=== PATIENT | female | born 1970 | race American Indian/Alaskan Native ===

== ENCOUNTER → 2022-04-10 09:18 | Outpatient (BNVA) | payer MEDICAID, SELFPAY | PROVIDERS: PCP Internal Medicine; Visit Provider Internal Medicine Endocrinology, Diabetes & Metabolism | DX: E11.65 Type 2 diabetes mellitus with hyperglycemia (principal); Z79.4 Long term (current) use of insulin | CPT/HCPCS: 82947; 83036; 99202 ==

== ENCOUNTER → 2022-05-07 12:55 | Outpatient (BNVA) | payer MEDICAID, SELFPAY | PROVIDERS: PCP Internal Medicine; Visit Provider Registered Nurse Diabetes Educator | DX: E11.65 Type 2 diabetes mellitus with hyperglycemia (principal) | CPT/HCPCS: 99211; 99499 ==

== ENCOUNTER → 2022-05-22 12:32 | Outpatient (BNVA) | payer MEDICAID, SELFPAY | PROVIDERS: PCP Internal Medicine; Visit Provider Registered Nurse Diabetes Educator | DX: E11.65 Type 2 diabetes mellitus with hyperglycemia (principal) | CPT/HCPCS: 99211; 99499 ==

== ENCOUNTER → 2022-05-30 14:56 | Outpatient (BNVA) | payer MEDICAID, SELFPAY | PROVIDERS: PCP Internal Medicine; Visit Provider Surgery Vascular Surgery | DX: I83.11 Varicose veins of right lower extremity with inflammation (principal) | CPT/HCPCS: 99212 ==

== ENCOUNTER → 2022-06-11 12:38 | Outpatient (BNVA) | payer MEDICAID, SELFPAY | PROVIDERS: PCP Internal Medicine; Visit Provider Orthopaedic Surgery | DX: G56.01 Carpal tunnel syndrome, right upper limb (principal) | CPT/HCPCS: 99202 ==

== ENCOUNTER → 2022-07-08 10:38 | Outpatient (BNVA) | payer MEDICAID, SELFPAY | PROVIDERS: PCP Internal Medicine; Visit Provider Dietitian, Registered | DX: E11.65 Type 2 diabetes mellitus with hyperglycemia (principal); Z71.3 Dietary counseling and surveillance | CPT/HCPCS: 97802 ==

== ENCOUNTER 2022-07-18 10:05 | Outpatient (REF) | payer MEDICAID, SELFPAY ==
--- NOTE | ~2022-07-18 | US_ITS ---
EXAMINATION: US LOWER EXTREMITY VENOUS (REFLUX EXAM), BILATERAL CLINICAL INDICATION: Varicose veins COMPARISON: None. TECHNIQUE: Color flow triplex imaging and compression Doppler was performed to evaluate both the deep and the superficial systems bilaterally. To evaluate the superficial system, the examination was performed in the upright position. Color-flow Doppler ultrasound and compression ultrasound were utilized. In addition, maneuvers were utilized to demonstrate reflux. FINDINGS: 1. DEEP VENOUS ULTRASOUND OF THE RIGHT LOWER EXTREMITY: Common Femoral Vein: Compressible, normal respiratory variation and augmented flow. Femoral Vein: Compressible, normal color flow and augmentation. Popliteal Vein: Compressible, normal augmentation. Deep Reflux: There is no evidence of reflux in the deep system in either the common femoral vein or the popliteal vein. There is no evidence of a Joseph's cyst. 2. SUPERFICIAL ULTRASOUND WITH DOPPLER OF RIGHT LOWER EXTREMITY: GREAT SAPHENOUS VEIN: Saphenofemoral Junction: 0.8 cm; Reflux: 0 ms Proximal Thigh: 0.6 cm; Reflux: 0 ms Mid Thigh: 0.4 cm; Reflux: 3592 ms Above Knee: 0.3 cm; Reflux: 0 ms At Knee: 0.3 cm; Reflux: 0 ms Below Knee: 0.2 cm; Reflux: 0 ms Mid Calf: 0.3 cm; Reflux: 0 ms Ankle: 0.3 cm; Reflux: 0 ms DUPLICATED MEDIAL GREAT SAPHENOUS VEIN: SFJ: 0.4cm Reflux: NA Mid thigh: 0.2 cm Reflux: 1932ms DUPLICATED LATERAL GREAT SAPHENOUS VEIN: Diameter: None Imaged Reflux: NA SMALL SAPHENOUS VEIN: Proximal: 0.4 cm; Reflux: 0 ms Distal: 0.3 cm; Reflux: 0 ms VEIN OF GIACOMINI: None Imaged. PERFORATORS: Location: None Imaged Size: NA Reflux: NA VARICOSITIES: Location: None Imaged Size: NA Reflux: NA 3. DEEP VENOUS ULTRASOUND OF THE LEFT LOWER EXTREMITY: Common Femoral Vein: Compressible, normal respiratory variation and augmented flow. Femoral Vein: Compressible, normal color flow and augmentation. Popliteal Vein: Compressible, normal augmentation. Deep Reflux: There is no evidence of reflux in the deep system in either the common femoral vein or the popliteal vein. There is no evidence of a Joseph's cyst. 4. SUPERFICIAL ULTRASOUND WITH DOPPLER OF LEFT LOWER EXTREMITY: GREAT SAPHENOUS VEIN: Saphenofemoral Junction: 0.5 cm; Reflux: 0 ms Proximal Thigh: 0.5 cm; Reflux: 0 ms Mid Thigh: 0.4 cm; Reflux: 3604 ms Above Knee: 0.5 cm; Reflux: 3600 ms At Knee: 0.7 cm; Reflux: 3604 ms Below Knee: 0.5 cm; Reflux: 3304 ms Mid Calf: 0.3 cm; Reflux: 2276 ms Ankle: 0.2 cm; Reflux: 1680 ms DUPLICATED MEDIAL GREAT SAPHENOUS VEIN: Diameter: None Imaged Reflux: NA DUPLICATED LATERAL GREAT SAPHENOUS VEIN: Diameter: None Imaged Reflux: NA SMALL SAPHENOUS VEIN: Proximal: 0.2 cm; Reflux: 0 ms Distal: 0.1 cm; Reflux: 0 ms VEIN OF GIACOMINI: None Imaged. PERFORATORS: Location: None Imaged Size: NA Reflux: NA VARICOSITIES: Location: None Imaged Size: NA Reflux: NA US/US venous duplex LE BI IMPRESSION: 1. Right great saphenous venous insufficiency. 2. Left great saphenous venous insufficiency.
== END 2022-07-18 10:06 | disposition home or self-care (01) ==
LOC: HO.US 10:05
PROVIDERS: PCP Internal Medicine; Visit Provider Surgery Vascular Surgery
DX: I83.11 Varicose veins of right lower extremity with inflammation (principal)
CPT/HCPCS: 93970

== ENCOUNTER → 2022-07-19 09:34 | Outpatient (BNVA) | payer MEDICAID, SELFPAY | PROVIDERS: PCP Internal Medicine; Visit Provider Internal Medicine Endocrinology, Diabetes & Metabolism | DX: E11.65 Type 2 diabetes mellitus with hyperglycemia (principal) | CPT/HCPCS: 82947; 83036; 99212 ==

== ENCOUNTER → 2022-07-23 15:24 | Outpatient (BNVA) | payer MEDICAID, SELFPAY | PROVIDERS: PCP Internal Medicine; Visit Provider Surgery Vascular Surgery | DX: I83.12 Varicose veins of left lower extremity with inflammation (principal); E11.65 Type 2 diabetes mellitus with hyperglycemia; Z87.891 Personal history of nicotine dependence | CPT/HCPCS: 99212 ==

== ENCOUNTER 2022-08-22 09:22 | Day surgery (SDC) | payer MEDICAID, SELFPAY ==
[2022-08-22 09:38] VITALS: BP 138/75; PULSE 64; RESP 16; TEMP 36.2; O2SAT 97; BMI 41.3
[2022-08-22 12:27] VITALS: BP 146/82; PULSE 65; RESP 18; O2SAT 95
--- NOTE | 2022-08-22 13:01 | MHC.SHP ---
Pre-Procedural Eval Section A Date of Service: 08/22/22 The patient is an INPATIENT: No Changes since office visit: No Cold of Flu in the past 2 weeks, No New Medical Problems, No Changes in Medication and No Patient answered all questions The History & Physical has been completed within 30 days and I have reviewed it.: Yes Section B Chief Complaint: Carpal tunnel syndrome, right upper limb Allergies: Allergies Allergy/AdvReac Type Severity Reaction Status Date / Time No Known Allergies Allergy Verified 07/23/22 15:26 Plan I have reviewed the history and physical and performed a pertinent physical examination on my patient. No changes have occurred unless specified. Time Spent With Patient Time: Total time managing care of this patient today ____ minutes.
--- NOTE | 2022-08-22 13:02 | W.PM.OPN ---
Operative Note Operative Note Date of Service: 08/22/22 Narrative: Preop diagnosis: 1. Right Carpal tunnel syndrome Postop diagnosis: same Procedure: 1. Right Carpal tunnel release Surgeon: Carolann Johnson MD Anesthesia: local block using 1% lidocaine with epinephrine Findings: Thickened transverse carpal ligament. EBL: Less than 5 mL Specimens: None Complications: None Disposition: Brought to recovery room in stable condition Plan: Follow-up for 10-14 days for wound check and suture removal Indications: The patient is 52 years old, with right carpal tunnel syndrome that has been unresponsive to nonoperative management. The risks and benefits of operative treatment including but not limited to risk of damage to blood vessels, nerves, tendons, infection, persistent pain, persistent symptoms, or possible need for additional surgery were discussed with the patient and the patient wishes to proceed with surgery. Procedure: Once consent was obtained a local block was performed using a combination of 1% lidocaine with epinephrine. The patient was then brought back to the operating suite and placed on the operative table in supine position. The right upper extremity was prepped and draped in a standard surgical fashion. Once assured that we had a good block, a 2.0 cm longitudinal incision was made centered over the carpal tunnel. The incision was made through the skin to the subcutaneous tissues using a #15 blade. Dissection was made down to the level of the transverse carpal ligament with care being taken to protect the palmar cutaneous nerve. Once the transverse carpal ligament was clearly visualized, a longitudinal incision was made in the transverse carpal ligament 1st using a #15 blade, then using tenotomy scissors under direct visualization. Care was taken to look for and protect the motor branch of the median nerve when seen in this area. Once satisfied with our carpal tunnel release the wound was copiously irrigated with normal saline and hemostasis was obtained with a brief period of local pressure. The skin edges were reapproximated with some 5.0 nylon suture material and a sterile dressing was applied. The patient appears to have tolerated the procedure well and with no complications. All digits were well vascularized at the conclusion of the case.
== END 2022-08-22 13:03 | disposition home or self-care (01) ==
PROVIDERS: PCP Internal Medicine; Visit Provider Orthopaedic Surgery
PROC: (CPT 64721; principal; 2022-08-22 10:50)
DX: G56.01 Carpal tunnel syndrome, right upper limb (principal); R20.0 Anesthesia of skin; R20.2 Paresthesia of skin; E11.65 Type 2 diabetes mellitus with hyperglycemia; Z79.4 Long term (current) use of insulin; Z79.82 Long term (current) use of aspirin; Z79.899 Other long term (current) drug therapy; Z87.891 Personal history of nicotine dependence
CPT/HCPCS: 64721; J0171; J2795

== ENCOUNTER → 2022-09-04 14:07 | Outpatient (BNVA) | payer MEDICAID, SELFPAY | PROVIDERS: PCP Internal Medicine; Visit Provider Orthopaedic Surgery | DX: Z13.89 Encounter for screening for other disorder (principal) ==

== ENCOUNTER 2022-10-14 16:56 | Outpatient (REF) | payer MEDICAID, SELFPAY ==
--- NOTE | ~2022-10-14 | XR_ITS ---
EXAMINATION: XR FOOT, LEFT CLINICAL INFORMATION: Pain. COMPARISON: None available. TECHNIQUE: AP, lateral, and oblique views of the left foot. FINDINGS: There is a small calcaneal heel and retrocalcaneal enthesophytes. No visible fracture, dislocation seen. The joint spaces are maintained normal. The soft tissues are normal. XR/XR foot LT min 3V IMPRESSION: Small calcaneal heel and retrocalcaneal enthesophytes. No visible acute fracture or dislocation seen.
== END 2022-10-14 16:57 | disposition home or self-care (01) ==
LOC: HO.XRAY 16:56
PROVIDERS: Absent Provider Internal Medicine; PCP Internal Medicine; Visit Provider Nurse Practitioner Primary Care
DX: M79.672 Pain in left foot (principal)
CPT/HCPCS: 73630

== ENCOUNTER → 2022-10-30 14:44 | Outpatient (BNVA) | payer MEDICAID, SELFPAY | PROVIDERS: PCP Internal Medicine; Visit Provider Physician Assistant | DX: Z48.811 Encounter for surgical aftercare following surgery on the nervous system (principal) | CPT/HCPCS: 10160; 64999; 99212 ==

== ENCOUNTER → 2022-11-19 11:57 | Outpatient (BNVA) | payer MEDICAID, SELFPAY | PROVIDERS: PCP Internal Medicine; Visit Provider Internal Medicine Endocrinology, Diabetes & Metabolism | DX: E11.65 Type 2 diabetes mellitus with hyperglycemia (principal); E78.5 Hyperlipidemia, unspecified; Z79.4 Long term (current) use of insulin; Z79.899 Other long term (current) drug therapy | CPT/HCPCS: 82947; 83036; 99212 ==

== ENCOUNTER → 2022-12-25 12:14 | Outpatient (BNVA) | payer MEDICAID, SELFPAY | PROVIDERS: PCP Internal Medicine; Visit Provider Dietitian, Registered | DX: E11.65 Type 2 diabetes mellitus with hyperglycemia (principal); Z71.3 Dietary counseling and surveillance | CPT/HCPCS: 97803 ==

== ENCOUNTER → 2023-01-07 13:15 | Outpatient (BNVA) | payer MEDICAID, SELFPAY | PROVIDERS: PCP Internal Medicine; Visit Provider Dietitian, Registered | DX: E11.65 Type 2 diabetes mellitus with hyperglycemia (principal) | CPT/HCPCS: 97803 ==

== ENCOUNTER 2023-02-03 10:58 | Outpatient (REF) | payer MEDICAID, SELFPAY | END 2023-02-03 10:59 | disposition home or self-care (01) | LOC: HO.LAB 10:58 | PROVIDERS: PCP Internal Medicine; Visit Provider Internal Medicine Endocrinology, Diabetes & Metabolism | DX: E11.65 Type 2 diabetes mellitus with hyperglycemia (principal) | CPT/HCPCS: 36415; 80061; 82043 ==

== ENCOUNTER 2023-03-18 13:54 | Outpatient (AMB) | payer MEDICAID, SELFPAY ==
--- NOTE | 2023-03-18 13:57 | A.OFFVIS_ITS ---
Intake Vital Signs 03/18/23 13:58 Height 5 ft 2 in Weight 233 lb BMI 42.6 Intake Visit Reasons: R/S x 3 Left GSV Venaseal Intake Note: pt needs re-eval for Left LE Venaseal, has some questions about risk associated, has Left LE pain Accompanied by: Self / Same As Patient Allergies No Known Allergies Allergy (Verified 10/30/22 14:51) HPI R/S x 3 Left GSV Venaseal HPI Details Very nervous 53-year-old female presents for follow-up regarding venous insufficiency. She continues to have lower extremity pain discomfort and swelling of the lower extremities. She has been compliant with her compression stockings with minimal relief. She unfortunately has rescheduled 3 times in the past with us. I do believe some of that may be related to nervousness. She now presents for follow-up and discussion about the venous procedure. [facility] Medical History Uncontrolled type 2 diabetes mellitus with hyperglycemia Surgical History Hx of inguinal hernia surgery Family History Mother Diabetes High blood pressure Arthritis Heart problem Social History Household Members: Children Household Members Other:: 3 daughters, caregiver Alcohol intake: current Alcohol intake frequency: holidays/special occasions only Patient Tobacco Use Status: Former Tobacco user Current occupational status: disabled Current occupation: rt hand Review of Systems Const Reports as per HPI ENT Reports no additional complaints Card Denies chest pain, Denies chest pain at rest and Denies chest pain with activity Resp Denies chest congestion and Denies cough GI Reports no additional complaints Musc Details: pain over varicosities, aching of lower extremities, swelling, cramping, heaviness and tiredness, itching Denies abnormal gait Skin/Breast Reports pruritus and Denies wounds Neuro Reports no additional complaints and Denies abnormal gait Psych Denies no additional complaints Physical Exam Vital Signs: BMI result Body Mass Index 42.6 Const General: cooperative, healthy appearing and comfortable Orientation/consciousness: oriented to person, oriented to place and oriented to time Neck Carotids: no bruits Chest Chest palpation & inspection: normal inspection of the chest and normal palpation of entire chest wall Resp Effort & Inspection: normal respiratory effort and able to speak in complete sentences Cardio Rate: regular rate Heart sounds: S1 normal heart sound present and S2 normal heart sound present Peripheral pulses: Peripheral pulses 2+ throughout GI Inspection: Yes normal to inspection Skin Other: +2 edema, large rope-like varicosities greater than 4 mm CEAP Classification C4 - skin color changes Ep - Etiology Primary As - superficial veins P - reflux General skin exam: dry skin Neuro General: oriented to person, oriented to place and oriented to time Extrem Right lower extremity: full ROM, normal capillary refill and edema Left lower extremity: full ROM, normal capillary refill and edema Psych Mental Status: mental status grossly normal Results Reviewed Results Reviewed: Brief summary of venous insufficiency testing is as follows: right great saphenous vein: Positive right small saphenous vein: negative right accessory vein: none present left great saphenous vein: Positive left small saphenous vein: negative left accessory vein: none present Please note there is no evidence of any venous aneurysms or significant tortuosity Assessment & Plan Assessment & Plan (1) Varicose veins of left lower extremity with inflammation: Code(s): I83.12 - Varicose veins of left lower extremity with inflammation Plan: This patient has varicose veins with inflammation. They continue to be a source of discomfort for the patient. The patient has tried conservative treatment with compression, leg elevation and exercise program for over 3 months time. They have been compliant with all treatment. This has provided minimal relief for the patient. I do not anticipate this course of treatment will alter the underlying etiology. The patient has been scheduled for lower extremity venous treatment inclusive of --- left great saphenous vein Cyanoacralate abla tion. Risks, benefits, and complications of this procedure has been discussed in detail with the patient including but not limited to bleeding, infection, and the development of a DVT. The patient has demonstrated a clear understanding and has consented. We will schedule the patient as soon as possible. Thank you for allowing us to participate in this patient's care. If there are any quest ions or concerns please do not hesitate to contact us. Coding Level of Care Code Est Pt Level 4 (43218) Diagnoses Varicose veins of left lower extremity with inflammation I83.12
[2023-03-18 13:58] VITALS: BMI 42.6
== END 2023-03-18 14:31 | disposition home or self-care (01) ==
PROVIDERS: PCP Internal Medicine; Visit Provider Surgery Vascular Surgery
DX: I83.12 Varicose veins of left lower extremity with inflammation (principal)
CPT/HCPCS: 99214

== ENCOUNTER → 2023-03-18 13:54 | Outpatient (BNVA) | payer MEDICAID, SELFPAY | PROVIDERS: PCP Internal Medicine; Visit Provider Surgery Vascular Surgery | DX: I83.12 Varicose veins of left lower extremity with inflammation (principal) | CPT/HCPCS: 99212 ==

== ENCOUNTER 2023-05-16 12:37 | Outpatient (AMB) | payer MEDICAID, SELFPAY ==
--- NOTE | 2023-05-16 12:37 | MHC.OFFVIS ---
Intake Vital Signs 05/16/23 12:38 Temp 99.0 F Temp Source Temporal Artery Scan Intake Visit Reasons: Left GSV Venaseal Allergies No Known Allergies Allergy (Verified 05/16/23 12:37) HPI Left GSV Venaseal HPI Details Very complex 53-year-old female presents for follow-up evaluation for venous insufficiency. She was actually scheduled for a procedure today. She has canceled several times. She yesterday call the office and stated she wanted to cancel due to a headache. We requested that she does come in so we can properly assess her to see if she is not eligible to have this procedure. Upon arrival she explained that she did have a headache and a sinus condition and a sore throat. She is now for follow-up evaluation. Of note my medical geneticist Aaron was present during the entire visit in addition he is a certified medical spanish interpreter/translator Please note that she has been scheduled for the following dates and subsequently canceled the following dates 08/23/2022, 09/20/2022, 11/08/2022, 12/20/2022, 02/07/2023, 04/11/2023, 05/16/2023. [facility] Medical History Uncontrolled type 2 diabetes mellitus with hyperglycemia Surgical History Hx of inguinal hernia surgery Family History Mother Diabetes High blood pressure Arthritis Heart problem Social History Household Members: Children Household Members Other:: 3 daughters, caregiver Alcohol intake: current Alcohol intake frequency: holidays/special occasions only Patient Tobacco Use Status: Former Tobacco user Current occupational status: disabled Current occupation: rt hand Review of Systems Const All systems reviewed & are unremarkable except as noted in HPI and below Reports no additional complaints ENT Reports Normal hearing present Card Denies chest pain, Denies chest pain at rest, Denies chest pain with activity and Denies pedal edema Resp Denies cough GI Denies abdominal pain Musc Details: pain over varicosities, aching of lower extremities, swelling, cramping, heaviness and tiredness, itching Denies abnormal gait, Denies muscle cramps and Denies radiating pain into limb Skin/Breast Denies skin ulcer and Denies wounds Neuro Reports Normal hearing present and Denies abnormal gait Psych Reports no additional complaints Physical Exam Vital Signs: Last Vital Signs Temp 99.0 F 05/16/23 12:38 Const General: cooperative, healthy appearing and comfortable Orientation/consciousness: oriented to person, oriented to place and oriented to time HEENT Head: Yes normal to inspection Neck Neck: Yes normal visual inspection Carotids: no bruits Chest Chest palpation & inspection: normal inspection of the chest Resp Effort & Inspection: normal respiratory effort and able to speak in complete sentences Auscultation: clear to auscultation bilaterally, no crackles, no rales, no rhonchi and no wheezes Cardio Rate: regular rate Rhythm: regular rhythm Heart sounds: S1 normal heart sound present and S2 normal heart sound present Bruits: no carotid bruits Peripheral pulses: Peripheral pulses 2+ throughout GI Inspection: Yes normal to inspection Skin Other: +2 edema, large rope-like varicosities greater than 4 mm CEAP Classification C4 - skin color changes Ep - Etiology Primary As - superficial veins P - reflux General skin exam: dry skin Wounds: no wounds Hair: normal Neuro General: oriented to person, oriented to place and oriented to time Cranial nerves: Yes CN's II-XII intact bilaterally and Yes Normal hearing present Cognition (Neuro): normal cognition Motor exam (neuro): 5/5 motor strength present throughout Extrem Other: venous exam: No significant superficial varicosities or spider telangiectasias, minimal edema General: No clubbing, No cyanosis and No edema Right lower extremity: full ROM, normal capillary refill and edema Left lower extremity: full ROM, normal capillary refill and edema Psych Appearance: grossly normal Mental Status: mental status grossly normal Speech and movement: Normal speech and movement present Assessment & Plan Assessment & Plan (1) Varicose veins of left lower extremity with inflammation: Code(s): I83.12 - Varicose veins of left lower extremity with inflammation Plan: In short the patient has venous disease. She has been fairly noncompliant and has canceled several times. Unfortunately 1 of those cancellations was due to a surgical emergency where I was unavailable but the other 6 times was cancellation on her part. I did explain that our policy is we allow up to 3 and we are unable to reschedule. We have allowed her on several occasions to root try to reschedule. Unfortunately we will not be able to assist her. I did state that there is several other Vein Clinics in the area which we would be happy to refer her to. In addition we are booking out several months in terms of venous procedures, and may not be able to get her back in on a timely basis. She is officially being discharged from our practice and will be happy to forward her records to the institution of her choosing. We did mention that [facility] do offer these services. We wish her the best of luck. Thank you for allowing us to assist in her care. Coding Level of Care Code Est Pt Level 4 (42145) Diagnoses Varicose veins of left lower extremity with inflammation I83.12
[2023-05-16 12:38] VITALS: TEMP 37.2
== END 2023-05-16 14:45 | disposition home or self-care (01) ==
LOC: HO.HVS 12:37
PROVIDERS: PCP Internal Medicine; Visit Provider Surgery Vascular Surgery
DX: I83.12 Varicose veins of left lower extremity with inflammation (principal)
CPT/HCPCS: 99213

== ENCOUNTER → 2023-05-16 12:37 | Outpatient (BNVA) | payer MEDICAID, SELFPAY | PROVIDERS: PCP Internal Medicine; Visit Provider Surgery Vascular Surgery | DX: I83.12 Varicose veins of left lower extremity with inflammation (principal); E11.65 Type 2 diabetes mellitus with hyperglycemia | CPT/HCPCS: 99212 ==

== ENCOUNTER 2023-06-09 12:24 | Outpatient (REF) | payer MEDICAID, SELFPAY ==
[2023-06-09 13:20] LABS: MANUAL DIFF FLAG NO
[2023-06-09 13:43] LABS: Basophils Percent Auto 0.2 % (0-2); Eosinophils Absolute Auto 0.4 X10*3/uL (0.0-0.4); Eosinophils Percent Auto 3.1 % (0-4); Hematocrit 43.3 % (37.0-47.0); Hemoglobin 13.3 g/dl (12.0-16.0); Imm Gran Abs Auto 0.05 X10*3/uL (0.00-0.03); Imm Gran Pct Auto 0.4 % (0.0-0.4); Lymphocytes Absolute Auto 4.4 X10*3/uL (1.2-4.9); Lymphocytes Percent Auto 33.6 % (20-40); Mean Corpuscular HGB Conc 30.7 g/dl (31.0-35.0); Mean Corpuscular Hemoglobin 26.2 pg (27.0-33.0); Mean Corpuscular Volume 85.2 fL (80.0-98.0); Mean Platelet Volume 10.6 fL (9.4-12.3); Monocytes Absolute Auto 0.8 X10*3/uL (0.1-1.2); Monocytes Percent Auto 5.8 % (2-11); Neutrophils Absolute Auto 7.4 x10*3/uL (2.0-8.3); Neutrophils Percent Auto 56.9 % (45-73); Platelet Count 365 X10*3/uL (160-400); Red Blood Count 5.08 X10*6/uL (4.20-5.50); Red Cell Distribution Width 14.2 % (11.0-16.0)
[2023-06-09 14:14] LABS: Alanine Aminotransferase 23 U/L (0-31); Albumin Level 4.4 g/dL (3.5-5.0); Alkaline Phosphatase 123 U/L (39-117); Anion Gap 15 (12-20); Aspartate Amino Transferase 16 U/L (5-31); Bilirubin Direct 0.1 mg/dL (0.0-0.5); Bilirubin Total 0.4 mg/dL (0.0-1.0); Blood Urea Nitrogen 13 mg/dL (9-16); Calcium 10.3 mg/dL (8.4-10.2); Carbon Dioxide 29 mmol/L (22-29); Chloride 98 mmol/L (96-108); Cholesterol 214 mg/dL (<200); Estimated Glomerular Filt Rate > 60; Glucose Random 189 mg/dL (60-115); HDL Cholesterol 52 mg/dL (>40); LDL Cholesterol Calculated 127 mg/dL (<100); Potassium 3.8 mmol/L (3.3-5.1); Sodium 138 mmol/L (135-145); Total Protein 7.9 g/dL (6.5-8.0); Triglycerides 175 mg/dL (<150)
[2023-06-09 14:20] LABS: Creatinine Urine 109.53 mg/dL; Microalbum/Creatinine Ratio Ur 10.9 ug/mg cr (<30)
[2023-06-09 14:28] LABS: TSH reflex Free T4 2.03 uIU/mL (0.32-4.0)
[2023-06-09 15:45] LABS: CT PCR NOT DETECTED (Not Detect.); NG PCR NOT DETECTED (Not Detect.)
[2023-06-10 07:27] LABS: HIV AB/AG Nonreactive (Nonreactive); HIV Num 1 0.06 S/CO (0.00-0.99); ~HepC Num1 0.03 S/CO (0.00-0.79); ~Hepatitis C Antibody Nonreactive (Nonreactive)
[2023-06-10 14:52] LABS: RPR Rapid Plasma Reagin NON-REACTIVE (NON-REACTIVE)
== END 2023-06-09 12:25 | disposition home or self-care (01) ==
LOC: HO.HHCL 12:24
PROVIDERS: Visit Provider Internal Medicine
DX: I10 Essential (primary) hypertension (principal); E11.65 Type 2 diabetes mellitus with hyperglycemia; Z79.4 Long term (current) use of insulin
CPT/HCPCS: 0353U; 36415; 80048; 80061; 80076; 82043; 82570; 84443; 85025; 86592; 86803; 87389

== ENCOUNTER 2023-10-29 10:29 | Outpatient (AMB) | payer MEDICAID, SELFPAY ==
[2023-10-29 10:36] VITALS: BP 124/70; BMI 39.1
--- NOTE | 2023-10-29 10:36 | A.OFFVIS_ITS ---
Intake Vital Signs 10/29/23 10:36 Height 5 ft 2 in Weight 213 lb 13.574 oz BMI 39.1 BP 124/70 Blood Pressure Location Lt brachial Position Sitting Intake Visit Reasons: T2DM Intake Note: Patient presents today to follow up on D2MT. Last Diabetic Eye exam: Patient doesn't remember Last Podiatry Visit: Doesn't have one Random Glucose: 132 mg/dl HgA1c: 7.7% [employer] Required: No Accompanied by: Self / Same As Patient Allergies No Known Allergies Allergy (Verified 10/29/23 10:46) Medication List - Last Reconciled 10/29/23 by Kapil Mao MD acetaminophen ER 1,300 mg PO Q8H PRN alcohol swabs (Alcohol Prep Pads) 0 pad topical aspirin 81 mg PO DAILY atorvastatin 10 mg PO DAILY blood sugar diagnostic (FreeStyle Lite Strips) As directed blood-glucose meter (FreeStyle Lite Meter kit) As directed bupropion HCl 300 mg PO QAM cholecalciferol (vitamin D3) (Vitamin D3) 50 mcg PO DAILY clonazepam 0.25 - 0.5 mg PO DAILY PRN cyanocobalamin (vitamin B-12) 100 mcg PO DAILY dulaglutide (Trulicity) 3 mg (0.5 mL) subcut QWEEK flash glucose scanning reader (IotelligentStyle Sayda 2 [place]) As directed flash glucose sensor (FreeStyle Sayda 14 Day Sensor kit) USE DIRECTED AND CHANGE EVERY 14 DAYS fluoxetine 20 mg PO QAM glucagon 3 mg/actuation (Baqsimi) 3 mg intranasal ONCE hydrochlorothiazide 12.5 mg PO DAILY hydrocodone-acetaminophen 5-325 mg 1 tab PO Q4-6H PRN ibuprofen 600 mg PO TID PRN insulin glargine (Lantus Solostar U-100 Insulin) 50 units subcut QPM lancets (FreeStyle Lancets) As directed checks blood sugar 4 times today melatonin ER 10 mg PO BEDTIME PRN metformin 1,000 mg PO BID oxybutynin chloride 5 mg PO BID pen needle, diabetic (BD Janeen 2nd Gen Pen Needle) As directed once a day sulfamethoxazole-trimethoprim 800-160 mg (Bactrim DS) 1 tab PO BID 10 days vitamin B complex (Vitamins B Complex capsule) 1 cap PO DAILY HPI HPI Comments History of Present Illness Details 53 YO F who is seen in consultation for T2DM at the request of PCP. Initially diagnosed with T2DM in 5 yrs ago . Was initially started on treatment with metformin. Current regimen Lantus 50 units Trulicity3 mg Q weekly switched to Ozempic 0.5 mg Qwkly Metformin 1000 b.i.d. . unfortunately, patient did not bring meter or log book to follow-up visit No hypoglycemia Family history of T2DM in Mother and brother have Type 2 DM . Has eyes checked yearly, last eye exam . Needs to make appt , denies retinopathy. Denies neuropathy, Denies nephropathy, Not on CASSANDRA/ARB. Has HLD, on statin. Denies CAD. Not Had diabetes education. [facility] Medical History Uncontrolled type 2 diabetes mellitus with hyperglycemia Surgical History Hx of inguinal hernia surgery Family History Mother Diabetes High blood pressure Arthritis Heart problem Social History Household Members: Children Household Members Other:: 3 daughters, caregiver Alcohol intake: current Alcohol intake frequency: holidays/special occasions only Patient Tobacco Use Status: Former Tobacco user Current occupational status: disabled Current occupation: rt hand Physical Exam Vital Signs: Last Vital Signs BP 124/70 10/29/23 10:36 BMI result Body Mass Index 39.1 Absence of Cushingoid features. Absence of acromegalic features. Neck exam reveals nl size thyroid about 15 gms. No thyroid nodules palpable. No carotid bruits present. Lungs CTA. Heart S1 S2, Reg R/R. No M/R/ G. Skin exam reveals absence of vitiligo or acanthosis nigricans. Abdominal exam reveals Soft NT/ND with NA BS. No organomegaly present. Neck Other: . Extrem Other: Visual exam of foot performed. No ulcerations or open lesions. No onchomycosis, no callouses.Pulses 2 + distally Sensation intact to monofilament exam. Vibratory sensation sensed is intact with 128 Hz tuning fork Results AMB Hemoglobin A1c AMB Hemoglobin A1c 7.7 % Last Edit by JASON Kline on 10/29/23 10:58 Results Reviewed Results Reviewed: Laboratory Last Values Glucose (Clinic) 132 mg/dL (60-115) H 10/29/23 10:49 Assessment & Plan Assessment & Plan (1) Uncontrolled type 2 diabetes mellitus with hyperglycemia: Comment: A1c at 8.0% on 11/19/22 Code(s): E11.65 - Type 2 diabetes mellitus with hyperglycemia Plan: This is a 52-year-old female with a history of type 2 diabetes being treated metformin,Ozempic and basal insulin with fair glycemic control and no known microvascular or macrovascular complications The plan is to have the patient bring either the sensor or glucometer follow-up visits. Continue present regimen for now as cannot make adjustments due to lack of data. Goal would be to get HbA1c < 6.5. once patient resumes the sensor and could monitor for hypoglycemia, Also referred patient to Podiatry Orders: Orders AMB Hemoglobin A1c Today E11.65 - Type 2 diabetes mellitus with hyperglycemia, Z13.9 - Encounter for screening, unspecified Referrals Podiatry Referral E11.65 - Type 2 diabetes mellitus with hyperglycemia Medications: New semaglutide (Ozempic) 0.5 mg (0.736 mL) subcut QWEEK 3 mL 4RF blood-glucose meter,continuous (FreeStyle Sayda 3 [place]) As directed 1 ea 0RF semaglutide (Ozempic) 0.5 mg (0.736 mL) subcut QWEEK 3 mL 4RF blood-glucose sensor (FreeStyle Sayda 3 Sensor device) As directed change every 14 days 2 ea 4RF Discontinued dulaglutide (Trulicity) Discontinued Reason: Doctor's Order 3 mg (0.5 mL) subcut QWEEK 2 mL 5RF flash glucose sensor (FreeStyle Sayda 14 Day Sensor kit) Discontinued Reason: Doctor's Order USE DIRECTED AND CHANGE EVERY 14 DAYS 2 ea 3RF Coding Level of Care Code Est Pt Level 4 (37073) Diagnoses Uncontrolled type 2 diabetes mellitus with hyperglycemia E11.65
[2023-10-29 10:52] LABS: Glucose, Whole Blood 132 mg/dL (60-115)
== END 2023-10-29 11:09 | disposition home or self-care (01) ==
PROVIDERS: PCP Internal Medicine; Referring Provider Internal Medicine; Visit Provider Internal Medicine Endocrinology, Diabetes & Metabolism
DX: Z13.9 Encounter for screening, unspecified (principal); E11.65 Type 2 diabetes mellitus with hyperglycemia
CPT/HCPCS: 99214

== ENCOUNTER → 2023-10-29 10:29 | Outpatient (BNVA) | payer MEDICAID, SELFPAY | PROVIDERS: PCP Internal Medicine; Visit Provider Internal Medicine Endocrinology, Diabetes & Metabolism | DX: E11.65 Type 2 diabetes mellitus with hyperglycemia (principal) | CPT/HCPCS: 82947; 83036; 99212 ==

== ENCOUNTER 2024-03-17 13:40 | Outpatient (AMB) | payer MEDICAID, SELFPAY ==
--- NOTE | 2024-03-17 13:32 | A.OFFVIS_ITS ---
Vital Signs 03/17/24 13:34 BP 128/66 Blood Pressure Location Rt brachial Position Sitting Pulse 78 Pulse Source Pulse Oximeter Intake Visit Reasons: T2DM/CONFIRMED Intake Note: Patient presents today to establish treatment for Type 2 Diabetes Mellitus: Last Diabetic eye exam was on: DUE Last Podiatry exam was on: Does not see a Surgical Pathologist Most recent HbA1c: 7.8%, 03/17/2024 Random Glucose- 221mg/dL, Today Blade Groover Required: No Accompanied by: Self / Same As Patient Allergies No Known Allergies Allergy (Verified 10/29/23 10:46) HPI Comments Details: 54 year old female with diabetes presenting for follow up Initially diagnosed with T2DM ~6 years ago Was initially started on treatment with metformin. Current regimen Lantus 50 units-compliant Trulicity3 mg Q weekly switched to Ozempic 0.5 mg Qwkly -compliant Metformin 1000 b.i.d. -compliant Sayda has been worn for past two weeks but only has transmitted infrequent-16%. TGT 50%, high 50%, low 0%. POC A1C today at 7.8%. She has been able to lose weight with the ozempic. Family history of T2DM in Mother and brother have Type 2 DM . Eye exam overdue-says she goes to [facility]-number provided for her Denies neuropathy-was referred to podiatry. Number given Denies nephropathy, Not on CASSANDRA/ARB. Has HLD, on statin. Denies CAD. Not Had diabetes education. ROS CONSTITUTIONAL: Denies weight loss, fever and chills. HEENT: Denies changes in vision and hearing. RESPIRATORY: Denies SOB and cough. CV: Denies palpitations and CP GI: Denies abdominal pain, nausea, vomiting and diarrhea. : Denies dysuria and urinary frequency. MSK: Denies new myalgia and joint pain. SKIN: Denies rash and pruritus. NEUROLOGICAL: Denies headache PSYCHIATRIC: Denies recent changes in mood. PHYSICAL EXAM: GENERAL: Alert and oriented x 3. NAD EYES: EOMI. Anicteric. HENT: Moist mucous membranes. No scleral icterus. No cervical lymphadenopathy. LUNGS: Clear to auscultation bilaterally. CARDIOVASCULAR: Regular rate and rhythm. +murmur ABDOMEN: Soft, non-tender +bs EXTREMITIES: No edema. Non-tender. SKIN: No rashes or lesions. Warm. NEUROLOGIC: No focal neurological deficits. CN II-XII grossly intact PSYCHIATRIC: Cooperative. Appropriate mood and affect [facility], [facility] Medical History Uncontrolled type 2 diabetes mellitus with hyperglycemia Surgical History Hx of inguinal hernia surgery Family History Mother Diabetes High blood pressure Arthritis Heart problem Social History Household Members: Children Household Members Other:: 3 daughters, caregiver Alcohol intake: current Alcohol intake frequency: holidays/special occasions only Patient Tobacco Use Status: Former Tobacco user Current occupational status: disabled Current occupation: rt hand Physical Exam Vital Signs: Last Vital Signs Pulse 78 03/17/24 13:34 BP 128/66 03/17/24 13:34 Results AMB Hemoglobin A1c AMB Hemoglobin A1c 7.8 % Last Edit by JASON Pate on 03/17/24 14:01 Results Reviewed Results Reviewed: Laboratory Last Values Glucose (Clinic) 221 mg/dL (60-115) H 03/17/24 13:49 Hgb A1c (Clinic) 7.8 % (4.0-6.0) H 03/17/24 14:00 Assessment & Plan Assessment & Plan (1) Uncontrolled type 2 diabetes mellitus with hyperglycemia: Comment: A1c at 8.0% on 11/19/22 Code(s): E11.65 - Type 2 diabetes mellitus with hyperglycemia Category: Medical Plan: A1C 7.8%. Doing well. Ordered new CGM and sensors Increase ozempic to 1 mg weekly continue current doses of insulin and metformin (2) Heart murmur: Code(s): R01.1 - Cardiac murmur, unspecified Category: Medical Plan: Note given to patient to discuss with PCP Orders: Orders AMB Hemoglobin A1c Today E11.65 - Type 2 diabetes mellitus with hyperglycemia Medications: New semaglutide 1 mg (0.75 mL) subcut QWEEK 3 mL 0RF insulin glargine (Lantus Solostar U-100 Insulin) 50 units (0.5 mL) subcut QPM 45 mL 3RF Refilled blood-glucose sensor (FreeStyle Syada 3 Sensor device) As directed change every 14 days 2 ea 5RF E11.65 - Type 2 diabetes mellitus with hyperglycemia blood-glucose meter,continuous (FreeStyle Sayda 3 [place]) As directed 1 ea 0RF E11.65 - Type 2 diabetes mellitus with hyperglycemia Discontinued semaglutide (Ozempic) Discontinued Reason: Doctor's Order 0.5 mg (0.736 mL) subcut QWEEK 3 mL 4RF Coding Level of Care Code Est Pt Level 5 (22752) Diagnoses Uncontrolled type 2 diabetes mellitus with hyperglycemia E11.65 Heart murmur R01.1
[2024-03-17 13:34] VITALS: BP 128/66; PULSE 78
[2024-03-17 13:54] LABS: Glucose, Whole Blood 221 mg/dL (60-115)
== END 2024-03-17 14:25 | disposition home or self-care (01) ==
PROVIDERS: PCP Internal Medicine; Referring Provider Internal Medicine; Visit Provider Internal Medicine
DX: E11.65 Type 2 diabetes mellitus with hyperglycemia (principal); R01.1 Cardiac murmur, unspecified
CPT/HCPCS: 99214

== ENCOUNTER → 2024-03-17 13:40 | Outpatient (BNVA) | payer MEDICAID, SELFPAY | PROVIDERS: PCP Internal Medicine; Visit Provider Internal Medicine | DX: E11.65 Type 2 diabetes mellitus with hyperglycemia (principal); R01.1 Cardiac murmur, unspecified | CPT/HCPCS: 82947; 83036; 99212 ==

== ENCOUNTER 2024-05-18 15:02 | Outpatient (REF) | payer MEDICAID, SELFPAY ==
[2024-05-18 16:46] LABS: MANUAL DIFF FLAG NO
[2024-05-18 16:57] LABS: Basophils Percent Auto 0.4 % (0-2); Eosinophils Absolute Auto 0.4 X10*3/uL (0.0-0.4); Eosinophils Percent Auto 3.3 % (0-4); Hematocrit 40.5 % (37.0-47.0); Hemoglobin 12.7 g/dl (12.0-16.0); Imm Gran Abs Auto 0.04 X10*3/uL (0.00-0.03); Imm Gran Pct Auto 0.4 % (0.0-0.4); Lymphocytes Absolute Auto 3.2 X10*3/uL (1.2-4.9); Lymphocytes Percent Auto 30.3 % (20-40); Mean Corpuscular HGB Conc 31.4 g/dl (31.0-35.0); Mean Corpuscular Hemoglobin 27.3 pg (27.0-33.0); Mean Corpuscular Volume 86.9 fL (80.0-98.0); Mean Platelet Volume 10.7 fL (9.4-12.3); Monocytes Absolute Auto 0.6 X10*3/uL (0.1-1.2); Monocytes Percent Auto 5.5 % (2-11); Neutrophils Absolute Auto 6.3 x10*3/uL (2.0-8.3); Neutrophils Percent Auto 60.1 % (45-73); Platelet Count 312 X10*3/uL (160-400); Red Blood Count 4.66 X10*6/uL (4.20-5.50); Red Cell Distribution Width 13.8 % (11.0-16.0); White Blood Count 10.5 X10*3/uL (4.8-10.8)
[2024-05-18 17:19] LABS: Alanine Aminotransferase 18 U/L (0-31); Albumin Level 4.1 g/dL (3.5-5.0); Alkaline Phosphatase 98 U/L (39-117); Anion Gap 12 (12-20); Aspartate Amino Transferase 28 U/L (5-31); Bilirubin Total 0.2 mg/dL (0.0-1.0); Blood Urea Nitrogen 14 mg/dL (9-16); C Reactive Protein 0.19 mg/dL (< or = 0.50); Calcium 9.8 mg/dL (8.4-10.2); Carbon Dioxide 27 mmol/L (22-29); Chloride 106 mmol/L (96-108); Cholesterol 161 mg/dL (<200); Estimated Glomerular Filt Rate > 60; Glucose Random 215 mg/dL (60-115); HDL Cholesterol 49 mg/dL (>40); LDL Cholesterol Calculated 72 mg/dL (<100); Potassium 4.2 mmol/L (3.3-5.1); Sodium 141 mmol/L (135-145); Total Protein 6.9 g/dL (6.5-8.0); Triglycerides 201 mg/dL (<150)
[2024-05-18 17:21] LABS: Creatinine Urine 120.83 mg/dL; Microalbum/Creatinine Ratio Ur 9.1 ug/mg cr (<30)
[2024-05-18 17:37] LABS: TSH reflex Free T4 1.48 uIU/mL (0.32-4.0)
[2024-05-18 17:42] LABS: Erythrocyte Sedimentation Rate 10 MM/HR (0-20)
[2024-05-19 12:01] LABS: HIV AB/AG Nonreactive (Nonreactive); HIV Num 1 0.05 S/CO (0.00-0.99); ~HepC Num1 0.08 S/CO (0.00-0.79); ~Hepatitis C Antibody Nonreactive (Nonreactive)
[2024-05-20 13:43] LABS: RPR Rapid Plasma Reagin NON-REACTIVE (NON-REACTIVE)
[2024-05-20 23:48] LABS: TS Negative Control Passed; TS Panel A 0; TS Panel B 0; TS Positive Control Passed; TSpotTB Negative (Negative)
[2024-05-21 14:13] LABS: Cyclic Citrullinated Peptide <16 UNITS
[2024-05-25 16:08] LABS: Anti Nuclear Antibody Screen POSITIVE (NEGATIVE)
== END 2024-05-18 15:03 | disposition home or self-care (01) ==
LOC: HO.HHCL 15:02
PROVIDERS: Visit Provider Internal Medicine
DX: M25.50 Pain in unspecified joint (principal); I10 Essential (primary) hypertension; E11.65 Type 2 diabetes mellitus with hyperglycemia; Z79.4 Long term (current) use of insulin; Z11.1 Encounter for screening for respiratory tuberculosis; Z11.3 Encounter for screening for infections with a predominantly sexual mode of transmission
CPT/HCPCS: 36415; 80053; 80061; 82043; 82306; 82570; 84443; 85025; 85652; 86038; 86039; 86140; 86200; 86481; 86592; 86803; 87389

== ENCOUNTER 2024-08-11 13:10 | Outpatient (AMB) | payer MEDICAID, SELFPAY ==
--- NOTE | 2024-08-11 13:30 | A.OFFVIS_ITS ---
Vital Signs 08/11/24 13:33 Height 5 ft 2 in Weight 213 lb 13.574 oz BMI 39.1 BP 122/66 Blood Pressure Location Rt brachial Position Sitting Pulse 72 Pulse Source Pulse Oximeter Intake Visit Reasons: DM Intake Note: Patient presents today for a follow-up on Type 2 Diabetes Mellitus: Last Diabetic eye exam was on: DUE Last Podiatry exam was on: Does not see a Media [employer] Director [employer] Most recent HbA1c: 8.8%, 08/11/2024 Random Glucose- 125 mg/dL, Today Ceo & Founder Required: Yes Ceo & Founder Language: Small [employer] I Assembler Services: Ceo & Founder Present Ceo & Founder Name: JASON Pate/KRYSTINA CAI Accompanied by: Self / Same As Patient Allergies No Known Allergies Allergy (Verified 08/11/24 13:39) HPI Comments Details: 54 year old female with diabetes presenting for follow up Initially diagnosed with T2DM ~6 years ago Was initially started on treatment with metformin. Current regimen Lantus 50 units-compliant Ozempic 1mg weekly (switched last time from ozempic 0.5) previously on Trulicity3 mg Metformin 1000 b.i.d. -taking only 1000mg daily A1C is 8.8% today. Up from previous, perhaps in the setting of her inconsistent metformin use. We will discontinue this today due to GI upset and increase ozempic (she wants to lose weight) and increase lantus Sayda has not been used consistently. She seems to have some trouble setting this up/monitoring-referred to certified adaptive physical educator today Family history of T2DM in Mother and brother have Type 2 DM . Eye exam overdue-says she goes to [facility]-number provided for her Denies neuropathy-was referred to podiatry. Number given Denies nephropathy, Not on CASSANDRA/ARB. Has HLD, on statin. Denies CAD. Not Had diabetes education. ROS CONSTITUTIONAL: Denies weight loss, fever and chills. HEENT: Denies changes in vision and hearing. RESPIRATORY: Denies SOB and cough. CV: Denies palpitations and CP GI: Denies abdominal pain, nausea, vomiting and diarrhea. : Denies dysuria and urinary frequency. MSK: Denies new myalgia and joint pain. SKIN: Denies rash and pruritus. NEUROLOGICAL: Denies headache PSYCHIATRIC: Denies recent changes in mood. PHYSICAL EXAM: GENERAL: Alert and oriented x 3. NAD EYES: EOMI. Anicteric. HENT: Moist mucous membranes. No scleral icterus. No cervical lymphadenopathy. LUNGS: Clear to auscultation bilaterally. CARDIOVASCULAR: Regular rate and rhythm. +murmur ABDOMEN: Soft, non-tender +bs EXTREMITIES: No edema. Non-tender. SKIN: No rashes or lesions. Warm. NEUROLOGIC: No focal neurological deficits. CN II-XII grossly intact PSYCHIATRIC: Cooperative. Appropriate mood and affect [facility] Medical History Uncontrolled type 2 diabetes mellitus with hyperglycemia Surgical History Hx of inguinal hernia surgery Family History Mother Diabetes High blood pressure Arthritis Heart problem Social History Household Members: Children Household Members Other:: 3 daughters, caregiver Alcohol intake: current Alcohol intake frequency: holidays/special occasions only Patient Tobacco Use Status: Former Tobacco user Current occupational status: disabled Current occupation: rt hand Physical Exam Vital Signs: Last Vital Signs Pulse 72 08/11/24 13:33 BP 122/66 08/11/24 13:33 BMI result Body Mass Index 39.1 Results AMB Hemoglobin A1c AMB Hemoglobin A1c 8.8 % Last Edit by JASON Pate on 08/11/24 13:49 Results Reviewed Results Reviewed: Laboratory Last Values Glucose (Clinic) 125 mg/dL (60-115) H 08/11/24 13:38 Assessment & Plan Assessment & Plan (1) Uncontrolled type 2 diabetes mellitus with hyperglycemia: Code(s): E11.65 - Type 2 diabetes mellitus with hyperglycemia Category: Medical Plan: Uncontrolled A1C has increased to 8.8% over the holidays. Will stop metformin due to GI SE. She will increase lantus to 60u and start taking in am b/c sporadically missing evening dose Increase ozempic to 2mg Referred to diabetic education-seems like she is not understanding usagle of her sayda system though she has had some limited success in the past. She will return in six weeks or sooner as needed Orders: Orders AMB Hemoglobin A1c Today E11.65 - Type 2 diabetes mellitus with hyperglycemia Referrals Diabetes Education Referral E11.65 - Type 2 diabetes mellitus with hyperglycemia Medications: New semaglutide (Ozempic) 2 mg (0.75 mL) subcut QWEEK 3 mL 0RF blood-glucose sensor (FreeStyle Sayda 3 Sensor device) As directed 6 ea 3RF Changed From insulin glargine (Lantus Solostar U-100 Insulin) 50 units (0.5 mL) subcut QPM 45 mL 3RF To insulin glargine (Lantus Solostar U-100 Insulin) 60 units (0.6 mL) subcut QPM 45 mL 3RF Coding Level of Care Code Est Pt Level 4 (52721) Diagnoses Uncontrolled type 2 diabetes mellitus with hyperglycemia E11.65
[2024-08-11 13:33] VITALS: BP 122/66; PULSE 72; BMI 39.1
[2024-08-11 13:42] LABS: Glucose, Whole Blood 125 mg/dL (60-115)
--- OUTSIDE RECORDS SUMMARY | 2024-08-11 15:44 | XMS_ITS | Continuity of Care Document ---
Author Organization [facility] Address [address] [place] [address] Phone Care Team Providers Care [employer] Field Technician Name Role Phone Z-Converted, Provider Unavailable Unavailabl e Advance Directives Directive Yes / No Effective Date File Name No Information Encounters Encounter Description Practice Location Reason(s) For Visit Diagnoses Date Provider Providers Copied on Encounter Luis Cornelius [facility], [address] [place] [address] 2,[address], [place], [place], [id number], [place] tel:[phone] [facility] [place] Routine general medical examination at a health care facility 6 Z-Convert ed Provider. . Family History Family Member Type Diagnosis Age At Onset No Information Payers Payer name Insurance type Covered libertarian ID Authoriza tion(s) No Information Social History Type Description Quantity Date Captured Comments Sex Female Smoking Status No Information Chief Complaint And Reason For Visit No Information Reason For Referral Reason For Referral No Information History Of Present Illness Encounter Date Complaint History Of Prese nt Illness No Information Functional Status Date Functional Assessmen t No Information Instructions Date Instruction Additional Infor mation No Information Assessments Type Assessment Date No Information Patient Care Teams Name Effective Dates (start - stop) Status Members No Information
== END 2024-08-11 13:53 | disposition home or self-care (01) ==
PROVIDERS: PCP Internal Medicine; Visit Provider Internal Medicine
DX: E11.65 Type 2 diabetes mellitus with hyperglycemia (principal)

== ENCOUNTER → 2024-08-11 13:10 | Outpatient (BNVA) | payer MEDICAID, SELFPAY | PROVIDERS: PCP Internal Medicine; Visit Provider Internal Medicine | DX: E11.65 Type 2 diabetes mellitus with hyperglycemia (principal); Z79.4 Long term (current) use of insulin; Z79.899 Other long term (current) drug therapy; Z79.84 Long term (current) use of oral hypoglycemic drugs | CPT/HCPCS: 82947; 83036; 99212 ==

== ENCOUNTER → 2024-08-12 13:28 | Outpatient (REF) | payer MEDICAID, SELFPAY ==
--- NOTE | 2024-08-12 13:33 | CA_ITS ---
Transthoracic Echocardiogram Patient (Last, First, Middle): Claudine Larson, Gender: Female Date of : 1970 Age: 54 Procedure Date: 08/12/2024 Procedure Type: Transthoracic Echocardiogram Location: OP Height: 154.94 cm Weight: 97.07 kg BSA: 1.94 m2 Heart Rate: 57 bpm BP: 120 / 80 mmHg Head Of Loss Prevention: JARVIS Angel MD: Ellen Collier MD Desizing Machine Operator Head End: Kwabena Brady MD Symptoms: R01.1 SYSTOLIC MURMUR Study Quality: Adequate ECG Rhythm: Bradycardia Conclusions: - 1. Normal LV ejection fraction of 60 65% 2. Mild fibrocalcific aortic valve changes noted with normal cardiac valvular Dopplers 3. No gross bradycardia effusion Findings Left Ventricle Normal left ventricular size and systolic function. There is mildly increased left ventricular wall thickness. The visually estimated ejection fraction is between 60-65%. Spectral Doppler is indicative of a normal filling pattern. Right Ventricle Normal right ventricular cavity size and systolic function. Atria The left atrium is likely dilated. There is no evidence of interatrial shunt. The right atrium is normal in size. Aortic Valve There is mild calcification of the aortic valve. There is no aortic valve stenosis. There is no aortic valve regurgitation. Mitral Valve There is mild anterior and posterior mitral leaflet thickening. There is trace mitral valve regurgitation. There is no mitral valve stenosis. Pulmonic Valve The pulmonic valve was not well visualized. Tricuspid Valve Likely normal tricuspid valve structure and function. Tricuspid regurgitation envelope is inadequate for calculation of right ventricular systolic pressure. Normal right atrial pressure. Great Vessels All visible segments of the aorta are normal in size. The pulmonary artery was not well visualized. There is no dilatation of the ascending aorta measuring 3.20 cm. Venous The inferior vena cava is normal in size and collapses greater than 50% with inspiration. Pericardium/Pleural There is no evidence of pericardial effusion. Prior Study Comparison No prior study available for comparison. Measurements 2D Linear Measurements IVSd: 1.25 0.6-0.9/0.6-1.0 cm LVIDd: 4.62 3.9-5.3/4.2-5.9 cm LVIDd Index: 2.38 2.4-3.2/2.2-3.1 cm/m2 LVIDs: 2.70 2.0-3.6 cm LVPWd: 1.12 0.7-1.1 cm LA Diam: 4.00 2.7-3.8/3.0-4.0 cm LAIDs Index: 2.06 1.5-2.3 cm/m2 LV Mass: 252.64 67-162/88-224 g LV Mass Index: 130.23 43-95/49-115 g/m2 LVOT Diam: 2.10 3.0+(-)1.3 cm 2D Systolic Function EF 4C: 64.20 >55% EF 2C: 66.00 >55% EF BiP: 64.70 >55% Mitral Valve MV Pk E: 0.70 MV PK A: 0.59 MV Decel Time: 319.00 E/A: 1.20 E'Lateral: 8.92 E'Medial: 6.96 E/E' Med: 10.00 E/E' Lat: 7.80 PHT: 93.00 MVA PHT: 2.37 Decel [place]: 2.19 Aortic Valve AoV Pk Baldemar: 1.80 AoV Mn [place]: 1.19 AoV VTI: 0.37 AoV Pk Grad: 13.00 Aov Mn Grad: 7.00 ALICIA Cont.VTI: 2.41 LVOT LVOT Pk [place]: 1.16 LVOT Mn [place]: 0.83 LVOT VTI: 0.25 LVOT Pk Grad: 5.00 LVOT Mn Grad: 3.00 LVOT Diam: 2.10 LVOT Area: 3.46 Diastolic Function MV Pk E: 0.70 MV Pk A: 0.59 E/A: 1.20 E'Medial: 6.96 E/E' Med: 10.00 E' Laterial: 8.92 E/E' Lat: 7.80 Right Ventricle TAPSE (mm): 21.70 TVS' Baldemar: 13.50 Great Vessels Aorta Sinus of Valsalva: 3.10 2.0-3.5 cm Ao Asc: 3.20 2.1-3.4 cm Pulmonary Valve PV Pk Baldemar: 1.22 Peak PV Grad: 6.00 Updated in Other Vendor System with Status of Final Kwabena Brady MD electronically signed on 08/13/2024 8:43:22 AM with status of Final
== END ==
LOC: HO.CARD 13:28
PROVIDERS: PCP Internal Medicine; Visit Provider Internal Medicine
DX: R01.1 Cardiac murmur, unspecified (principal)
CPT/HCPCS: 93306

== ENCOUNTER → 2024-08-12 13:33 | Outpatient (BNV) | payer MEDICAID, SELFPAY | PROVIDERS: PCP Internal Medicine; Visit Provider Internal Medicine Cardiovascular Disease | DX: I35.8 Other nonrheumatic aortic valve disorders (principal); R01.1 Cardiac murmur, unspecified | CPT/HCPCS: 93306 ==

== ENCOUNTER 2024-08-25 13:48 | Outpatient (AMB) | payer MEDICAID, SELFPAY ==
--- NOTE | 2024-08-25 14:18 | A.OFFVIS_ITS ---
Intake Intake Visit Reasons: DM Information Technology Technician Required: No Accompanied by: Self / Same As Patient Allergies No Known Allergies Allergy (Verified 08/11/24 13:39) HPI Comprehensive Diabetes Asmnt Most Recent Diabetes Results: Microalb/Creat Ratio 9.1 ug/mg cr (<30) 05/18/24 Cholesterol 161 mg/dL (<200) 05/18/24 HDL Cholesterol 49 mg/dL (>40) 05/18/24 Triglycerides 201 mg/dL (<150) H 05/18/24 Creatinine 0.75 mg/dL (0.5-1.4) 05/18/24 Blood Urea Nitrogen 14 mg/dL (9-16) 05/18/24 Sodium 141 mmol/L (135-145) 05/18/24 Potassium 4.2 mmol/L (3.3-5.1) 05/18/24 Chloride 106 mmol/L (96-108) 05/18/24 Carbon Dioxide 27 mmol/L (22-29) 05/18/24 Calcium 9.8 mg/dL (8.4-10.2) 05/18/24 AST 28 U/L (5-31) 05/18/24 ALT 18 U/L (0-31) 05/18/24 Total Protein 6.9 g/dL (6.5-8.0) 05/18/24 Albumin 4.1 g/dL (3.5-5.0) 05/18/24 PFSH Medical History Uncontrolled type 2 diabetes mellitus with hyperglycemia Surgical History Hx of inguinal hernia surgery Family History Mother Diabetes High blood pressure Arthritis Heart problem Social History Household Members: Children Household Members Other:: 3 daughters, caregiver Alcohol intake: current Alcohol intake frequency: holidays/special occasions only Patient Tobacco Use Status: Former Tobacco user Current occupational status: disabled Current occupation: rt hand Assessment & Plan Assessment & Plan (1) Uncontrolled type 2 diabetes mellitus with hyperglycemia: Code(s): E11.65 - Type 2 diabetes mellitus with hyperglycemia Plan: Insulin/Incretin?Mimetic Education visit Patient Education: Patient on Lantus 60 units daily, Ozempic 2 mg weekly Patient stated at visit that she was not sure she was using medication correctly Patient was instructed and provided with demonstration of the following: Insulin action and Incretin Mimetics medication storage how to set up medication pen/or syringe and vial Handwashing insulin injection site rotation Site rotation recognizing hypertrophy Testing blood glucose Removing and disposing needle from insulin pen Safe disposal of sharps Target blood sugar Signs/ symptoms/treatment of hypoglycemia/hyperglycemia expiration of open insulin pen Patient verbalized understanding of education provided and was able to dem onstrate proper use of inject into injection pillow Reviewed rule of 15s to treat glucose under 70 mg/dL All questions were answered and patient was advised to contact the office with any questions or concerns. Patient at visit to set up an insert Sayda 3 with Sayda 3 reader Instructed patient sensors water proof you can shower, or swim do not submerge sensor in water for over 30 minutes Is sensor falls off cannot put back in you need to replace sensor, customer service number given to patient for sensor replacement Sensor placed on the back of left arm Patient left visit with sensor in warmup Reviewed how to interpret trend arrows Reminded patient that to check finger sticks if symptoms do not match sensor reading. Discussed lag time between finger stick and sensor data.? Instructed patient she should always keep blood glucometer for backup testing if needed Reviewed delay of CGM from fingersticks Reminded pt that if symptoms do not match sensor still needs to check fingersticks. Portions of this note were created using voice recognition software, please excuse any words or phrases that may have been misinterpreted. Patient Instructions: Patient instruction: CGM provides information on blood glucose control throughout the day, including hyperglycemia and hypoglycemia. ? Continue to monitor blood glucose as instructed. Follow nutrition guidelines provided. Report any discomfort promptly to health care provider. ?Stay well-hydrated. You can bathe ,shower, swim and exercise while wearing the glucose sensor. Do not submerge glucose sensor in water for more than 30 minutes. Instrucciones para el paciente: CGM proporciona informaci?n sobre el control de la glucosa en ramez a lo tali del d?a, incluidas la hiperglucemia y la hipoglucemia. Contin?e controlando la glucosa en ramez seg?n las instrucciones. Siga las pautas de nutrici?n proporcionadas. Informe cualquier molestia de inmediato al proveedor de atenci?n m?dica. Mantente eric hidratado. Puede ba?arse, ducharse, nadar y hacer ejercicio mientras usa el sensor de glucosa. No sumerja el sensor de glucosa en agua roman m?s de 30 minutos. Retire el sensor para matt resonancia magn?oralia o matt tomograf?a computarizada. Evite la m?quina de yecenia X en los aeropuertos: retire el sensor o solicite la varita Coding Level of Care Code Est Pt Level 1 (09152) Diagnoses Uncontrolled type 2 diabetes mellitus with hyperglycemia E11.65
--- OUTSIDE RECORDS SUMMARY | 2024-08-25 16:03 | XMS_ITS | Encounter Summary ---
Author Organization [employer] Address [address] [place] [address] Care Team Providers Care Aix System Administrator Name Role Phone Ellen Valladares MD Primary Care Provide r Reason for Visit * Reason Onset Date Comments PT1 03/04/2024 Encounter Details Date Type Department Care Team ([facility] st Contact Info) Description 03/04/2024 Telephone [facility] [address] [place], [place] [phone] Ellen Valladares MD [address] [place], [place] [phone] PT1 Social History Tobacco Use Types Packs/Day Years Used Date Smoking Tobacco: Never Smokeless Tobacco: Never Alcohol Use Standard Drinks/Week Comments Not Currently 0 (1 standard drink = 0.6 oz pur e alcohol) Depression Answer Date Recorded Patient Health Questionnaire-9 Score 0 08/16/2022 Housing Stability Answer Date Recorded What is your housing situation today? I have dylon ayers 08/22/[address] you li ve. Do you have problems with any of the following? Pests such as bugs, ants, or mice 08/22/2023 Food Insecurity Answer Date Recorded Within the past 12 months, y ou worried that your food would run out before you got money to buy more: Sometimes True 2023 Within the past 12 months,th e food you bought just didn't last and you didn't have enough money to get more: Sometimes True 08/22/2023 Transportation Answer Date Recorded In the past 12 months, has l ack of transportation kept you from medical appts, meetings, work or from getting things needed for daily living? Yes, it has kept me from non-medical meetings, work, or getting things that I need 08/22/2023 Utilities Answer Date Recorded In the past 12 months, has t he electric, gas, oil or water company threatened to shut off services in your home? No 08/22/2023 Depression Answer Date Recorded Patient Health Questionnaire-2 Score 0 08/16/2022 Comments Unknown Sex and Gender Information Value Date Recorded Sex Assigned at Female 05/27/2022 10:16 AM EDT Legal Sex Female 10:16 AM EDT Gender Identity Female 05/27/2022 10:16 AM EDT Sexual Orientation Straight 05/27/2022 10 :16 AM EDT documented as of this encounter Miscellaneous Notes * Telephone Encounter - Cisco Young - 03/04/2024 12:57 PM EDT Patient calling requesting PT1 Home Address verified: Y/N: Yes Provider name or facility name: [facility] Facility Address: [address] [place] [address] Escort needed: Y/N: Yes Do you have a wheelchair: Y/N: No Visits: All Future Visits documented in this encounter Plan of Treatment Upcoming Encounters Date Type Department Care Team (Late st Contact Info) Description 09/07/2024 2:15 PM EST Procedure Visit [facility] [address] [place] [address] Lina Danielle CNM [address] [place] [phone] documented as of this encounter Visit Diagnoses Not on filedocumented in this encounter Additional Health Concerns Assessment Noted Time PHQ-9 Depression Total Score: 0 08/16/19 23 10:02 AM EST documented as of this encounter Care Teams [employer]ix System Administrator Relationship Specialty Start Date End Date Ellen Valladares MD [address] [place] [id number] PCP - General Family Medicine 10/03/21 documented as of this encounter
--- OUTSIDE RECORDS SUMMARY | 2024-08-25 16:03 | XMS_ITS | Encounter Summary ---
Author Organization [employer] Address [address] [facility] [address] [place] [address] Care Team Providers Care Editing Computer Publisher Name Role Phone Ellen Valladares MD Primary Care Provide r Reason for Visit * Reason Onset Date Comments rs appt/no show 05/17/2024 Encounter Details Date Type Department Care Team ([facility] Contact Info) Description 05/17/2024 Telephone [facility] [address] [place] [address] Araceli Chua, ESTHELA [address] [place] [address] rs appt/no show Social History Tobacco Use Types Packs/Day Years Used Date Smoking Tobacco: Never Smokeless Tobacco: Never Alcohol Use Standard Drinks/Week Comments Not Currently 0 (1 standard drink = 0.6 oz pur e alcohol) Depression Answer Date Recorded Patient Health Questionnaire-9 Score 9 05/18/2024 Patient Health Questionnaire-9 Score 9 05/18/2024 Last PHQ-9: Questionnaire Data Not on file 1 Housing Stability Answer Date Recorded What is [...] Answer Date Recorded Patient Health Questionnaire-2 Score 2 05/18/2024 Comments Unknown Sex and Gender Information Value Date Recorded Sex Assigned at Female 05/27/2022 10:16 AM EDT Legal Sex Female 10:16 AM EDT Gender Identity Female 05/27/2022 10:16 AM EDT Sexual Orientation Straight 05/27/2022 10 :16 AM EDT documented as of this encounter Miscellaneous Notes * Telephone Encounter - Shirin Wright - 05/17/2024 9:34 AM EDT Patient called in looking to schedule appt for hoahaoism. Last appt 05/06 was a no show. Patient has been informed that she will get a call to rescheduled the appt directly from [facility] dental office [facility] documented in this encounter Plan of Treatment Upcoming Encounters Date Type Department Care Team (Late st Contact Info) Description 09/07/2024 2:15 PM EST Procedure Visit [facility] MED[facility]INE [address] [place] [address] Lina Danielle CNM [address] [place] [address] documented as of this encounter Visit Diagnoses Not on filedocumented in this encounter Additional Health Concerns Assessment Noted Time PHQ-9 Depression Total Score: 0 08/16/19 23 10:02 AM EST documented as of this encounter Care Teams Editing Computer Publisher Relationship Specialty Start Date End Date Ellen Valladares MD [address] [place] [address] PCP - General Family Medicine 10/03/21 documented as of this encounter
--- OUTSIDE RECORDS SUMMARY | 2024-08-25 16:03 | XMS_ITS | Encounter Summary ---
Author Organization [employer] Address [address] [facility] [address] [place] [address] Care Team Providers Care Golf Club Assembler Name Role Phone Ellen Valladares MD Primary Care Provide r Encounter Details Date Type Department Care Team (Late st Contact Info) Description 05/13/2024 Orders Only [facility] MEDICINE [address] [place], [place] [phone] ProviderLakeshia MD Social History Tobacco Use Types Packs/Day Years [...] AM EDT documented as of this encounter Plan of Treatment Upcoming Encounters Date Type Department Care Team (Late st Contact Info) Description 09/07/2024 2:15 PM EST Procedure Visit [facility] MEDICINE [address] [place], [place] [phone] Lina Danielle CNM [address] [place], [place] [phone] documented as of this encounter Procedures Procedure Name Priority Date/Time Associated Diagnosis Comments HM PAP/HPV Routine 10/06/2019 1:37 PM EDT documented in this encounter Results * HM PAP/HPV (10/06/2019 1:37 PM EDT) us Historical Provider HEALTH MAINTENANCE Final Result documented in this encounter Visit Diagnoses Not on filedocumented in this encounter Additional Health Concerns Assessment Noted Time PHQ-9 Depression Total Score: 0 08/16/19 23 10:02 AM EST documented as of this encounter Care Teams Golf Club Assembler Relationship Specialty Start Date End Date Ellen Valladares MD [address] [place] [address] PCP - General Family Medicine 10/03/21 documented as of this encounter
--- OUTSIDE RECORDS SUMMARY | 2024-08-25 16:03 | XMS_ITS | Continuity of Care Document ---
Author Organization [employer] [facility] Address [address] [facility] [address] [place] [address] Phone Care Team Providers Care Setup Operator Name Role Phone Z-Converted, Provider Unavailable Unavailabl e Advance Directives Directive Yes / No Effective Date File Name No Information Encounters Encounter Description Practice Location Reason(s) For Visit Diagnoses Date Provider Providers Copied on Encounter Luis Cornelius [facility], [address] [place] [address],[address], [place], [place], [id number], [place] tel:[phone] Routine general medical examination at a health care facility 6 Z-Convert ed Provider. . Family History Family Member Type Diagnosis Age At Onset No Information Payers Payer name Insurance type Covered alliance party ID Authoriza tion(s) No Information Social History [...]
--- OUTSIDE RECORDS SUMMARY | 2024-08-25 16:04 | XMS_ITS | Clinical Summary ---
Author Organization [employer] Address [address] [facility] [address] [place] [address] Care Team Providers Care Landscape Horticulture Instructor Name Role Phone Ellen Valladares MD Primary Care Provide r Allergies No known active allergies Medications clonazePAM (KlonoPIN) 0.5 MG tablet TAKE 1/2 TO 1 TABLET BY MOUTH DAILY NEEDED FOR PANIC ATTACK. TO LAST 28 DAYS 08/11/19 23 Active glucagon (Baqsimi One Pack) 3 MG/DOSE nasal powder Administer 1 spray into affected nostril(s). Active ibuprofen 600 MG tablet TAKE 1 TABLET BY MOUTH THREE TIMES A DAY NEEDED FOR PAIN 05/09/20 22 Active B Complex Vitamins (vitamin B complex) tabletIndication s:Vitamin B12 deficiency Take 1 tablet by mouth in the morning. 90 tablet 3 08/19/19 23 Active Alcohol Swabs (Alcohol Pads) 70 % padsIndications: Type 2 diabetes mellitus with other specified complication, with long-term current use of insulin ([facility]) See Instructions, # 1 box, Refills 1, Tot. Refills 1, Maintenance, Diagnosis: 11.9 Length of need: 99 months, 03/12/17 17:46:25, Compound 100 each 08/19/19 23 Active cholecalciferol (Vitamin D-3) 50 MCG (1999 [place]) capsuleIndicatio ns:Vitamin D deficiency take 1 capsule by Oral route every day 90 capsule 3 08/19/19 23 Active Continuous Blood Gluc Immigration Investigator (FreeStyle Sayda 14 Day [place]) deviceIndication s:Type 2 diabetes mellitus with other specified complication, with long-term current use of insulin (CMS/HCC) Place 1 Device on the skin every 14 (fourteen) days. 4 each 08/19/19 Active Continuous Blood Gluc Sensor (FreeStyle Sayda 2 Sensor) miscIndications: Type 2 diabetes mellitus with other specified complication, with long-term current use of insulin ([facility]) DIRECTED 4 each 08/19/19 Active glucose blood (FreeStyle Precision Rony Test) test stripIndications :Type 2 diabetes mellitus with other specified complication, with long-term current use of insulin ([facility]) Use to test BG with Freestyle Sayda when prompted 1-2X/D UD Dx. E11.65 Freestyle Rony Strips 100 each 08/19/19 Active Melatonin ER 10 MG tablet controlled-relea seIndications:Mi xed anxiety and depressive disorder TAKE 1 TABLET BY MOUTH EVERY DAY AT BEDTIME NEEDED FOR SLEEP *NOT COVERED* 90 tablet 08/19/19 Active metFORMIN (Glucophage) 1000 MG tabletIndication s:Type 2 diabetes mellitus with other specified complication, with long-term current use of insulin ([facility]) Take 1 tablet (1,000 mg) by mouth 2 times daily. 180 tablet 08/19/19 Active oxybutynin (Ditropan) 5 MG tabletIndication s:Mixed stress and urge urinary incontinence Take 1 tablet (5 mg) by mouth 2 times daily. 180 tablet 08/19/19 Active sodium chloride ([place] Nasal [place]) 0.65 % nasal sprayIndications :Viral URI 1-2 sprays on each nostril every 2-3 hours as needed for nasal congestion 30 mL 1 09/18/19 Active Blood Pressure kitIndications:E ssential hypertension 1 kit in the morning. 1 kit 10/15/19 Active cyanocobalamin (Vitamin B-12) 100 MCG tabletIndication s:Vitamin B12 deficiency take one daily 90 tablet 1 04/16/20 Active semaglutide (Ozempic) 2 MG/1.5ML solution pen-injectorIndi cations:Type 2 diabetes mellitus with hyperglycemia, with long-term current use of insulin ([facility]) Inject 0.5 mg under the skin 1 (one) time per week. 4 each 3 09/03/19 Active Lantus SoloStar 100 UNIT/ML penIndications:T ype 2 diabetes mellitus with other specified complication, with long-term current use of insulin ([facility]) INJECT 50 UNITS SUBCUTANEOUSLY EVERY EVENING 3 mL 11 10/31/19 Active insulin pen needle (BD Pen Needle Janeen 2nd Gen) 32G x 4 mm miscIndications: Type 2 diabetes mellitus with other specified complication, with long-term current use of insulin ([facility]) USE DIRECTED DAILY 100 each 3 12/26/19 24 Active acetaminophen (Tylenol 8 Hour) 650 MG ER tabletIndication s:Polyarthralgia Take 2 tablets (1,300 mg) by mouth every 8 (eight) hours if needed for mild pain. Do not crush, chew, or split. 30 tablet 1 05/18/20 24 Active Aspirin Low Dose 81 MG EC tabletIndication s:Type 2 diabetes mellitus with other specified complication, with long-term current use of insulin ([facility]) Take 1 tablet (81 mg) by mouth Once per day. 90 tablet 3 05/18/20 24 Active atorvastatin (Lipitor) 20 MG tabletIndication s:Dyslipidemia Take 1 tablet (20 mg) by mouth Once per day. 90 tablet 3 05/18/20 24 025 Active buPROPion XL (Wellbutrin XL) 150 MG 24 hr tabletIndication s:Mixed anxiety and depressive disorder Take 1 tablet (150 mg) by mouth Once per day. 90 tablet 3 05/18/20 24 Active FLUoxetine (PROzac) 20 MG capsuleIndicatio ns:Mixed anxiety and depressive disorder Take 1 capsule (20 mg) by mouth in the morning. 90 capsule 3 05/18/20 24 Active hydroCHLOROthiaz guillermo (HYDRODiuril) 25 MG tabletIndication s:Essential hypertension Take 1 tablet (25 mg) by mouth Once per day. 30 tablet 11 05/18/20 24 025 Active hydrOXYzine HCl (Atarax) 50 MG tabletIndication s:Mixed anxiety and depressive disorder Take 1 tablet (50 mg) by mouth 2 times daily. 30 tablet 1 05/18/20 24 Active Active Problems Problem Noted Date Diagnosed Date Tuberculosis screening 05/18/2024 Screening examination for STI 05/18/2024 Polyarthralgia 05/18/2024 Systolic murmur 05/18/2024 Assessment & Plan (05/18/2024 3:52 PM EDT): Echocardiogram ordered Onycholysis 01/12/2024 Encounter for preventive health examination 01/2024 Assessment & Plan (09/03/2023 10:26 AM EST): See HPI Dyslipidemia 07/08/2023 Assessment & Plan (07/08/2023 11:50 AM EST): Today extensive discussion was done about life style modifications I advise healthy diet (low calorie) and cardiovascular exercise Abnormal cervical Papanicolaou smear 08/16/2022 Morbid obesity 08/16/2022 Type 2 diabetes mellitus 08/16/2022 Assessment & Plan (05/18/2024 3:53 PM EDT): Continue to follow with endocrinology Assessment & Plan (09/03/2023 10:25 AM EST): - Lab Results Component Value Date HGBA1C 7.9 (A) 09/03/2023 HGBA1C 8.9 (A) 06/09/2023 HGBA1C 8.0 (A) 11/19/2022 - Lab Results Component Value Date MICROALBUR 12.0 06/09/2023 CREATININE 0.81 06/09/2023 - Diabetic eye exam:patient will set up her appointment - Diabetic foot exam:pending - Continue lifestyle modifications -I increase ozempic to 0.5mg weekly A1c not at goal, c/w rest of medications RTC 3 months Assessment & Plan (07/08/2023 11:50 AM EST): Will start ozempic tomorrow diabetic shoes status will be check Assessment & Plan (06/09/2023 12:18 PM EST): - Lab Results Component Value Date HGBA1C 8.9 (A) 06/09/2023 HGBA1C 8.0 (A) 11/19/2022 - Lab Results Component Value Date MICROALBUR 24.0 02/03/2023 - Diabetic eye exam: up to date - Diabetic foot exam:pending - Continue lifestyle modifications - Today I discontinue Trulicity and I started patient on ozempic, c/w insulin metformin, it is my medical opinion patient will benefit form this new medication in light of A1c 8.9 already on insulin, she will benefit also form weight loss BMI 40, I am trying to avoid surgical measures - Foot pain 08/14/2022 Varicose veins 08/14/2022 Vascular insufficiency 08/14/2022 Assessment & Plan (07/08/2023 11:49 AM EST): Compression stocking status will be check Assessment & Plan (06/09/2023 12:14 PM EST): Compression stocking will be prescribe Continue to follow with specialist new referral will be in Osteoarthritis of both knees 05/03/2021 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 Initial goal of 30 min walk 3-5x/week. Increase as tolerated. - low-sodium diet (goal: <2g/day) and heart healthy diet such as DASH to reduce BP and prevent ASCVD. - Home BP monitoring 1-2 x day with goal of <140/90. - Seek immediate medical attention for chest pain, palpitations, SOB, syncope, or sudden changes in mental status. - Do not change or discontinue current prescriptions without first consulting health care provider Assessment & Plan (09/03/2023 10:24 AM EST): Maintenance: BMP: up to date Lipid Panel: up to date ASCVD Risk: on atorvastatin 20mg daily and ASA 81mg daily -I increase her blood pressure medication hydrochlorothiazide from 12.5mg to 25mg I Advise: - Aerobic exercise to reduce BP. Initial goal of 30 min walk 3-5x/week. Increase as tolerated. - low-sodium diet (goal: <2g/day) and heart healthy diet such as DASH to reduce BP and prevent ASCVD. - Home BP monitoring 1-2 x day with goal of <140/90. - Seek immediate medical attention for chest pain, palpitations, SOB, syncope, or sudden changes in mental status. - Do not change or discontinue current prescriptions without first consulting health care provider Assessment & Plan (06/09/2023 12:15 PM EST): Maintenance: BMP: ordered Lipid Panel: ordered ASCVD Risk:pending - Aerobic exercise to reduce BP. Initial goal of 30 min walk 3-5x/week. Increase as tolerated. - low-sodium diet (goal: <2g/day) and heart healthy diet such as DASH to reduce BP and prevent ASCVD. - Home BP monitoring 1-2 x day with goal of <140/90. - Seek immediate medical attention for chest pain, palpitations, SOB, syncope, or sudden changes in mental status. - Do not change or discontinue current prescriptions without first consulting health care provider Calcaneal spur of right foot 01/02/2015 Overview (08/16/2022): 12/28/14 at [facility] [place]: Xray of R foot shows no acute abnormality. Xray of ankle shows Small heel spur noted, in typical location, at site of insertion of plantar aponeurosis. Chronic bilateral low back pain 01/02/2015 Peripheral edema 12/08/2014 Mixed anxiety and depressive disorder 08/27/2012 Vitamin D deficiency 12/25/2011 Encounters Date Type Department Care Team Description 08/19/[address] [address] Mansoor Sampson [place] Appointment Request 08/18/2024 Telephone [facility] [address] [place] [address] Ellen Valladares MD Appointment Request 08/18/2024 Telephone [facility] [address] [place] [address] Ellen Valladares MD Results 08/11/2024 Orders Only GENERIC EXTERNAL DATA DEPARTMENT Provider, Generic External Data 08/04/2024 Telephone [facility] [address] [place] [address] Ellne Valladares MD Referral 07/22/2024 Telephone [facility] [address] [place] [address] Ellen Valladares MD 07/15/2024 Telephone [facility] [address] [facility] [place] [address] Cheryl Wall cx rs appt 07/08/2024 Telephone [facility] [address] [place] [address] Mansoor Sampson MA 07/05/[address] [place] [address] Ellen Valladares MD callback requested; PT-1 (A PT-1 [id number] has been submitted on your behalf through the [employer] Portal (MicroTransponder). (Cardiology)/A PT-1 [id number] has been submitted on your behalf through the [employer] Portal (MicroTransponder). ([facility])) 06/29/[address] [place] [address] Ellen Valladares MD Appointment Request 06/17/[address] [address] Ellen Valladares MD No Show 05/26/[address] [phone] Danuta Vasquez, RN Results 05/26/2024 Orders Only [address] [phone] Ellen Valladares MD Positive HORACE (antinuclear antibody) (Primary Dx); Polyarthralgia 05/26/[address] [phone] Ellen Valladares MD from Last 3 Months Immunizations Name Administration Dates Next Due Hep B, adult 05/14/2016,12/19/2015,10/17/2015 Influenza injectable quadriv alent preservative free 09/03/2023,08/16/2022,04/26/2021 Influenza, IIV3, injectable 06/05/2018,1 ,05/11/2015,05/06 Influenza, seasonal, injecta ble, preservative free 05/18/2024 Pneumococcal Conjugate PCV 13 12/19/2015 Pneumococcal Polysaccharide PPSV23 03/07/2020 Tdap 11/19/2018,01/20/2013 Zoster, Recombinant 03/07/2020 Social History Tobacco Use Types Packs/Day Years Used Date Smoking Tobacco: Never Passive Smoke Exposure: Never Smokeless Tobacco: Never Tobacco Cessation:Counseling Given: Not Answered Alcohol Use Standard Drinks/Week Comments Not Currently [...] Orientation Straight 05/27/2022 10 :16 AM EDT Last Filed Vital Signs Vital Sign Reading Time Taken Comments Blood Pressure 129/78 05/18/2024 2:14 PM EDT Pulse 72 05/18/2024 2:14 PM EDT Temperature 36.8 ??C (98.2 ??F) 05/18/2024 2:14 PM ED T Respiratory Rate 16 05/18/2024 2:14 PM EDT Oxygen Saturation 97% 05/18/2024 2:14 PM EDT Inhaled Oxygen Concentration - - Weight 99.8 kg (220 lb) 05/18/2024 2:14 PM EDT Height 154.9 cm (5' 1 ) 05/18/2024 2:14 PM EDT Body Mass Index 41.57 05/18/2024 2:14 PM EDT Plan of Treatment Upcoming Encounters Date Type Department Care Team (Late st Contact Info) Description 09/07/2024 2:15 PM EST Procedure Visit [facility] [address] [place], [place] [phone] Lina Danielle, CHELY [address] [place] [address] Health Maintenance Due Date Last Done Comments CT Colonography 1968 Colonoscopy 1968 Colorectal Cancer Screening 1968 FIT DNA/Cologuard 1968 FIT 1968 FOBT 1968 Sigmoidoscopy 1968 Diabetes: Foot Exam 02/03/1978 Eye Exam 02/03/1978 Alcohol/Substance Use Screening 1980 Mammogram 2008 Zoster Vaccines (2 of 2) 05/02/2020 03/07/2020 Dental Oral Exam 10/25/2022 04/26/2022 Dental Prophylaxis 11/19/2022 05/20/2022 COVID-19 Vaccine ( season) 2024 Dental X-Ray: Bitewings 05/10/2024 05/09/2023, 04/26 Diabetes: Hemoglobin A1C 08/18/2024 024, 09/03/2023, 06/09/2023, Additional history exists SDOH Screening 08/22/2024 08/22/2023 Cervical Cancer Screening 10/05/2024 HPV/Cotest 10/05/2024 Pap Smear 10/05/2024 10/06/2019 Depression Monitoring (PHQ-9) 11/16/2024 05/18/2024, 05/18/2024 Dental X-Ray: Full Mouth 04/27/2025 04/26/2022 Depression Screening 05/18/2025 05/18/2024, 05/18/20 Diabetes: Urine Protein Screening 05/18/2025 05/18/2024, 06/09/2023, 02/03/2023, Additional history exists Lipid Panel 05/18/2025 05/18/2024, 05/28, 02/03/2023, Additional history exists Tobacco Screening 05/18/2025 05/18/2024 DTaP/Tdap/Td Vaccines (3 - Td or Tdap) 11/19/2028 11/19/2018, 01/20/2013 Pneumococcal Vaccine: Pediatrics (0 to 5 Years) and At-Risk Patients (6 to 49) Years) (3 of 3 - PPSV23 or PCV20) 02/03/2033 03/07/2020, 12/19/2015 RSV Patients and Patients Aged 60 years or older (1 - 1-dose 75+ series) 02/03/2043 Hepatitis B Vaccines Completed 05/14/2016, 12/19/2015, 10/17/2015 HIV Screening Completed 05/18/2024, 05/28, 08/16/2022, Additional history exists Hepatitis C Screening Completed 05/18/2024 , 06/09/2023, 08/16/2022, Additional history exists Influenza Vaccine Completed 05/18/2024, , 08/16/2022, Additional history exists HIB Vaccines Aged Out No longer eligi ble based on patient's age to complete this topic HPV Vaccines Aged Out No longer eligi ble based on patient's age to complete this topic Hepatitis A Vaccines Aged Out No long er eligible based on patient's age to complete this topic IPV Vaccines Aged Out No longer eligi ble based on patient's age to complete this topic Meningococcal Vaccine Aged Out No stefanie randall eligible based on patient's age to complete this topic RSV under 20 months Aged Out No longe r eligible based on patient's age to complete this topic Rotavirus Vaccines Aged Out No longer eligible based on patient's age to complete this topic Procedures Procedure Name Priority Date/Time Associated Diagnosis Comments GLUCOSE, WHOLE BLOOD Routine 08/11/2024 1:38 PM EST HEPATITIS C AB W/REFL TO HCV RNA, QN, PCR Routine 05/18/2024 3:05 PM EDT Type 2 diabetes mellitus with hyperglycemia, with long-term current use of insulin ([facility]) Essential hypertension HIV 1/2 ANTIGEN/ANTIBODY, FOURTH GENERATION W/RFL Routine 05/18/2024 3:05 PM EDT Type 2 diabetes mellitus with hyperglycemia, with long-term current use of insulin ([facility]) Essential hypertension ALBUMIN, RANDOM URINE W/CREATININE Routine 05/18/2024 3:05 PM EDT Type 2 diabetes mellitus with hyperglycemia, with long-term current use of insulin ([facility]) LIPID PANEL, STANDARD Routine 05/18/2024 3:05 PM EDT Type 2 diabetes mellitus with hyperglycemia, with long-term current use of insulin ([facility]) Essential hypertension POCT GLYCATED HEMOGLOBIN, TOTAL Routine 05/18/2024 2:15 PM EDT Type 2 diabetes mellitus with hyperglycemia, with long-term current use of insulin ([facility]) BITEWING - SINGLE RADIOGRAPHIC IMAGE Routine 05/09/2023 1:00 PM EDT PROPHYLAXIS - ADULT Routine 05/20/2022 1 2:00 AM EDT DIAGNOSTIC - DIAGNOSTIC IMAGING - INTRAORAL - COMPREHENSIVE SERIES OF RADIOGRAPHIC IMAGES Routine 04/26/2022 12:00 AM EDT COMPREHENSIVE ORAL EVALUATION - NEW OR ESTABLISHED PATIENT Routine 04/26/2022 12:00 AM EDT HM PAP/HPV Routine 10/06/2019 1:37 PM EDT from Last 3 Months or Most Recently Relevant to Health Maintenance Results * (ABNORMAL) Glucose, Whole Blood (08/11/2024 1:38 PM EST) Glucose, Whole Blood 125(H) 60 - 115 mg/dL [facility] Comment:METER #: [id number] 5Testing performed in the Endocrinology Department [address], [address], [facility]. 08/11/2024 1:38 PM EST 08/11/2024 1:42 PM EST us Generic External Data Provider LAB BLOOD ORDERAB LES Final Result Performing Organization Address [facility] Co de Phone Number [facility] [address] [place] [address] [phone] * Albumin, Random Urine W/Creatinine (05/18/2024 3:05 PM EDT) Creatinine, Urine 120.83 mg/dL [facility] Microalbumin Urine 11.0 mg/L [facility] Microalbum Creatinine Ratio Ur 9.1 <30 ug/mg cr [facility] Comment:Albumin/Creatinine R atio Reference Ranges: Normal: < 30 ug/mg creatinine Microalbuminuria: 30 - 300 ug/mg creatinineClinical Albuminuria: > 300 ug/mg creatinine Urine (Urine, Random) 05/18/2024 3:05 PM EDT 05/18/2024 4:38 PM EDT us Ellen Collier MD LAB URINE ORDERABLES Final Result Performing Organization Address [facility] Co de Phone Number [facility] [address] [place] [phone] * Hepatitis C Antibody with Reflex to HCV, RNA, Quantitative, Real-Time PCR (05/18/2024 3:05 PM EDT) Hepatitis C Antibody Nonreactive Nonreactive [facility] Comment:Antibodies to HCV no t detected; does not exclude early acuteHCV infection. Blood Venous blood specimen / Unknown 05/18/2024 3:05 PM EDT 05/18/2024 4:36 PM EDT us Ellen Collier MD LAB BLOOD ORDERABLES Final Result Performing Organization Address [facility]/ZIP Co de Phone Number [facility] [address] [place] [address] [phone] * HIV-1/2 Antigen and Antibodies, Fourth Generation, with Reflexes (05/18/2024 3:05 PM EDT) HIV AB/AG Nonreactive Nonreactive [facility] Comment:HIV-1 p24 Ag and/or HIV-1/HIV-2 Ab not detected.A test result that is nonreactive does not exclude thepossibility of exposure to or infection with HIV-1 and/orHIV-2. Nonreactive results in this assay for individualswith prior exposure to HIV-1 and/or HIV-2 may be due toantigen and antibody levels that are below the limit ofdetection of this assay.The [employer] HIV Ag/Ab Combo assay result andsupplemental assay results should be interpreted inconjunction with the patient's clinical presentation,history and other laboratory results. If the results areinconsistent with clinical evidence, additional testing issuggested to confirm the result. Blood Venous blood specimen / Unknown 05/18/2024 3:05 PM EDT 05/18/2024 4:36 PM EDT us Ellen Collier MD LAB BLOOD ORDERABLES Final Result Performing Organization Address [facility]/ZIP Co de Phone Number [facility] [address] [place] [address] [phone] * (ABNORMAL) Lipid Panel, Standard (05/18/2024 3:05 PM EDT) Triglycerides 201(H) <150 mg/dL [facility] Comment:Desirable Triglyceri de: less than 150 mg/dLBorderline High Triglyceride 150-199 mg/dLHigh Triglyceride: 200-499 mg/dLVery High Triglyceride: greater than or equal to 5OO mg/dL Cholesterol 161 <200 mg/dL [facility] Comment:Desirable Cholestero l: less than 200 mg/dLBorderline High Cholesterol: 200-239 mg/dLHigh Cholesterol: greater than 239 mg/dL LDL Cholesterol Calculated 72 <100 mg/dL [facility] Comment:Desirable LDL: less than 100 mg/dLNear Optimal/Above Optimal LDL: 110- 129 mg/dLBorderline High LDL: 130-159 mg/dLHigh LDL: 160-189 mg/dLVery High LDL: greater than or equal to 190 mg/dL HDL Cholesterol 49 >40 mg/dL [facility] Comment:Desirable HDL: great er than 40 mg/dL Note: This HDL assay may give artificially low results in patients with liver disease. Blood Venous blood specimen / Unknown 05/18/2024 3:05 PM EDT 05/18/2024 4:36 PM EDT Ellen Collier MD LAB BLOOD ORDERABLES Final Result [facility] [address] [place] [phone] * (ABNORMAL) POCT HGB A1C (05/18/2024 2:15 PM EDT) Hemoglobin A1C 8.6(A) 4.0 - 6.0 % QC Media Lot # [id number] Lot# Expiration Date [id number] Blood 05/18/2024 2:15 PM EDT Ellen Collier MD POINT OF CARE TEST EN TER/EDIT ORDERABLES Final Result * HM PAP/HPV (10/06/2019 1:37 PM EDT) us Historical Provider HEALTH MAINTENANCE Final Result from Last 3 Months or Most Recently Relevant to Health Maintenance Insurance [facility] [place] ST[address] [place] [id number] Care Teams Landscape Horticulture Instructor Relationship Specialty Start Date End Date Ellen Valladares MD [address] [place] [phone] PCP - General Family Medicine 10/03/21
--- OUTSIDE RECORDS SUMMARY | 2024-08-25 16:04 | XMS_ITS | Encounter Summary ---
Author Organization [employer] Address [address] [facility] 7t [place] [address] Care Team Providers Care Box Toe Flanger Stitchdowns Name Role Phone Ellen Valladares MD Primary Care Provide r Reason for Visit * Reason Onset Date Comments Referral 08/04/2024 Encounter Details Date Type Department Care Team ([facility] st Contact Info) Description 08/04/2024 Telephone [facility] [address] [place], [place] [phone] Ellen Valladares MD [address] [place], [place] [phone] Referral Social History Tobacco Use Types Packs/Day Years Used Date Smoking Tobacco: Never Passive Smoke Exposure: Never Smokeless Tobacco: Never Alcohol Use Standard [...] encounter Miscellaneous Notes * Telephone Encounter - Anali Fernandes - 08/17/2024 1:34 PM EST Tc from pt requesting status on last message * Telephone Encounter - Jadon Larson - 08/04/2024 3:57 PM EST Tc from pt returning call , pt stated faxed was never received as she called facility in regards refferal * Telephone Encounter - Iraida Schultz RN - 08/04/2024 3:30 PM EST TC placed to patient [phone] to inform referral was re-faxed. Patient did not answer, RN left VM requesting CB to red team nurses. Patient to f/u PRN. * Telephone Encounter - Iraida Schultz RN - 08/04/2024 2:18 PM EST TC placed to patient [phone] in regards to below message. Patient reports she was referred to rheumatology on 05/26/24 and called [facility] at [phone] to inquire on her appointment. Patient reports the office told her they did not receive a referral and the referral needsto be re-faxed to [phone]. Patient is requesting a call from referral team once referral is re-faxed with confirmation. Thank you! * Telephone Encounter - Anali Fernandes - 08/04/2024 12:20 PM EST Tc from pt requesting a call back to go over referrals. documented in this encounter Plan of Treatment Upcoming Encounters Date Type Department Care Team (Late st Contact Info) Description 09/07/2024 2:15 PM EST Procedure Visit [facility] [address] [place] [address] Lina Danielle CNM [address] [place] [address] documented as of this encounter Visit Diagnoses Not on filedocumented in this encounter Additional Health Concerns Assessment Noted Time PHQ-9 Depression Total Score: 9 05/18/20 24 3:59 PM EDT documented as of this encounter Care Teams Box Toe Flanger Stitchdowns Relationship Specialty Start Date End Date Ellen Valladares MD [address] [place] [address] PCP - General Family Medicine 10/03/21 documented as of this encounter
--- OUTSIDE RECORDS SUMMARY | 2024-08-25 16:04 | XMS_ITS | Encounter Summary ---
Author Organization [email or web address] [facility] Address [address] [place] [address] 7t [place] [address] Care Team Providers Care Client Engagement Manager Name Role Phone Ellen Valladares MD Primary Care Provide r Reason for Visit * Reason Comments Med Refill Encounter Details Date Type Department Care Team (Late st Contact Info) Description 02/05/2023 Refill [facility] [address] [place] [address] [phone] Idalia Barnett MD [address] [place] [address] [phone] Type 2 diabetes mellitus with other specified complication, with long-term current use of insulin ([facility]) Social History Tobacco Use Types Packs/Day Years Used Date Smoking Tobacco: Never Smokeless Tobacco: Never Alcohol Use Standard Drinks/Week Comments Not Currently 0 (1 standard drink = 0.6 oz pur e alcohol) Depression Answer Date Recorded Patient Health Questionnaire-9 Score 0 08/16/2022 Depression Answer Date Recorded Patient Health Questionnaire-2 [...] Description 09/07/2024 2:15 PM EST Procedure Visit [facility] [address] [place], [place] [phone] Lina Danielle CNM [address] [place] [address] documented as of this encounter Visit Diagnoses Diagnosis Type 2 diabetes mellitus with other specified complication, with long-term current use of insulin ([facility]) documented in this encounter Additional Health Concerns Assessment Noted Time PHQ-9 Depression Total Score: 0 08/16/19 23 10:02 AM EST documented as of this encounter Care Teams Client Engagement Manager Relationship Specialty Start Date End Date Ellen Valladares MD [address] [place] [address] PCP - General Family Medicine 10/03/21 documented as of this encounter
--- OUTSIDE RECORDS SUMMARY | 2024-08-25 16:04 | XMS_ITS | Encounter Summary ---
Author Organization [employer] Address [address] [facility] 7t [place] [address] Care Team Providers Care Pole Cutter Name Role Phone Ellen Valladares MD Primary Care Provide r Reason for Visit * Reason Onset Date Comments Durable Medical Equipment 06/24/2023 Encounter Details Date Type Department Care Team ([facility] st Contact Info) Description 06/24/2023 Telephone [facility] [address] [place], [place] [phone] Ellen Valladares MD [address] [place] [address] Durable Medical Equipment Social History Tobacco Use Types Packs/Day Years Used Date Smoking Tobacco: Never Smokeless Tobacco: Never Alcohol Use Standard Drinks/Week Comments Not Currently 0 (1 standard drink = 0.6 oz pur e alcohol) Depression Answer Date Recorded Patient Health Questionnaire-9 Score 0 08/16/2022 Housing Stability Answer Date Recorded What is your housing situation today? I have dylon ayers 05/13/[address] you li ve. Do you have problems with any of the following? None of the above 05/13/2023 Food Insecurity Answer Date Recorded Within the past 12 months, y ou worried that your food would run out before you got money to buy more: Never True 05/13/2023 Within the past 12 months,th e food you bought just didn't last and you didn't have enough money to get more: Never True Transportation Answer Date Recorded In the past 12 months, has l ack of transportation kept you from medical appts, meetings, work or from getting things needed for daily living? No 05/13/2023 Utilities Answer Date Recorded In the past 12 months, has t he electric, gas, oil or water company threatened to shut off services in your home? No 05/13/2023 Depression Answer Date Recorded Patient Health Questionnaire-2 Score 0 08/16/2022 Comments Unknown Sex and Gender Information Value Date Recorded Sex Assigned at Female 05/27/2022 10:16 AM EDT Legal Sex Female 10:16 AM EDT Gender Identity Female 05/27/2022 10:16 AM EDT Sexual Orientation Straight 05/27/2022 10 :16 AM EDT documented as of this encounter Miscellaneous Notes * Telephone Encounter - Amy Parmar - 06/25/2023 8:51 AM EST [employer] * Telephone Encounter - Cedric Workman - 06/24/2023 11:35 AM EST Tc from pt requesting diabetic shoes and stockings. Cesar [address] [place] [address] documented in this encounter Plan of Treatment Upcoming Encounters Date Type Department Care Team (Late st Contact Info) Description 09/07/2024 2:15 PM EST Procedure Visit [facility] [address] [place] [address] Lina Danielle CNM [address] [place] [address] documented as of this encounter Visit Diagnoses Not on filedocumented in this encounter Additional Health Concerns Assessment Noted Time PHQ-9 Depression Total Score: 0 08/16/19 23 10:02 AM EST documented as of this encounter Care Teams Pole Cutter Relationship Specialty Start Date End Date Ellen Valladares MD [address] [place] [address] PCP - General Family Medicine 10/03/21 documented as of this encounter
--- OUTSIDE RECORDS SUMMARY | 2024-08-25 16:04 | XMS_ITS | Encounter Summary ---
Author Organization [employer] Address [address] [facility] 7t [place] [address] Care Team Providers Care Supervisor Riprap Placing Name Role Phone Ellen Valladares MD Primary Care Provide r Reason for Visit * Reason Onset Date Comments Appointment Request 08/18/2024 Encounter Details Date Type Department Care Team ([facility] Contact Info) Description 08/18/2024 Telephone [facility] MEDICINE [address] [place], [place] [phone] Ellen Valladares MD [address] [place] [address] Appointment Request Social History Tobacco Use Types Packs/Day Years [...] * Telephone Encounter - Anali Fernandes - 08/18/2024 1:37 PM EST Tc from pt requesting to r/s PAP appt due to not feeling well. documented in this encounter Plan of Treatment Upcoming Encounters Date Type Department Care Team (Late st Contact Info) Description 09/07/2024 2:15 PM EST Procedure Visit [facility] MEDICINE [address] [place] [address] Lina Danielle CNM [address] [place] [address] documented as of this encounter Visit Diagnoses Not on filedocumented in this encounter Additional Health Concerns Assessment Noted Time PHQ-9 Depression Total Score: 9 05/18/20 24 3:59 PM EDT documented as of this encounter Care Teams Supervisor Riprap Placing Relationship Specialty Start Date End Date Ellen Valladares MD [address] [place] [address] PCP - General Family Medicine 10/03/21 documented as of this encounter
--- OUTSIDE RECORDS SUMMARY | 2024-08-25 16:04 | XMS_ITS | Encounter Summary ---
Author Organization [employer] Address [address] [facility] 7t [place] [address] Care Team Providers Care Social Work Lecturer Name Role Phone Ellen Valladares MD Primary Care Provide r Encounter Details Date Type Department Care Team ([facility] st Contact Info) Description 11/19/2023 Telephone [facility] BUSINESS OFFICE [address] [place], [place] [phone] Ellen Valladares MD [address] [place], [place] [phone] Social History Tobacco Use Types Packs/Day Years Used Date Smoking Tobacco: Never Smokeless Tobacco: Never Alcohol Use Standard Drinks/Week Comments Not Currently 0 (1 standard drink = 0.6 oz pur e alcohol) Depression Answer Date Recorded Patient Health Questionnaire-9 Score 0 08/16/2022 Housing Stability Answer Date Recorded What is your housing situation today? I have dylon sing 08/22/[address] you li [...] encounter Miscellaneous Notes * Telephone Encounter - Donna Smith - 11/19/2023 12:45 PM EDT Safety and Incident Production Scheduler Donna Smith called and left message to patient requesting call back. Farm Equipment Maintenance Supervisor left contact information. documented in this encounter Plan of Treatment Upcoming Encounters Date Type Department Care Team (Late st Contact Info) Description 09/07/2024 2:15 PM EST Procedure Visit [facility] MEDICINE [address] [place], [place] [phone] Lina Danielle CNM [address] [place] [address] documented as of this encounter Visit Diagnoses Not on filedocumented in this encounter Additional Health Concerns Assessment Noted Time PHQ-9 Depression Total Score: 0 08/16/19 23 10:02 AM EST documented as of this encounter Care Teams Social Work Lecturer Relationship Specialty Start Date End Date Ellen Valladares MD [address] [place], [place] [phone] PCP - General Family Medicine 10/03/21 documented as of this encounter
--- OUTSIDE RECORDS SUMMARY | 2024-08-25 16:04 | XMS_ITS | Clinical Summary ---
Author Organization [facility] Address [address] [place] [address] Care Team Providers Care Traveling Crane Operator Name Role Phone Ellen Valladares MD Primary Care Provide r Allergies No known active allergies Medications Medication Sig Dispensed Refills Start Date End Date Status diclofenac (VOLTAREN) 75 mg EC tablet Take 1 tablet (75 mg total) by mouth 2 (two) times a day. Active predniSONE (DELTASONE) 20 mg tablet Take 1 tablet (20 mg total) by mouth 1 (one) time each day. Active clonazePAM (KlonoPIN) 0.5 mg tablet Take 1 tablet (0.5 mg total) by mouth 2 (two) times a day if needed. Max Daily Amount: 1 mg Active cyanocobalamin (VITAMIN B-12) 100 mcg tablet Take 0.5 tablets (50 mcg total) by mouth 1 (one) time each day. Active cholecalciferol (VITAMIN D-3) 50 mcg (2,000 unit) capsule Take by mouth. Active melatonin 10 mg tablet Take by mouth. Active FLUoxetine (PROzac) 20 mg capsule Take 1 capsule (20 mg total) by mouth 1 (one) time each day. Active oxyBUTYnin (DITROPAN) 5 mg tablet Take 1 tablet (5 mg total) by mouth 1 (one) time each day. Active aspirin (Vazalore) 81 mg capsule Take by mouth. Active metFORMIN (GLUCOPHAGE) 1,000 mg tablet Take 1 tablet (1,000 mg total) by mouth 2 (two) times a day with meals. Active buPROPion XL (WELLBUTRIN XL) 150 mg 24 hr tablet Take 1 tablet (150 mg total) by mouth 1 (one) time each day in the morning. Active atorvastatin (LIPITOR) 10 mg tablet Take 1 tablet (10 mg total) by mouth 1 (one) time each day. Active dulaglutide (Trulicity) 1.5 mg/0.5 mL pen injector injection Inject under the skin. Active insulin glargine (LANTUS) 100 unit/mL injection Inject under the skin at bedtime. Active Active Problems Problem Noted Date Diagnosed Date Depression 07/06/2024 Diabetes 07/06/2024 Hypertension 07/06/2024 Obesity 09/27/2019 Class 3 severe obesity with body mass index (BMI) of 40.0 to 44.9 in adult Morbid obesity with BMI of 45.0-49.9, adult Surgical History Surgery Date Site/Laterality Comments HERNIA REPAIR PROCEDURE: HISTORICAL HERNIA REPAIR/ING Medical History Medical History Date Comments Diabetes ([facility]) DX:Diabetes ( HCC) Depression DX:Depression Hypertension DX:Hypertension Family History Medical History Relation Name Comments Diabetes Brother Seizures Father Other: hypertension Mother Relation Name Status Comments Brother Alive Father Alive Mother Alive Social History Tobacco Use Types Packs/Day Years Used Date Smoking Tobacco: Never Smokeless Tobacco: Never Alcohol Use Standard Drinks/Week Comments Yes 0 (1 standard drink = 0.6 oz pur e alcohol) Sex and Gender Information Value Date Recorded Sex Assigned at Not on file Gender Identity Not on file Sexual Orientation Not on file Job Start Date Occupation Industry Not on file Not on file Not on file Obstetrics History Last Filed Vital Signs Vital Sign Reading Time Taken Comments Blood Pressure 120/86 08/20/2022 10:23 AM EST Pulse 83 08/20/2022 10:23 AM EST Temperature - - Respiratory Rate - - Oxygen Saturation - - Inhaled Oxygen Concentration - - Weight 106 kg (233 lb) 07/09/2023 10:07 AM EST Height 154.9 cm (5' 1 ) 08/20/2022 10:23 AM EST Body Mass Index 44.02 08/20/2022 10:23 AM EST Plan of Treatment Upcoming Encounters Date Type Department Care Team (Late st Contact Info) Description 08/31/2024 1:30 PM EST Consult Orth[facility] [place] [address] [phone] Tremayne Segovia, DPM [address] [address] Health Maintenance Due Date Last Done Comments Pneumococcal Vaccine: Pediat rics (0 to 5 Years) and At-Risk Patients (6 to 64 Years) (1 of 2 - PCV) 02/03/1974 Diabetes: Annual Foot Exam 02/03/1978 Diabetes: Annual Retina Eye Exam 02/03/1978 DTaP,Tdap,and Td Vaccines (1 - Tdap) 02/03/1987 Hepatitis B Vaccines (1 of 3 - 19+ 3-dose series) 02/03/1987 Cervical Cancer Screening: P ap Smear 02/03/1989 Zoster Vaccines (1 of 2) 02/03/2018 Colorectal Cancer Screening: Colonoscopy 06/26/2022 Depression Screening 06/26/2022 HIV Screening 06/26/2022 Hepatitis C Screening 06/26/2022 Social Influencers of Health Screening 06/26/2022 Diabetes: Annual Urine Albumin-Creatinine Ratio (uACR) 07/12/2022 Diabetes: Blood Sugar Contro l Test (HGBA1C) 01/23/2023 07/25/2022 Breast Cancer Screening 02/27/2023 02/27/2021 Diabetes: Annual GFR (Glomer ular Filtration Rate) 07/25/2023 07/25/2022 Hypertension/CHF/CAD Annual BMP Blood Test 07/25/2023 07/25/2022 COVID-19 Vaccine ( - 2023-2 5 season) 2024 Influenza Vaccine (#1) 2024 Cholesterol Screening (Lipid Panel) 07/25/2027 07/25/2022 HIB Vaccines Aged Out No longer eligi [...] on patient's age to complete this topic MMR Vaccines Aged Out No longer eligi ble based on patient's age to complete this topic Meningococcal ACWY Vaccine Aged Out N o longer eligible based on patient's age to complete this topic RSV Immunization Patients Un lyndsay 20 months Aged Out No longer eligible b ased on patient's age to complete this topic Varicella Vaccines Aged Out No longer eligible based on patient's age to complete this topic Procedures Procedure Name Priority Date/Time Associated Diagnosis Comments ANNUAL BMP BLOOD TEST Routine 07/25/2022 HEMOGLOBIN A1C Routine 07/25/2022 LIPID PANEL Routine 07/25/2022 [facility] SCREENING DIGITAL Routine 02/27/2021 2:52 PM EDT Encounter for screening mammogram for malignant neoplasm of breast from Last 3 Months or Most Recently Relevant to Health Maintenance Results * Annual BMP Blood Test (07/25/2022) Annual BMP Blood Test Abstracted Historical Provider [facility] MAIN[facility]ORDON[facility] E * (ABNORMAL) Hemoglobin A1c (07/25/2022) Hemoglobin A1C 7.1(A) 6.5 % Blood Venous blood specimen / Unknown Historical Provider LAB BLOOD ORDERAB LES * Lipid panel (07/25/2022) LDL/HDL Ratio 2 0 - 4 Triglycerides 101 0 - 150 mg/dL Cholesterol 146 0 - 200 mg/dL HDL 61 40 mg/dL LDL Cholesterol 65 0 - 100 mg/dL Blood Venous blood specimen / Unknown Historical Provider LAB BLOOD ORDERAB LES * [facility] SCREENING DIGITAL (02/27/2021 2:52 PM EDT) Anatomical Region Laterality Modality Mammography 02/27/2021 1:44 PM EDT Narrative 02/27/2021 2:52 PM EDT [facility] Diagnostic Imaging Department [address] [place] [address] Patient: ??CLAUDINE HERNANDEZ M ?/Age/Sex: 1970 - 51 - F Unit#: ??[id number] ? Location/Status: ??SPDIMAM/REG CLI ? Mnemonic/Ordering Site: ??DIGSC/SPMAM Ordering Physician: ??KONG MCDONOUGH PA-C Thelma Screening Digital - 02/27/21 - 1427 EXAM: [facility] Screening Digital EXAM DATE AND TIME: 02/27/2021 2:28 PM HISTORY: ??Screening. Greater than 100 pound weight gain since previous mammogram. Sister had breast carcinoma at age 58. COMPARISON: ??08/29/03 TECHNIQUE: CC and MLO views of both breasts were obtained using full field digital mammography. Bilateral digital breast tomosynthesis was performed in the MLO projection. Computer aided detection with the [employer] 7.2-H was employed. TISSUE DENSITY: b. There are scattered areas of fibroglandular density. FINDINGS: No suspicious masses, grouped microcalcifications, or areas of architectural distortion are seen. Vascular calcification is present. The skin is unremarkable. IMPRESSION: Stable mammographic appearance of the breasts. ??No evidence of malignancy is seen. A negative mammogram in the presence of a clinically suspicious palpable abnormality does not preclude the possibility of malignancy or alter the indications for biopsy. BI-RADS: ??Category 2: Benign RECOMMENDATION(S): 1: Routine screening mammogram BILATERAL in 1 year. 52926, 50053 3342F, 7025F Dictating Physician: ??GALILEA CR MD Electronically Signed by: ??GALILEA CR MD Dic Date/Time: ??02/27/21 1451 Sign date/Time: ??02/27/21 1452 Procedure Note Galilea Cr MD - 07/24/2022 [facility] Diagnostic Imaging Department [address] [place] [address] Patient: CLAUDINE HERNANDEZ /Age/Sex: 1970 - 51 - F Unit#: [id number] Location/Status: [facility]/REG CLI Mnemonic/Ordering Site: [facility] Ordering Physician: KONG MCDONOUGH PA-C [facility] Screening Digital - 02/27/21 - 1427 EXAM: [facility] Screening Digital EXAM DATE AND TIME: 02/27/2021 2:28 PM HISTORY: Screening. Greater than 100 pound weight gain since previous mammogram. Sister had breast carcinoma at age 58. COMPARISON: 08/29/03 TECHNIQUE: CC and MLO views of both breasts were obtained using fullfield digital mammography. Bilateral digital breast tomosynthesis was performedin the MLO projection. Computer aided detection with the [employer]as employed. TISSUE DENSITY: b. There are scattered areas of fibroglandular density. FINDINGS: No suspicious masses, grouped microcalcifications, or areas ofarchitectural distortion are seen. Vascular calcification is present. The skin is unremarkable. IMPRESSION: Stable mammographic appearance of the breasts. No evidence of malignancyis seen. A negative mammogram in the presence of a clinically suspicious palpable abnormality does not preclude the possibility of malignancy or alter the indications for biopsy. BI-RADS: Category 2: Benign RECOMMENDATION(S): 1: Routine screening mammogram BILATERAL in 1 year. 64627, 30338 1652F, 7036F Dictating Physician: GALILEA CR MD Electronically Signed by: GALILEA CR MD Dic Date/Time: 02/27/211450 Sign date/Time: 02/27/211451 Kong VILLAGOMEZ IMSaurabh BI PROCEDURES from Last 3 Months or Most Recently Relevant to Health Maintenance Care Teams Traveling Crane Operator Relationship Specialty Start Date End Date Ellen Valladares MD [address] [place] [phone] PCP - General 01/14/24
--- OUTSIDE RECORDS SUMMARY | 2024-08-25 16:04 | XMS_ITS | Encounter Summary ---
Author Organization [employer] Address [address] [facility] 7t [place] [address] Care Team Providers Care Aeronautical Engineering Professor Name Role Phone Ellen Valladares MD Primary Care Provide r Reason for Visit * Reason Onset Date Comments Results 08/18/2024 Encounter Details Date Type Department Care Team ([facility] st Contact Info) Description 08/18/2024 Telephone [facility] MEDICINE [address] [place], [place] [phone] Ellen Valladares MD [address] [place], [place] [phone] Results Social History Tobacco Use Types Packs/Day Years [...] encounter Miscellaneous Notes * Telephone Encounter - Iraida Schultz RN - 08/18/2024 5:17 PM EST TC placed to patient [phone] via [employer] ([place] #[id number]) in regards to below message regarding echocardiogram results. Patient and partner verbalized understanding. Patient to f/u PRN. * Telephone Encounter - Ronnie Miles - 08/18/2024 4:13 PM EST Tc from pt returning call. * Telephone Encounter - Dorothy Trujillo RN - 08/18/2024 3:35 PM EST Tc to pt via [employer] aging room operator id: [phone] to let them know per PCP Please let patient know I reviewed her echocardiogram her heart function is normal there is a small calcification in her aorticvalve but is working normally, no need for further follow-up . No answer, lvm to return call and ask to speak to red team nurses. * Telephone Encounter - Anali Fernandes - 08/18/2024 1:30 PM EST TC from pt requesting call back regarding Results. Type of results: US of the heart Date when done: 08/12/23 Facility: [facility] [place] documented in this encounter Plan of Treatment Upcoming Encounters Date Type Department Care Team (Late st Contact Info) Description 09/07/2024 2:15 PM EST Procedure Visit [facility] MEDICINE [address] [place], [place] [phone] Lina Danielle CNM [address] [place] [address] documented as of this encounter Visit Diagnoses Not on filedocumented in this encounter Additional Health Concerns Assessment Noted Time PHQ-9 Depression Total Score: 9 05/18/20 24 3:59 PM EDT documented as of this encounter Care Teams Aeronautical Engineering Professor Relationship Specialty Start Date End Date Ellen Valladares MD [address] [place] [address] PCP - General Family Medicine 10/03/21 documented as of this encounter
--- OUTSIDE RECORDS SUMMARY | 2024-08-25 16:04 | XMS_ITS | Encounter Summary ---
Author Organization [employer] [facility] Address [address] [address] Care Team Providers Care Home Sales Service Professional Name Role Phone Ellen Valladares MD Primary Care Provide r Reason for Referral * Consultation (Routine) - Authorized Specialty Diagnoses / Procedures Referred By Naman t Referred To Contact Vascular Surgery Diagnoses Vascular insufficiency Ellen Valladares MD [address] [place] [address] Phone: tel: fax: [facility] [address] [place] [address] Phone: tel: fax: Referral ID Status Reason Start Date Expiration Date Visits Requested Visits Authorized [id number] Authorized Specialty Services Required 07/13/2025 6 6 Reason for Visit * Reason Onset Date Comments callback requested 07/05/2024 PT-1 07/05/2024 A PT-1 [id number] has been submitted on your behalf through the [employer] Portal ([employer]). (Cardiology)A PT-1 [id number] has been submitted on your behalf through the [employer] Customer [employer] Portal ([employer]). ([facility]) Encounter Details Date Type Department Care Team (Late st Contact Info) Description 07/05/2024 Telephone [facility] MEDICINE [address] [place], [place] [phone] Ellen Valladares MD [address], [place] [phone] callback requested; PT-1 (A PT-1 [id number] has been submitted on your behalf through the [employer] Portal (Att[employer]). (Cardiology)/A PT-1 [id number] has been submitted on your behalf through the [employer] Portal (Attunity). ([employer])) Social History Tobacco Use Types Packs/Day Years [...] your housing situation today? I have dylon armen 08/22/[address] you li [...] encounter Miscellaneous Notes * Telephone Encounter - Mariana Sweeney - 07/06/2024 10:52 AM EST A PT-1 [id number] has been submitted on your behalf through the [employer] Web Portal ([employer]).(Cardiology Office) A PT-1 [id number] has been submitted on your behalf through the [employer] Portal ([employer]).([facility]) * Telephone Encounter - Iraida Schultz RN - 07/05/2024 12:03 PM EST TC placed to patient [phone] in regards to below message. Patient reports she had a positive HORACE, and was referred to a foil cutter but has not heard anything regarding the referral. Patient wants a status update (referral placed 05/26/24). Patient would like to know what office she is being referred to. Please review and advise. Thank you! Patient also reports she needs PT1 for: Cardiology office [address] [place] [address] [facility] [address] [place] [address] [facility] [address] [place] [address] Patient reports she has a cardiology appointment on 07/14/24, RN advised patient she will need to find transportation to this appointment as PT1 takes approx 2 weeks for a location to be added otherwise she will need to call office and R/X appointment. Patient also reports she has a dental appointment at [facility] on 07/16/24 however also informed she willneed to find transportation to this appointment as PT1 takes approx 2 weeks for a location to be added otherwise she will need to call office and R/X appointment. Please review PT1 and add above locations. Thank you! * Telephone Encounter - Jadon Larson - 07/05/2024 10:22 AM EST Tc from pt requesting a callback in regards a new referral/order to [facility] as she had request before and nothing hasn't be done.Facility inform her to referral to be sent to fax number [phone]. Callback number [phone] documented in this encounter Plan of Treatment Upcoming Encounters Date Type Department Care Team (Late st Contact Info) Description 09/07/2024 2:15 PM EST Procedure Visit [facility] MEDICINE [address] [place] [address] Lina Danielle CNM [address] [place] [address] Scheduled Referrals Name Type Priority Associated Diagnoses Orde r Schedule Referral to Vascular Surgery Outpatient Referral Routine Vascular insufficiency Expected: 07/06/2024 (Approximate), Expires: 07/06/2025 documented as of this encounter Visit Diagnoses Diagnosis Vascular insufficiency- Primary Unspecified circulatory system disorder documented in this encounter Additional Health Concerns Assessment Noted Time PHQ-9 Depression Total Score: 9 05/18/20 24 3:59 PM EDT documented as of this encounter Care Teams Home Sales Service Professional Relationship Specialty Start Date End Date Ellen Valladares MD [address] [place] [address] PCP - General Family Medicine 10/03/21 documented as of this encounter
--- OUTSIDE RECORDS SUMMARY | 2024-08-25 16:04 | XMS_ITS | Encounter Summary ---
Author Organization [employer] Address [address] [place] [address] Care Team Providers Care Fruit Receiver Name Role Phone Ellen Valladares MD Primary Care Provide r Reason for Visit * Reason Onset Date Comments Nurse Triage 05/02/2023 Encounter Details Date Type Department Care Team ([facility] st Contact Info) Description 05/02/2023 Telephone [facility] MEDICINE [address] [place], [place] [phone] Ellen Valladares MD [address] [place] [address] Nurse Triage Social History Tobacco Use Types Packs/Day Years Used Date Smoking Tobacco: Never Smokeless Tobacco: Never Alcohol Use Standard Drinks/Week Comments Not Currently 0 (1 standard drink = 0.6 oz pur e alcohol) Depression Answer Date Recorded Patient Health Questionnaire-9 Score 0 08/16/2022 Housing Stability Answer Date Recorded What is your housing situation today? I have dylon ayers 05/06/[address] you li ve. Do you have problems with any of the following? None of the above 05/06/2023 Food Insecurity Answer Date Recorded Within the past 12 months, y ou worried that your food would run out before you got money to buy more: Never True 05/06/2023 Within the past 12 months,th e food you bought just didn't last and you didn't have enough money to get more: Never True 04/2023 Transportation Answer Date Recorded In the past 12 months, has l ack of transportation kept you from medical appts, meetings, work or from getting things needed for daily living? No 05/06/2023 Utilities Answer Date Recorded In the past 12 months, has t he electric, gas, oil or water company threatened to shut off services in your home? No 05/06/2023 Depression Answer Date Recorded Patient Health Questionnaire-2 Score 0 08/16/2022 Comments Unknown Sex and Gender Information Value Date Recorded Sex Assigned at Female 05/27/2022 10:16 AM EDT Legal Sex Female 10:16 AM EDT Gender Identity Female 05/27/2022 10:16 AM EDT Sexual Orientation Straight 05/27/2022 10 :16 AM EDT documented as of this encounter Miscellaneous Notes * Telephone Encounter - Mayra Neel - 05/02/2023 1:17 PM EDT Symptom: Vaginal Symptoms - Not Bleeding Outcome: Schedule an urgent appointment (within 1 hour) or talk to a nurse or provider soon Reason: Any pelvic pain, requesting STD testing The caller accepted this outcome Please contact pt at [phone] documented in this encounter Plan of Treatment Upcoming Encounters Date Type Department Care Team (Late st Contact Info) Description 09/07/2024 2:15 PM EST Procedure Visit [facility] MEDICINE [address] [place], [place] [phone] Lina Danielle CNM [address] [place] [address] documented as of this encounter Visit Diagnoses Not on filedocumented in this encounter Additional Health Concerns Assessment Noted Time PHQ-9 Depression Total Score: 0 08/16/19 23 10:02 AM EST documented as of this encounter Care Teams Fruit Receiver Relationship Specialty Start Date End Date Ellen Valladares MD [address] [place], [place] [phone] PCP - General Family Medicine 10/03/21 documented as of this encounter
--- OUTSIDE RECORDS SUMMARY | 2024-08-25 16:04 | XMS_ITS | Encounter Summary ---
Author Organization [employer] Address [address] [place] [address] [address], [place] [address] Care Team Providers Care Crushing Mill Operator Name Role Phone Ellen Valladares MD Primary Care Provide r Reason for Visit * Reason Onset Date Comments PT1 07/01/2022 Encounter Details Date Type Department Care Team ([facility] st Contact Info) Description 07/01/2022 Telephone [facility] MEDICINE [address] [place], [place] [phone] Ellen Valladares MD [address] [place] [address] PT1 Social History Tobacco Use Types Packs/Day Years Used Date Smoking Tobacco: Never Assessed Comments Unknown Sex and Gender Information Value Date Recorded Sex Assigned at Female 05/27/2022 10:16 AM EDT Legal Sex Female 10:16 AM EDT Gender Identity Female 05/27/2022 10:16 AM EDT Sexual Orientation Straight 05/27/2022 10 :16 AM EDT documented as of this encounter Miscellaneous Notes * Telephone Encounter - Jose Smith - 07/03/2022 11:49 AM EST PT1 Date:Jul 11, 2022 / Jul 19, 2022 Time:12:30 Pm/ 9:20 AM address: [address] [place] [address] specialty:Insurance Professional # visits: zyglo technician:1 Wheelchair: N/A PT1 Date:Jun Time:10:30 Am address:[address] [place] [address] specialty: Vascular Xray # visits: zyglo technician:1 Wheelchair:N/A PT1 Date:Jun Time: 3:00PM address:[address] [facility] Specialty: Vascular # visits: zyglo technician: 1 Wheelchair: N/A PT1 Date:TBD Time:TBD address:[address] [facility] specialty:Ortho # visits: zyglo technician:1 Wheelchair: N/A PT1 Date: Jul 15, 2022 Time:11:00 Am address:[address] [facility] specialty:Ortho Xray # visits: zyglo technician:1 Wheelchair:N/A * Telephone Encounter - Zamzam Sampson - 07/02/2022 11:08 AM EST TC from patient calling in regards to PT1 approval. Thermite Welder let patient know it takes 7-10 days and letter will be mailed out. Patient understood. * Telephone Encounter - Ilya Sampson - 07/01/2022 12:21 PM EST Tc from pt requesting pt1 Location: [address] [place] [address] Specialty: Time: 11 am Date: 07/03/22 Segmental Wall Installer: yes Wheelchair access n/a Location: [address] [place] [address] Specialty: Time: 10 am Date: 07/11/22 Segmental Wall Installer: yes Wheelchair access n/a Location: [address] [place] [address] Specialty: Time:12:30 pm Date: 07/11/22 Segmental Wall Installer: yes Wheelchair access n/a Location: [address] [place] [address] Specialty: alistair theodore Time:07/15/22 Date: 11:30 am Segmental Wall Installer: yes Wheelchair access n/a Location: [address] [place] [address] Specialty: Time: 10:30 am Date: 07/18/22 Segmental Wall Installer: yes Wheelchair access n/a Location: [address] [place] [address] Specialty: Time: 09:30 am Date: 07/19/22 Segmental Wall Installer: yes Wheelchair access n/a Location: [address] [place] [address] Specialty: Time 3pm Date: 07/23/22 Segmental Wall Installer: yes Wheelchair access n/a documented in this encounter Plan of Treatment Upcoming Encounters Date Type Department Care Team (Late st Contact Info) Description 09/07/2024 2:15 PM EST Procedure Visit [facility] MEDICINE [address] [place], [place] [phone] Lina Danielle, VENU [address] [place], [place] [phone] documented as of this encounter Visit Diagnoses Not on filedocumented in this encounter Care Teams Crushing Mill Operator Relationship Specialty Start Date End Date Ellen Valladares MD [address] [place] [address] PCP - General Family Medicine 10/03/21 documented as of this encounter
--- OUTSIDE RECORDS SUMMARY | 2024-08-25 16:04 | XMS_ITS | Encounter Summary ---
Author Organization [employer] Address [address] [facility] 7[place] [address] Care Team Providers Care Cardiac Exercise Specialist Name Role Phone Ellen Valladares MD Primary Care Provide r Reason for Visit * Reason Onset Date Comments Appointment Request 06/29/2024 Encounter Details Date Type Department Care Team ([facility] Contact Info) Description 06/29/2024 Telephone [facility] MEDICINE [address] [place], [place] [phone] Ellen Valladares MD [address] [place] [address] Appointment Request Social History Tobacco Use Types [...] encounter Miscellaneous Notes * Telephone Encounter - Brian Huffman - 06/29/2024 8:35 AM EST Tc from pt requesting to r/s PAP appt scheduled for 06/17/24, appt was a no show. Market Garden Worker attempted to r/s however zero availability. Please contact at [phone] documented in this encounter Plan of Treatment Upcoming Encounters Date Type Department Care Team (Late st Contact Info) Description 09/07/2024 2:15 PM EST Procedure Visit [facility] MEDICINE [address] [place] [address] Lina Danielle CNM [address] [place] [address] documented as of this encounter Visit Diagnoses Not on filedocumented in this encounter Additional Health Concerns Assessment Noted Time PHQ-9 Depression Total Score: 9 05/18/20 3:59 PM EDT documented as of this encounter Care Teams Cardiac Exercise Specialist Relationship Specialty Start Date End Date Ellen Valladares MD [address] [place] [address] PCP - General Family Medicine 10/03/21 documented as of this encounter
--- OUTSIDE RECORDS SUMMARY | 2024-08-25 16:04 | XMS_ITS | Encounter Summary ---
Author Organization [facility] Address [address] [facility] 7[address] [place] [address] Care Team Providers Care Warp Scouring Vat Tender Name Role Phone Ellen Valladares MD Primary Care Provide r Encounter Details Date Type Department Care Team (Latest Contact Info) Description 05/20/2022 Abstract [facility] CONVERSIONS Dental, Provider, DDS Social History Tobacco Use Types Packs/Day Years [...] Description 09/07/2024 2:15 PM EST Procedure Visit [facility] MEDICINE [address] [place], [place] [phone] Lina Danielle CNM [address] [place] [address] documented as of this encounter Visit Diagnoses Not on filedocumented in this encounter Care Teams Warp Scouring Vat Tender Relationship Specialty Start Date End Date Ellen Valladares MD [address] [place] [address] PCP - General Family Medicine 10/03/21 documented as of this encounter
--- OUTSIDE RECORDS SUMMARY | 2024-08-25 16:04 | XMS_ITS | Encounter Summary ---
Author Organization [employer] Address [address] [facility] 7[address] [place] [address] Care Team Providers Care Private Advisor Name Role Phone Ellen Valladares MD Primary Care Provide r Reason for Visit * Reason Onset Date Comments cx rs appt 07/15/2024 Encounter Details Date Type Department Care Team ([facility] st Contact Info) Description 07/15/2024 Telephone [facility] AD[facility] D[facility]AL [address] [place] [address] Cheryl Wall cx rs appt Social History Tobacco Use Types Packs/Day Years [...] * Telephone Encounter - Shirin Wright - 07/15/2024 2:29 PM EST Patient cancelled her appt for cleaning and exam because states she is sick and wants to rs. documented in this encounter Plan of Treatment Upcoming Encounters Date Type Department Care Team (Late st Contact Info) Description 09/07/2024 2:15 PM EST Procedure Visit [facility] MEDICINE [address] [place], [place] [phone] Lina Danielle CNM [address] [place] [address] documented as of this encounter Visit Diagnoses Not on filedocumented in this encounter Additional Health Concerns Assessment Noted Time PHQ-9 Depression Total Score: 9 05/18/20 24 3:59 PM EDT documented as of this encounter Care Teams Private Advisor Relationship Specialty Start Date End Date Ellen Valladares MD [address] [place], [place] [phone] PCP - General Family Medicine 10/03/21 documented as of this encounter
--- OUTSIDE RECORDS SUMMARY | 2024-08-25 16:04 | XMS_ITS | Encounter Summary ---
Author Organization [employer] Address [address] [facility] 7t [place] [address] Care Team Providers Care Leasing Consultant Name Role Phone Ellen Valladares MD Primary Care Provide r Encounter Details Date Type Department Care Team (Late st Contact Info) Description 08/11/2024 Orders Only GENERIC EXTERNAL DATA DEPARTMENT Provider, Generic External Data Social History Tobacco Use Types Packs/Day Years [...] Description 09/07/2024 2:15 PM EST Procedure Visit [facility] MEDICINE [address] [place], [place] [phone] Lina Danielle CNM [address] [place], [place] [phone] documented as of this encounter Procedures Procedure Name Priority Date/Time Associated Diagnosis Comments GLUCOSE, WHOLE BLOOD Routine 08/11/2024 1:38 PM EST documented in this encounter Results * (ABNORMAL) Glucose, Whole Blood (08/11/2024 1:38 PM EST) Glucose, Whole Blood 125(H) 60 - 115 mg/dL [facility] Comment:METER #: [id number] 5Testing performed in the Endocrinology Department [address] , [address], [facility]. 08/11/2024 1:38 PM EST 08/11/2024 1:42 PM EST us Generic External Data Provider LAB BLOOD ORDERAB LES Final Result [facility] [address] [place] [address] [phone] documented in this encounter Visit Diagnoses Not on filedocumented in this encounter Additional Health Concerns Assessment Noted Time PHQ-9 Depression Total Score: 9 05/18/20 24 3:59 PM EDT documented as of this encounter Care Teams Leasing Consultant Relationship Specialty Start Date End Date Ellen Valladares MD [address] [place] [address] PCP - General Family Medicine 10/03/21 documented as of this encounter
--- OUTSIDE RECORDS SUMMARY | 2024-08-25 16:05 | XMS_ITS | Encounter Summary ---
Author Organization [employer] Address [address] [facility] 7t [place] [address] Care Team Providers Care Export Freight Clerk Name Role Phone Ellen Valladares MD Primary Care Provide r Reason for Visit * Reason Onset Date Comments Appointment Request 08/19/2024 Encounter Details Date Type Department Care Team ([facility] Contact Info) Description 08/19/2024 Telephone [facility] MEDICINE [address] [place], [place] [phone] Mansoor Sampson [place] Appointment Request Social History Tobacco Use Types [...] encounter Miscellaneous Notes * Telephone Encounter - Mansoor Sampson MA - 08/19/2024 11:57 AM EST TC- Message below unable to reach LVM for patient to call back at [phone] to r\s appt for pap 30 mins .If patient returns call please carlos in any available slot 30 mins PHY can be used for paps . Tc from pt requesting to r/s PAP appt due to not feeling well. documented in this encounter Plan of Treatment Upcoming Encounters Date Type Department Care Team (Late st Contact Info) Description 09/07/2024 2:15 PM EST Procedure Visit [facility] MEDICINE [address] [place], [place] [phone] Lina Danielle CNM [address] [place] [address] documented as of this encounter Visit Diagnoses Not on filedocumented in this encounter Additional Health Concerns Assessment Noted Time PHQ-9 Depression Total Score: 9 05/18/20 24 3:59 PM EDT documented as of this encounter Care Teams Export Freight Clerk Relationship Specialty Start Date End Date Ellen Valladares MD [address] [place] [address] PCP - General Family Medicine 10/03/21 documented as of this encounter
== END 2024-08-25 14:20 | disposition home or self-care (01) ==
PROVIDERS: PCP Internal Medicine; Visit Provider Registered Nurse Diabetes Educator
DX: E11.65 Type 2 diabetes mellitus with hyperglycemia (principal)

== ENCOUNTER → 2024-08-25 13:48 | Outpatient (BNVA) | payer MEDICAID, SELFPAY | PROVIDERS: PCP Internal Medicine; Visit Provider Registered Nurse Diabetes Educator | DX: E11.65 Type 2 diabetes mellitus with hyperglycemia (principal) | CPT/HCPCS: 99211 ==

== ENCOUNTER 2024-09-28 13:53 | Outpatient (REF) | payer MEDICAID, SELFPAY ==
--- OUTSIDE RECORDS SUMMARY | 2024-09-28 17:33 | XMS_ITS | Encounter Summary ---
Author Organization [facility] Address [address] [facility] 7t [place] [address] Care Team Providers Care Bill Hiker Name Role Phone Ellen Valladares MD Primary Care Provide r Reason for Referral * Imaging (Urgent) - Authorized Specialty Diagnoses / Procedures Referred By Naman moser Referred To Contact Radiology Diagnoses Breast cancer screening by mammogram Family history of breast cancer in sister Procedures BI Mammogram Screening Tomosynthesis Bilateral Lina Danielle CNM [address] [place] [address] Phone: tel: fax: [address] Phone: tel: fax: Referral ID Status Reason Start Date Expiration Date V isits Requested Visits Authorized [id number] Authorized 09/28/2024 09/28/2025 1 1 * Imaging (Urgent) - Authorized Specialty Diagnoses / Procedures Referred By Naman t Referred To Contact Radiology Diagnoses Pelvic pain Procedures Us Pelvis complete Lina Danielle CNM [address] [place] [address] Phone: tel: fax: [address] Phone: tel: fax: Referral ID Status Reason Start Date Expiration Date V isits Requested Visits Authorized [id number] Authorized 09/28/2024 09/28/2025 1 1 * Imaging (Urgent) - Authorized Specialty Diagnoses / Procedures Referred By Naman moser Referred To Contact Radiology Diagnoses Pelvic pain Procedures US Pelvis Transvaginal Lina Danielle CNM [address] [place] [address] Phone: tel: fax: [address] Phone: tel: fax: Referral ID Status Reason Start Date Expiration Date V isits Requested Visits Authorized [id number] Authorized 09/28/2024 09/28/2025 1 1 Reason for Visit * Reason Comments Gynecologic Exam Encounter Details Date Type Department Care Team (Latest Contact Info) Description 09/28/2024 1:45 PM EST Procedure Visit [facility] [address] [place] [address] Lina Danielle CNM [address] [place], [place] [phone] Cervical cancer screening (Primary Dx); Breast cancer screening by mammogram; Screening examination for venereal disease; Pelvic pain; Family history of breast cancer in sister; Tinea cruris Social History Tobacco Use Types Packs/Day Years [...] AM EDT documented as of this encounter Last Filed Vital Signs Vital Sign Reading Time Taken Comments Blood Pressure 145/92 09/28/2024 1:17 PM EST Pulse 83 09/28/2024 1:17 PM EST Temperature 36.4 ??C (97.5 ??F) 09/28/2024 1:17 PM ES T Respiratory Rate 20 09/28/2024 1:17 PM EST Oxygen Saturation 100% 09/28/2024 1:17 PM EST Inhaled Oxygen Concentration - - Weight 101 kg (222 lb 6.4 oz) 09/28/2024 1:17 PM EST Height 157.5 cm (5' 2 ) 09/28/2024 1:17 PM EST Body Mass Index 40.68 09/28/2024 1:17 PM EST documented in this encounter Progress Notes * Lina Danielle CNM - 09/28/2024 1:45 PM EST Subjective Patient ID: Claudine Larson is a 54 y.o. female who presents for pap Here for pap/LOCAL SALES MANAGER visit. NIL/HPV neg 09/2019. Denies previous abnormal pap. HIV, Hep C, syphilis neg 04/2024. Gonorrhea/Chlamydia neg 05/2023. Received HBV vaccine series in 2016. She thinks she had mammogram in the past year. Sister diagnosed with breast cancer in her late 50s,Claudine doesn't speak with her. No other family history of breast/LOCAL SALES MANAGER cancer. Notes LLQ pain x 1 month, some nausea. Also notes itchy rash on inner thighs. Menopausal for several years, no bleeding since then. 1 AMAB partner x 1y, no safety concerns. Would like full STI testing today. Notes some vasomotor symptoms which are bothersome. Review of Systems Gastrointestinal: Positive for nausea. Negative for constipation, diarrhea and vomiting. Genitourinary: Positive for pelvic pain. Negative for dyspareunia, dysuria, frequency, genital sores, hematuria, menstrual problem, urgency, vaginal bleeding, vaginal discharge and vaginal pain. No abnormal pap, no abnormal bleeding, no breast pain, no breast mass, no nipple discharge Skin: Positive for rash. Objective BP (!) 145/92 (BP Location: Left arm, Patient Position: Sitting, BP Cuff Size: Large adult long) Pulse 83 Temp 97.5 ??F (36.4 ??C) (Temporal) Resp 20 Ht 5' 2 (1.575 m) Wt 222 lb 6.4 oz (101 kg) SpO2 100% BMI 40.68 kg/m?? Physical Exam Constitutional: Appearance: Normal appearance. Chest: Breasts: Right: Normal. No swelling, bleeding, inverted nipple, mass, nipple discharge, skin change or tenderness. Left: Normal. No swelling, bleeding, inverted nipple, mass, nipple discharge, skin change or tenderness. Genitourinary: General: Normal vulva. Labia: Right: No rash, tenderness, lesion or injury. Left: No rash, tenderness, lesion or injury. Vagina: Normal. No signs of injury and foreign body. No vaginal discharge, erythema, tenderness, bleeding or lesions. Cervix: No cervical motion tenderness, discharge, friability, lesion, erythema, cervical bleeding or eversion. Uterus: Normal. Not enlarged and not tender. Adnexa: Right adnexa normal. Right: No mass, tenderness or fullness. Left: Tenderness present. No mass or fullness. Comments: Ovaries non palpable bilaterally. Scaly rash inner thighs c/w tinea. Mild LLQ tenderness Lymphadenopathy: Upper Body: Right upper body: No supraclavicular or axillary adenopathy. Left upper body: No supraclavicular or axillary adenopathy. Neurological: Mental Status: She is alert. Psychiatric: Mood and Affect: Mood normal. Behavior: Behavior normal. Assessment/Plan Diagnoses and all orders for this visit: Cervical cancer screening - Pap Smear Cotest today. Repeat 5y if normal. Will contact with results. Report bleeding. Will get mammogram records. Advised trial of acupuncture for vasomotor symptoms. Given information on clinic hours. Let me knowif not helpful. Breast cancer screening by mammogram No mammogram records in past 12 months at [facility] or [facility]. Will order now. Screening examination for venereal disease - STI testing add on (NG, CT, Trich) - HIV-1/2 Antigen and Antibodies, Fourth Generation, with Reflexes; Future - Syphilis Screen; Future Pap based and serum STI testing today. Will contact with results. Pelvic pain - US Pelvis Transvaginal; Future - Us Pelvis complete; Future Not suspicious for PID, no masses on exam, but some LLQ tenderness. Will get ultrasound. Seek care urgently if pain worsens. Family history of breast cancer in sister They are not in contact. No recent mammogram at [facility] or [facility]. Will order and calculate risk of breast cancer to see if additional testing indicated. Other orders - clotrimazole (Lotrimin) 1 % cream; Apply topically 2 times daily for 28 days. Tinea Cruris For Lotrmin as directed. If fully resolved, may stop at 14 days, otherwise use for full 28 days. documented in this encounter Plan of Treatment Upcoming Encounters Date Type Department Care Team (Late st Contact Info) Description 11/18/2024 1:15 PM EDT Office Visit [facility] [address] [place] [phone] Ellen Valladares MD [address] [place] [address] 12/14/2024 3:15 PM EDT Office Visit [facility] [address] [place] [address] Ellen Valladares MD [address] [place] [address] Scheduled Orders Name Type Priority Associated Diagnoses Orde r Schedule Pap Smear Pathology and Cytology Routine Cervical cancer screening Ordered: 09/28/2024 STI testing add on (NG, CT, Trich) Pathology and Cytology Routine Screening examination for venereal disease Ordered: 09/28/2024 HIV-1/2 Antigen and Antibodies, Fourth Generation, with Reflexes Lab Routine Screening examination for venereal disease Expected: 09/28/2024 (Approximate), Expires: 09/28/2025 Syphilis Screen Lab Routine Screening examination for venereal disease Expected: 09/28/2024 (Approximate), Expires: 09/28/2025 US Pelvis Transvaginal Imaging Urgent Pelvic pain Expected: 09/28/2024, Expires: 09/28/2025 Us Pelvis complete Imaging Urgent Pelvic pain Expected: 09/28/2024, Expires: 09/28/2025 BI Mammogram Screening Tomosynthesis Bilateral Imaging Urgent Breast cancer screening by mammogram Family history of breast cancer in sister Expected: 09/28/2024, Expires: 11/28/2025 documented as of this encounter Visit Diagnoses Diagnosis Cervical cancer screening- Primary Screening for malignant neoplasm of the cervix Breast cancer screening by mammogram Screening examination for venereal disease Pelvic pain Family history of breast cancer in sister Family history of malignant neoplasm of breast Tinea cruris Dermatophytosis of groin and perianal area documented in this encounter Additional Health Concerns Assessment Noted Time PHQ-9 Depression Total Score: 9 05/18/20 24 3:59 PM EDT documented as of this encounter Care Teams Bill Hiker Relationship Specialty Start Date End Date Ellen Valladares MD [address] [place] [phone] PCP - General Family Medicine 10/03/21 documented as of this encounter
--- OUTSIDE RECORDS SUMMARY | 2024-09-28 17:33 | XMS_ITS | Encounter Summary ---
Author Organization [employer] Address [address] [facility] 7t [place] [address] Care Team Providers Care Radial Arm Saw Operator Name Role Phone Ellen Valladares MD Primary Care Provide r Reason for Visit * Reason Onset Date Comments Durable Medical Equipment 06/24/2023 Encounter Details Date Type Department Care Team ([facility] st Contact Info) Description 06/24/2023 Telephone [facility] [address] [place], [place] [phone] Ellen Valladares MD [address] [place] [address] Durable Medical Equipment Social History Tobacco Use [...] pt requesting diabetic shoes and stockings. Cesar [address] [place] [address] documented in this encounter Plan of Treatment Upcoming Encounters Date Type Department Care Team (Late st Contact Info) Description 11/18/2024 1:15 PM EDT Office Visit [facility] [address] [place] [phone] Ellen Valladares MD [address] [place] [phone] 12/14/2024 3:15 PM EDT Office Visit [facility] [address] [place] [phone] Ellen Valladares MD [address] [place] [phone] documented as of this encounter Visit Diagnoses Not on filedocumented in this encounter Additional Health Concerns Assessment Noted Time PHQ-9 Depression Total Score: 0 08/16/19 10:02 AM EST documented as of this encounter Care Teams Radial Arm Saw Operator Relationship Specialty Start Date End Date Ellen Valladares MD [address] [place] [address] PCP - General Family Medicine 10/03/21 documented as of this encounter
--- OUTSIDE RECORDS SUMMARY | 2024-09-28 17:33 | XMS_ITS | Encounter Summary ---
Author Organization [employer] Address [address] [facility] 7t [place] [address] Care Team Providers Care Manager Winter Name Role Phone Ellen Valladares MD Primary Care Provide r Encounter Details Date Type Department Care Team (Late st Contact Info) Description 05/13/2024 Orders Only [facility] [address] [place], [place] [phone] ProviderLakeshia MD Social History Tobacco Use Types [...] Description 11/18/2024 1:15 PM EDT Office Visit [facility] MED[facility] [address] [place] [address] [phone] Ellen Valladares MD [address] [place] [address] [phone] 12/14/2024 3:15 PM EDT Office Visit [address] [phone] Ellen Valladares MD [address] [place] [phone] documented as of this encounter Procedures Procedure Name Priority Date/Time Associated Diagnosis Comments HM PAP/HPV Routine 10/06/2019 1:37 PM EDT documented in this encounter Results * HM PAP/HPV (10/06/2019 1:37 PM EDT) Historical Provider HEALTH MAINTENANCE Final Result documented in this encounter Visit Diagnoses Not on filedocumented in this encounter Additional Health Concerns Assessment Noted Time PHQ-9 Depression Total Score: 0 08/16/19 23 10:02 AM EST documented as of this encounter Care Teams Manager Winter Relationship Specialty Start Date End Date Ellen Valladares MD [address] [place] [address] [phone] PCP - General Family Medicine 10/03/21 documented as of this encounter
--- OUTSIDE RECORDS SUMMARY | 2024-09-28 17:33 | XMS_ITS | Encounter Summary ---
Author Organization [employer] Address [address] [facility] 7t [place] [address] Care Team Providers Care Assistant Professor Of Anthropology Name Role Phone Ellen Valladares MD Primary Care Provide r Reason for Visit * Reason Onset Date Comments cx rs appt 07/15/2024 Encounter Details Date Type Department Care Team ([facility] st Contact Info) Description 07/15/2024 Telephone [facility] ADULT DENTAL [address] [place] [address] Cheryl Wall cx rs appt Social History [...] Description 11/18/2024 1:15 PM EDT Office Visit [facility] MED[facility]INE [address] [place] [phone] Ellen Valladares MD [address] [place] [phone] 12/14/2024 3:15 PM EDT Office Visit [facility] [address] [place] [phone] Ellen Valladares MD [address] [place] [phone] documented as of this encounter Visit Diagnoses Not on filedocumented in this encounter Additional Health Concerns Assessment Noted Time PHQ-9 Depression Total Score: 9 05/18/20 3:59 PM EDT documented as of this encounter Care Teams Assistant Professor Of Anthropology Relationship Specialty Start Date End Date Ellen Valladares MD [address] [place] [phone] PCP - General Family Medicine 10/03/21 documented as of this encounter
--- OUTSIDE RECORDS SUMMARY | 2024-09-28 17:33 | XMS_ITS | Encounter Summary ---
Author Organization [employer] Address [address] [facility] 7t [place] [address] Care Team Providers Care Watch Leader Name Role Phone Ellen Valladares MD Primary Care Provide r Reason for Visit * Reason Onset Date Comments Nurse Triage 05/02/2023 Encounter Details Date Type Department Care Team ([facility] st Contact Info) Description 05/02/2023 Telephone [facility] [address] [place], [place] [phone] Ellen Valladares MD [address] [place] [address] Nurse Triage Social History Tobacco Use Types [...] accepted this outcome Please contact pt at [phone] documented in this encounter Plan of Treatment Upcoming Encounters Date Type Department Care Team (Late st Contact Info) Description 11/18/2024 1:15 PM EDT Office Visit [facility] [address] [place] [phone] Ellen Valladares MD [address] [place] [phone] 12/14/2024 3:15 PM EDT Office Visit [facility] [address] [place] [phone] Ellen Valladares MD [address] [place] [phone] documented as of this encounter Visit Diagnoses Not on filedocumented in this encounter Additional Health Concerns Assessment Noted Time PHQ-9 Depression Total Score: 0 08/16/19 23 10:02 AM EST documented as of this encounter Care Teams Watch Leader Relationship Specialty Start Date End Date Ellen Valaldares MD [address] [place] [phone] PCP - General Family Medicine 10/03/21 documented as of this encounter
--- OUTSIDE RECORDS SUMMARY | 2024-09-28 17:33 | XMS_ITS | Continuity of Care Document ---
Author Organization [facility] Address [address] [facility] [address] [place] [address] Phone Care Team Providers Care Forensic Sergeant Name Role Phone Z-Converted, Provider Unavailable Unavailabl e Advance Directives Directive Yes / No Effective Date File Name No Information Encounters Encounter Description Practice Location Reason(s) For Visit Diagnoses Date Provider Providers Copied on Encounter [facility], [address] [place] [address] 2,[address], [place], [place], [id number], [place] tel:[phone] Routine general medical examination at a health care facility 6 Z-Convert ed Provider. . Family History Family Member Type Diagnosis Age At Onset No Information Payers Payer name Insurance type Covered constitution party ID Authoriza tion(s) No Information Social [...]
--- OUTSIDE RECORDS SUMMARY | 2024-09-28 17:33 | XMS_ITS | Encounter Summary ---
Author Organization [employer] Address [address] [facility] 7t [place] [address] Care Team Providers Care Inclusion Manager Name Role Phone Ellen Valaldares MD Primary Care Provide r Encounter Details Date Type Department Care Team (Latest Contact Info) Description 09/28/2024 Travel Social History Tobacco Use Types Packs/Day Years [...] Description 11/18/2024 1:15 PM EDT Office Visit [facility] [address] [place] [phone] Ellen Valladares MD [address] [place] [phone] 12/14/2024 3:15 PM EDT Office Visit [facility] [address] [place] [phone] Ellen Valladares MD [address] [place] [phone] documented as of this encounter Visit Diagnoses Not on filedocumented in this encounter Additional Health Concerns Assessment Noted Time PHQ-9 Depression Total Score: 9 05/18/20 24 3:59 PM EDT documented as of this encounter Care Teams Inclusion Manager Relationship Specialty Start Date End Date Ellen Valladares MD [address] [place] [address] [phone] PCP - General Family Medicine 10/03/21 documented as of this encounter
--- OUTSIDE RECORDS SUMMARY | 2024-09-28 17:33 | XMS_ITS | Clinical Summary ---
Author Organization [facility] Address [address] [place] [address] Phone Care Team Providers Care Claims Supervisor Name Role Phone Ellen Valladares MD Primary Care Provide r Allergies No known active allergies Medications diclofenac (VOLTAREN) 75 mg EC tablet Take [...] Medical History Medical History Date Comments Diabetes (CMS/HCC) DX:Diabetes ( HCC) Depression DX:Depression Hypertension DX:Hypertension Family History Medical History Relation Name Comments Diabetes Brother Seizures Father Other: hypertension Mother Relation Name Status Comments Brother Alive Father Alive Mother Alive Social History Tobacco Use Types Packs/Day Years Used Date Smoking Tobacco: Never Smokeless Tobacco: Never Alcohol Use Standard Drinks/Week Comments Yes 0 (1 standard drink = 0.6 oz pur e alcohol) Comments Unknown Sex and Gender Information Value Date Recorded Sex Assigned at Not on file Legal Sex Female 1:55 PM EST Gender Identity Not on file Sexual Orientation Not on file Obstetrics History Last Filed [...] 08/20/2022 10:23 AM EST Plan of Treatment Health Maintenance Due Date Last Done Comments Diabetes: Annual Foot Exam 02/03/1978 Diabetes: Annual Retina Eye Exam 02/03/1978 DTaP,Tdap,and Td Vaccines (1 - Tdap) 02/03/1987 Hepatitis B Vaccines (1 of 3 - 19+ 3-dose series) 02/03/1987 Pneumococcal Vaccine: 50+ Ye ars (1 of 2 - PCV) 02/03/1987 Pneumococcal Vaccine: Pediat rics (0 to 5 Years) and At-Risk Patients (6 to 64 Years) (1 of 2 - PCV) 02/03/1987 Cervical Cancer Screening: P ap Smear [...] patient's age to complete this topic Meningococcal B Vacine Aged Out No lo nger eligible based on patient's age to complete this topic RSV Immunization Patients Un lyndsay 20 months Aged Out No longer eligible b ased on patient's age to complete this topic Varicella Vaccines Aged Out No longer eligible based on patient's age to complete this topic Procedures Procedure Name Priority Date/Time Associated Diagnosis Comments HM ANNUAL BMP BLOOD TEST Routine 07/25/2022 HEMOGLOBIN A1C Routine 07/25/2022 LIPID PANEL Routine 07/25/2022 [facility] SCREENING DIGITAL Routine 02/27/2021 2:52 PM EDT Encounter for screening mammogram for malignant neoplasm of breast from Last 3 Months or Most Recently Relevant to Health Maintenance Results * Annual BMP Blood Test (07/25/2022) Pathologist [facility] Annual BMP Blood Test Abstracted Historical Provider HEALTH MAINTENANCE Final Result * (ABNORMAL) Hemoglobin A1c (07/25/2022) [facility] Hemoglobin A1C 7.1(A) <=6.5 % Blood Venous blood specimen / Unknown Historical Provider LAB BLOOD ORDERABLES Roseline l Result * Lipid panel (07/25/2022) [facility] LDL/HDL Ratio 2 0 - 4 Triglycerides 101 0 - 150 mg/dL Cholesterol 146 0 - 200 mg/dL HDL 61 >=40 mg/dL LDL Cholesterol 65 0 - 100 mg/dL Blood Venous blood specimen / Unknown Historical Provider LAB BLOOD ORDERABLES Roseline l Result * [facility] SCREENING DIGITAL (02/27/2021 2:52 PM EDT) Anatomical Region Laterality Modality Mammography 02/27/2021 1:44 PM EDT Narrative 02/27/2021 2:[address] [facility] Diagnostic Imaging Department [address] [place] [address] Patient: ??COLON,CLAUDINE M ?/Age/Sex: 1970 - 51 - F Unit#: ??[id number] ? Location/Status: ??SPDIMAM/REG CLI ? Mnemonic/Ordering Site: ??DIGSC/SPMAM Ordering Physician: ??KONG MCDONOUGH PA-C Thelma Screening Digital - 02/27/21 - 1426 EXAM: [facility] Screening Digital EXAM DATE AND TIME: 02/27/2021 2:28 PM HISTORY: ??Screening. Greater than 100 pound weight gain since previous mammogram. Sister had breast carcinoma at age 58. COMPARISON: ??08/29/03 TECHNIQUE: CC and MLO views of both breasts were obtained using full field digital mammography. Bilateral digital breast tomosynthesis was performed in the MLO projection. Computer aided detection with the [employer] was employed. TISSUE DENSITY: b. There are [...] Routine screening mammogram BILATERAL in 1 year. [id number], [id number] 3342F, 7025F Dictating Physician: ??GALILEA CR MD Electronically Signed by: ??GALILEA CR MD Dic Date/Time: ??02/27/21 1451 Sign date/Time: ??02/27/21 1452 Procedure Note Galilea Cr MD - 07/24/[address] [facility] Diagnostic Imaging Department [address] [place] [phone] Patient: CLAUDINE HERNANDEZ Adryan BurgosB./Age/Sex: 1970 - 51 - F Unit#: [id number] [facility] Mnemonic/Ordering Site: [facility] Ordering Physician: KONG MCDONOUGH PA-C [facility] Screening Digital - 02/27/21 - 1427 EXAM: [facility] Screening Digital EXAM DATE AND TIME: 02/27/2021 2:28 PM HISTORY: Screening. Greater than 100 pound weight gain since previous mammogram. Sister had breast carcinoma at age 58. COMPARISON: 08/29/03 TECHNIQUE: CC and MLO views of both breasts were obtained using fullfield digital mammography. Bilateral digital breast tomosynthesis was performedin the MLO projection. Computer aided detection with the [employer] employed. TISSUE DENSITY: b. There are scattered [...] Routine screening mammogram BILATERAL in 1 year. 20616, 27980 3342F, 7025F Dictating Physician: GALILEA CR MD Electronically Signed by: GALILEA CR MD Dic Date/Time: 02/27/21 1451 Sign date/Time: 02/27/21 145 Kong VILLAGOMEZ IMG BI PROCEDURES Final Result from Last 3 Months or Most Recently Relevant to Health Maintenance Insurance MEDICAID - [place] Care Teams Claims Supervisor Relationship Specialty Start Date End Date Ellen Valladares MD [address] [phone] PCP - General 01/14/24
--- OUTSIDE RECORDS SUMMARY | 2024-09-28 17:33 | XMS_ITS | Encounter Summary ---
Author Organization [employer] [facility] Address [address] [facility] 7t [place] [address] Care Team Providers Care Gallery Manager Name Role Phone Ellen Valladares MD Primary Care Provide r Encounter Details Date Type Department Care Team (Latest Contact Info) Description 05/20/2022 Abstract [facility] CONVERSIONS Dental, Provider, DDS Social History Tobacco [...] Description 11/18/2024 1:15 PM EDT Office Visit [facility] MEDICINE [address] [place] [phone] Ellen Valladares MD [address] [place] [address] 12/14/2024 3:15 PM EDT Office Visit [facility] MEDICINE [address] [place] [address] Ellen Valladares MD [address] [place] [address] documented as of this encounter Visit Diagnoses Not on filedocumented in this encounter Care Teams Gallery Manager Relationship Specialty Start Date End Date Ellen Valladares MD [address] [place] [address] PCP - General Family Medicine 10/03/21 documented as of this encounter
--- OUTSIDE RECORDS SUMMARY | 2024-09-28 17:33 | XMS_ITS | Encounter Summary ---
Author Organization [employer] Address [address] [facility] 7t [place] [address] Care Team Providers Care Analysis Internship Name Role Phone Ellen Valladares MD Primary Care Provide r Reason for Referral * Consultation (Routine) - Authorized Specialty Diagnoses / Procedures Referred By Naman t Referred To Contact Vascular Surgery Diagnoses Vascular insufficiency Ellen Valladares MD [address] [place] [address] Phone: tel: fax: [facility]ascular Surgeons [address] [facility] [address] [place] [address] Phone: tel: fax: Referral ID Status Reason Start Date Expiration Date Visits Requested Visits Authorized [id number] Authorized Specialty Services Required 07/13/2025 6 6 Reason for Visit * Reason Onset Date Comments callback requested 07/05/2024 PT-1 07/05/2024 A PT-1 [id number] has been submitted on your behalf through the [employer] Customer Web Portal ([employer]). (Cardiology)A PT-1 [id number] has been submitted on your behalf through the [employer] Customer quickhuddle Portal ([employer]). ([facility]) Encounter Details Date Type Department Care Team (Late st Contact Info) Description 07/05/2024 Telephone [facility] MEDICINE [address] [place], [place] [phone] Ellen Valladares MD [address], [place] [phone] callback requested; PT-1 (A PT-1 [id number] has been submitted on your behalf through the [employer] quickhuddle Portal ([employer]). (Cardiology)/A PT-1 [id number] has been submitted on your behalf through the [employer] Portal ([employer]). ([facility])) Social History Tobacco Use Types Packs/Day Years [...] - 07/06/2024 10:52 AM EST A PT-1 [id number] has been submitted on your behalf through the [employer] Web Portal ([facility]).(Cardiology Office) A PT-1 [id number] has been submitted on your behalf through the [employer] quickhuddle Portal ([employer]).([facility]) * Telephone Encounter - Iraida Schultz RN - 07/05/2024 12:03 PM EST TC placed to patient [phone] in regards to below message. Patient reports she had a positive HORACE, and was referred to a executive administrative asst but has not heard anything regarding the referral. Patient wants a status update (referral placed 05/26/24). Patient would like to know what office she is being referred to. Please review and advise. Thank you! Patient also reports she needs PT1 for: Cardiology office [address] [place] [address] [facility] [address] [place] [address] [facility] [address] [place] [address] Patient reports she has a cardiology appointment on 07/14/24, RN advised patient she will need to find transportation to this appointment as PT1 takes approx 2 weeks for a location to be added otherwise she will need to call office and R/X appointment. Patient also reports she has a dental appointment at [facility] on 07/16/24 however also informed [...] referral to be sent to fax number [phone]. Callback number [phone] documented in this encounter Plan of Treatment Upcoming Encounters Date Type Department Care Team (Late st Contact Info) Description 11/18/2024 1:15 PM EDT Office Visit [facility] MEDICINE [address] [place] [phone] Ellen Valladares MD [address] [place] [address] [phone] 12/14/2024 3:15 PM EDT Office Visit [facility] MEDICINE [address] [place] [address] [phone] Ellen Valladares MD [address] [place] [address] [phone] Scheduled Referrals Name Type Priority Associated Diagnoses [...] documented as of this encounter Care Teams Analysis Internship Relationship Specialty Start Date End Date Ellen Valladares MD [address] [place] [address] PCP - General Family Medicine 10/03/21 documented as of this encounter
--- OUTSIDE RECORDS SUMMARY | 2024-09-28 17:33 | XMS_ITS | Encounter Summary ---
Author Organization [employer] Address [address] [place] [address] [place], [place] [address] Care Team Providers Care Electric Train Driver Name Role Phone Ellen Valladares MD Primary Care Provide r Reason for Visit * Reason Onset Date Comments PT1 07/01/2022 Encounter Details Date Type Department Care Team ([facility] st Contact Info) Description 07/01/2022 Telephone [facility] MEDICINE [address] [place] [address] Ellen Valladares MD [address] [place] [address] PT1 Social History Tobacco Use Types Packs/Day [...] 19, 2022 Time:12:30 Pm/ 9:20 AM address: [address] [place] [address] specialty:Work Order Clerk # visits: bread pan greaser:1 Wheelchair: N/A PT1 Date:Jun Time:10:30 Am address:[address] [place] [address] specialty: Vascular Xray # visits: bread pan greaser:1 Wheelchair:N/A PT1 Date:Jun Time: 3:00PM address:[address] [facility] Specialty: Vascular # visits: bread pan greaser: 1 Wheelchair: N/A PT1 Date:TBD Time:TBD address:[address] [facility] specialty:Ortho # visits: bread pan greaser:1 Wheelchair: N/A PT1 Date: Jul 15, 2022 Time:11:00 Am address:[address] [facility] specialty:Ortho Xray # visits: bread pan greaser:1 Wheelchair:N/A * Telephone Encounter - Zamzam Sampson - 07/02/2022 11:08 AM EST TC from patient calling in regards to PT1 approval. Padding Machine Operator let patient know it takes 7-10 days and letter will be mailed out. Patient understood. * Telephone Encounter - Ilya Sampson - 07/01/2022 12:21 PM EST Tc from pt requesting pt1 Location: [address] [place] [address] Specialty: Time: 11 am Date: 07/03/22 Scallop Cutter Machine: yes Wheelchair access n/a Location: [address] [place] [address] Specialty: Time: 10 am Date: 07/11/22 Scallop Cutter Machine: yes Wheelchair access n/a Location: [address] [place]ir [place] [address] Specialty: Time:12:30 pm Date: 07/11/22 Scallop Cutter Machine: yes Wheelchair access n/a Location: [address] [place]ir [place] [address] Specialty: alistair theodore Time:07/15/22 Date: 11:30 am Scallop Cutter Machine: yes Wheelchair access n/a Location: [address] [place] [address] Specialty: Time: 10:30 am Date: 07/18/22 Scallop Cutter Machine: yes Wheelchair access n/a Location: [address] [place]ir [place] [address] Specialty: Time: 09:30 am Date: 07/19/22 Scallop Cutter Machine: yes Wheelchair access n/a Location: [address] [place]ir [place] [address] Specialty: Time 3pm Date: 07/23/22 Scallop Cutter Machine: yes Wheelchair access n/a documented in this encounter Plan of Treatment Upcoming Encounters Date Type Department Care Team (Late st Contact Info) Description 11/18/2024 1:15 PM EDT Office Visit [facility] MEDICINE [address] [place] [phone] Ellen Valladares MD [address] [place] [address] 12/14/2024 3:15 PM EDT Office Visit [facility] MEDICINE [address] [place] [address] Ellen Valladares MD [address] [place] [address] [phone] documented as of this encounter Visit Diagnoses Not on filedocumented in this encounter Care Teams Electric Train Driver Relationship Specialty Start Date End Date Ellen Valladares MD [address] [place] [address] [phone] PCP - General Family Medicine 10/03/21 documented as of this encounter
--- OUTSIDE RECORDS SUMMARY | 2024-09-28 17:33 | XMS_ITS | Encounter Summary ---
Author Organization [employer] [facility] Address [address] [place] [address] 7t [place] [address] Care Team Providers Care Design Inserter Name Role Phone Ellen Valladares MD Primary Care Provide r Reason for Visit * Reason Comments Med Refill Encounter Details Date Type Department Care Team (Late Contact Info) Description 02/05/2023 Refill [facility] MEDICINE [address] [place] [address] [phone] Idalia Barnett MD [address] [place], [place] [phone] Type 2 diabetes mellitus with other specified complication, with long-term current use of insulin ([facility]) Social History Tobacco Use Types Packs/Day Years [...] Encounters Date Type Department Care Team (Late Contact Info) Description 11/18/2024 1:15 PM EDT Office Visit [facility] MEDICINE [address] [place] [address] [phone] Ellen Valladares MD [address] [place] [address] 12/14/2024 3:15 PM EDT Office Visit [facility] MEDICINE [address] [place], [place] [phone] Ellen Valladares MD [address] [place] [address] documented as of this encounter Visit Diagnoses Diagnosis Type 2 diabetes mellitus with other specified complication, with long-term current use of insulin ([facility]) documented in this encounter Additional Health Concerns Assessment Noted Time PHQ-9 Depression Total Score: 0 08/16/19 23 10:02 AM EST documented as of this encounter Care Teams Design Inserter Relationship Specialty Start Date End Date Ellen Valladares MD [address] [place] [address] PCP - General Family Medicine 10/03/21 documented as of this encounter
--- OUTSIDE RECORDS SUMMARY | 2024-09-28 17:33 | XMS_ITS | Encounter Summary ---
Author Organization [employer] Address [address] [facility] 7t [place] [address] Care Team Providers Care Fumigator And Sterilizer Name Role Phone Ellen Valladares MD Primary Care Provide r Reason for Visit * Reason Onset Date Comments Appointment Request 08/18/2024 Encounter Details Date Type Department Care Team ([facility] Contact Info) Description 08/18/2024 Telephone [facility] MEDICINE [address] [place], [place] [phone] Ellen Valladares MD [address] [place] [address] Appointment Request Social History Tobacco Use Types [...] Description 11/18/2024 1:15 PM EDT Office Visit [facility] MEDICINE [address] [place] [address] Ellen Valladares MD [address] [place] [phone] 12/14/2024 3:15 PM EDT Office Visit [facility] MEDICINE [address] [place] [address] Ellen Valladares MD [address] [place] [address] documented as of this encounter Visit Diagnoses Not on filedocumented in this encounter Additional Health Concerns Assessment Noted Time PHQ-9 Depression Total Score: 9 05/18/20 3:59 PM EDT documented as of this encounter Care Teams Fumigator And Sterilizer Relationship Specialty Start Date End Date Ellen Valladares MD [address] [place] [address] PCP - General Family Medicine 10/03/21 documented as of this encounter
--- OUTSIDE RECORDS SUMMARY | 2024-09-28 17:33 | XMS_ITS | Encounter Summary ---
Author Organization [employer] Address [address] [facility] 7t [place] [address] Care Team Providers Care Jammer Operator Name Role Phone Ellen Valladares MD Primary Care Provide r Reason for Visit * Reason Onset Date Comments Med Refill 09/27/2024 Encounter Details Date Type Department Care Team ([facility] st Contact Info) Description 09/27/2024 Refill [facility] MEDICINE [address] [place], [place] [phone] Ellen Valladares MD [address] [place] [address] Vitamin B12 deficiency; Vitamin D deficiency; Mixed anxiety and depressive disorder Social History Tobacco Use Types Packs/Day Years [...] encounter Miscellaneous Notes * Telephone Encounter - Katty Escalante - 09/27/2024 3:30 PM EST TC from pt requesting medication refill. Medications needing refill : B Complex Vitamins (vitamin B complex) tablet hydrOXYzine HCl (Atarax) 50 MG tablet cyanocobalamin (Vitamin B-12) 100 MCG tablet cholecalciferol (Vitamin D-3) 50 MCG (1999 UT) capsule To be sent to: [place], [place] - [address] [place] [address] 102 2 documented in this encounter Plan of Treatment Upcoming Encounters Date Type Department Care Team (Late st Contact Info) Description 11/18/2024 1:15 PM EDT Office Visit [facility] MEDICINE [address] [place] [address] [phone] Ellen Valladares MD [address] [place] [address] 12/14/2024 3:15 PM EDT Office Visit [facility] MEDICINE [address] [place] [address] [phone] Ellen Valladares MD [address] [place] [address] [place] [address] documented as of this encounter Visit Diagnoses Diagnosis Vitamin B12 deficiency Other B-complex deficiencies Vitamin D deficiency Mixed anxiety and depressive disorder Dysthymic disorder documented in this encounter Additional Health Concerns Assessment Noted Time PHQ-9 Depression Total Score: 9 05/18/20 24 3:59 PM EDT documented as of this encounter Care Teams Jammer Operator Relationship Specialty Start Date End Date Ellen Valladares MD [address] [place] [address] PCP - General Family Medicine 10/03/21 documented as of this encounter
--- OUTSIDE RECORDS SUMMARY | 2024-09-28 17:33 | XMS_ITS | Encounter Summary ---
Author Organization [employer] Address [address] [facility] 7t [place] [address] Care Team Providers Care Ammonia Box Operator Name Role Phone Ellen Valladares MD Primary Care Provide r Reason for Visit * Reason Onset Date Comments rs appt/no show 05/17/2024 Encounter Details Date Type Department Care Team ([facility] Contact Info) Description 05/17/2024 Telephone [facility] D[facility] [address] [place] [address] Araceli Chua, ESTHELA [address] [place] [address] rs appt/no show Social History Tobacco Use [...] called in looking to schedule appt for sabianism. Last appt 05/06 was a no show. Patient has been informed that she will get a call to rescheduled the appt directly from [facility] dental office DR documented in this encounter Plan of Treatment Upcoming Encounters Date Type Department Care Team (Late st Contact Info) Description 11/18/2024 1:15 PM EDT Office Visit [facility] MEDICINE [address] [place] [phone] Ellen Valladares MD [address] [place] [phone] 12/14/2024 3:15 PM EDT Office Visit [facility] MEDICINE [address] [place] [phone] Ellen Valladares MD [address] [place] [address] documented as of this encounter Visit Diagnoses Not on filedocumented in this encounter Additional Health Concerns Assessment Noted Time PHQ-9 Depression Total Score: 0 08/16/19 10:02 AM EST documented as of this encounter Care Teams Ammonia Box Operator Relationship Specialty Start Date End Date Ellen Valladares MD [address] [place] [phone] PCP - General Family Medicine 10/03/21 documented as of this encounter
--- OUTSIDE RECORDS SUMMARY | 2024-09-28 17:33 | XMS_ITS | Encounter Summary ---
Author Organization [employer] Address [address] [facility] 7t [place] [address] Care Team Providers Care Gambling Box Person Name Role Phone Ellen Valladares MD Primary Care Provide r Encounter Details Date Type Department Care Team ([facility] st Contact Info) Description 11/19/[address] [facility] BUSINESS OFFICE [address] [place], [place] [phone] Ellen Valladares MD [address] [place], [place] [phone] Social History Tobacco Use Types Packs/Day Years [...] 11/19/2023 12:45 PM EDT Safety and Incident Wan Support Specialist Donna Smith called and left message to patient requesting call back. Pensionholder Information Clerk left contact information. documented in this encounter Plan of Treatment Upcoming Encounters Date Type Department Care Team (Late st Contact Info) Description 11/18/2024 1:15 PM EDT Office Visit [facility] MEDICINE [address] [place] [phone] Ellen Valladares MD [address] [place] [address] 12/14/2024 3:15 PM EDT Office Visit [facility] MEDICINE [address] [place] [phone] Ellen Valladares MD [address] [place] [address] documented as of this encounter Visit Diagnoses Not on filedocumented in this encounter Additional Health Concerns Assessment Noted Time PHQ-9 Depression Total Score: 0 08/16/19 23 10:02 AM EST documented as of this encounter Care Teams Gambling Box Person Relationship Specialty Start Date End Date Ellen Valladares MD [address] [place] [address] [phone] PCP - General Family Medicine 10/03/21 documented as of this encounter
--- OUTSIDE RECORDS SUMMARY | 2024-09-28 17:33 | XMS_ITS | Encounter Summary ---
Author Organization [employer] Address [address] [facility] 7t [place] [address] Care Team Providers Care Printing Estimator Name Role Phone Ellen Valladares MD Primary Care Provide r Reason for Visit * Reason Onset Date Comments Referral 09/01/2024 Encounter Details Date Type Department Care Team ([facility] st Contact Info) Description 09/01/2024 Telephone [facility] MEDICINE [address] [place], [place] [phone] Ellen Valladares MD [address] [place], [place] [phone] Referral Social History Tobacco Use Types Packs/Day [...] Telephone Encounter - Iraida Schultz RN - 09/01/2024 11:42 AM EST TC placed to patient [phone] in regards to below message. Patient reports she would like to see a kidney specialist d/t having diabetes and wanting to ensure her kidneys are functioning properly. RN reviewed BW from 05/18/24 and advised patient her kidney function was checked and it was WNL. Patient also reports she has an appointment with arthritis tx center on 11/11/24 d/t positive HORACE screen. Patient also reports she missed her podiatry appointment, RN advised patient to call podiatry office to r/s appointment. RN provided patient with phone number to podiatry office. Patient to f/u PRN. * Telephone Encounter - Anali Fernandes - 09/01/2024 11:04 AM EST Tc from pt requesting a referral for a kidney specialist. [place] location. documented in this encounter Plan of Treatment Upcoming Encounters Date Type Department Care Team ([facility] st Contact Info) Description 11/18/2024 1:15 PM EDT Office Visit [facility] MEDICINE [address] [place] [phone] Ellen Valladares MD [address] [place] [address] 12/14/2024 3:15 PM EDT Office Visit [facility] MEDICINE [address] [place] [address] [phone] Ellen Valladares MD [address] [place] [address] documented as of this encounter Visit Diagnoses Not on filedocumented in this encounter Additional Health Concerns Assessment Noted Time PHQ-9 Depression Total Score: 9 05/18/20 24 3:59 PM EDT documented as of this encounter Care Teams Printing Estimator Relationship Specialty Start Date End Date Ellen Valladares MD [address] [place] [phone] PCP - General Family Medicine 10/03/21 documented as of this encounter
--- OUTSIDE RECORDS SUMMARY | 2024-09-28 17:33 | XMS_ITS | Encounter Summary ---
Author Organization [employer] Address [address] [facility] 7t [place] [address] Care Team Providers Care Power Electronics Research Engineer Name Role Phone Ellen Valladares MD Primary Care Provide r Reason for Visit * Reason Onset Date Comments October08/31/2024 Encounter Details Date Type Department Care Team ([facility] st Contact Info) Description 08/31/2024 Telephone [facility] MEDICINE [address] [place], [place] [phone] Mansoor Sampson [place] OCTOBER RECALL Social History Tobacco Use Types Packs/Day Years [...] Telephone Encounter - Mansoor Sampson [place] - 08/31/2024 1:10 PM EST TC- Patient to schedule an appt (October) with [facility]arc[facility] to call back to sche appt.Mailed recall letter. documented in this encounter Plan of Treatment Upcoming Encounters Date Type Department Care Team (Late st Contact Info) Description 11/18/2024 1:15 PM EDT Office Visit [facility] MEDICINE [address] [place] [phone] Ellen Valladares MD [address] [place] [address] 12/14/2024 3:15 PM EDT Office Visit [facility] MEDICINE [address] [place] [phone] Ellen Valladares MD [address] [place] [address] documented as of this encounter Visit Diagnoses Not on filedocumented in this encounter Additional Health Concerns Assessment Noted Time PHQ-9 Depression Total Score: 9 05/18/20 3:59 PM EDT documented as of this encounter Care Teams Power Electronics Research Engineer Relationship Specialty Start Date End Date Ellen Valladares MD [address] [place] [address] PCP - General Family Medicine 10/03/21 documented as of this encounter
--- OUTSIDE RECORDS SUMMARY | 2024-09-28 17:33 | XMS_ITS | Clinical Summary ---
Author Organization [employer] Address [address] [facility] 7t [place] [address] Care Team Providers Care Oil And Gas Superintendent Name Role Phone Ellen Valladares MD Primary Care Provide r Allergies No known active allergies Medications clonazePAM (KlonoPIN) 0.5 MG tablet TAKE 1/2 TO 1 TABLET BY MOUTH DAILY NEEDED FOR PANIC ATTACK. TO LAST 28 DAYS 023 Active glucagon (Baqsimi One Pack) 3 MG/DOSE nasal powder Administer 1 spray into affected nostril(s). Active ibuprofen 600 MG tablet TAKE 1 TABLET BY MOUTH THREE TIMES A DAY NEEDED FOR PAIN 022 Active Alcohol Swabs (Alcohol Pads) 70 % padsIndications :Type 2 diabetes mellitus with other specified complication, with long-term current use of insulin ([facility]) See Instructions, # 1 box, Refills 1, Tot. Refills 1, Maintenance, Diagnosis: 11.9 Length of need: 99 months, 03/12/17 17:46:25, Compound 100 each 023 Active Continuous Blood Gluc Supervisor Travel Trailer (FreeStyle Sayda 14 Day Bradford) deviceIndicatio ns:Type 2 diabetes mellitus with other specified complication, with long-term current use of insulin (CMS/HCC) Place 1 Device on the skin every 14 (fourteen) days. 4 each 023 Active Continuous Blood Gluc Sensor (FreeStyle Sayda 2 Sensor) miscIndications :Type 2 diabetes mellitus with other specified complication, with long-term current use of insulin (CMS/HCC) DIRECTED 4 each 023 Active glucose blood (FreeStyle Precision Rony Test) test stripIndication s:Type 2 diabetes mellitus with other specified complication, with long-term current use of insulin ([facility]) Use to test BG with Freestyle Sayda when prompted 1-2X/D UD Dx. E11.65 Freestyle Rony Strips 100 each 023 Active Melatonin ER 10 MG tablet controlled-rele aseIndications: Mixed anxiety and depressive disorder TAKE 1 TABLET BY MOUTH EVERY DAY AT BEDTIME NEEDED FOR SLEEP *NOT COVERED* 90 tablet 023 Active metFORMIN (Glucophage) 1000 MG tabletIndicatio ns:Type 2 diabetes mellitus with other specified complication, with long-term current use of insulin (CMS/HCC) Take 1 tablet (1,000 mg) by mouth 2 times daily. 180 tablet 023 Active oxybutynin (Ditropan) 5 MG tabletIndicatio ns:Mixed stress and urge urinary incontinence Take 1 tablet (5 mg) by mouth 2 times daily. 180 tablet 023 Active sodium chloride (Rogers Nasal Lismore) 0.65 % nasal sprayIndication s:Viral URI 1-2 sprays on each nostril every 2-3 hours as needed for nasal congestion 30 mL 1 023 Active Blood Pressure kitIndications: Essential hypertension 1 kit in the morning. 1 kit 023 Active semaglutide (Ozempic) 2 MG/1.5ML solution pen-injectorInd ications:Type 2 diabetes mellitus with hyperglycemia, with long-term current use of insulin ([facility]) Inject 0.5 mg under the skin 1 (one) time per week. 4 each 3 024 Active Lantus SoloStar 100 UNIT/ML penIndications: Type 2 diabetes mellitus with other specified complication, with long-term current use of insulin ([facility]) INJECT 50 UNITS SUBCUTANEOUSLY EVERY EVENING 3 mL 11 024 Active insulin pen needle (BD Pen Needle Janeen 2nd Gen) 32G x 4 mm miscIndications :Type 2 diabetes mellitus with other specified complication, with long-term current use of insulin (CMS/HCC) USE DIRECTED DAILY 100 each 3 024 Active acetaminophen (Tylenol 8 Hour) 650 MG ER tabletIndicatio ns:Polyarthralg ia Take 2 tablets (1,300 mg) by mouth every 8 (eight) hours if needed for mild pain. Do not crush, chew, or split. 30 tablet 1 Active Aspirin Low Dose 81 MG EC tabletIndicatio ns:Type 2 diabetes mellitus with other specified complication, with long-term current use of insulin (CMS/HCC) Take 1 tablet (81 mg) by mouth Once per day. 90 tablet 3 Active atorvastatin (Lipitor) 20 MG tabletIndicatio ns:Dyslipidemia Take 1 tablet (20 mg) by mouth Once per day. 90 tablet 3 024 2024 Active buPROPion XL (Wellbutrin XL) 150 MG 24 hr tabletIndicatio ns:Mixed anxiety and depressive disorder Take 1 tablet (150 mg) by mouth Once per day. 90 tablet 3 024 Active FLUoxetine (PROzac) 20 MG capsuleIndicati ons:Mixed anxiety and depressive disorder Take 1 capsule (20 mg) by mouth in the morning. 90 capsule 3 024 Active hydroCHLOROthia zide (HYDRODiuril) 25 MG tabletIndicatio ns:Essential hypertension Take 1 tablet (25 mg) by mouth Once per day. 30 tablet 11 024 2024 Active B Complex Vitamins (vitamin B complex) tabletIndicatio ns:Vitamin B12 deficiency Take 1 tablet by mouth Once per day. 90 tablet 3 025 Active cholecalciferol (Vitamin D-3) 50 MCG (2000 UT) capsuleIndicati ons:Vitamin D deficiency take 1 capsule by Oral route every day 90 capsule 3 025 Active hydrOXYzine HCl (Atarax) 50 MG tabletIndicatio ns:Mixed anxiety and depressive disorder Take 1 tablet (50 mg) by mouth 2 times daily. 30 tablet 1 025 Active cyanocobalamin (Vitamin B-12) 100 MCG tabletIndicatio ns:Vitamin B12 deficiency take one daily 90 tablet 1 025 Active clotrimazole (Lotrimin) 1 % cream Apply topically 2 times daily for 28 days. 30 g 2 025 2024 Active B Complex Vitamins (vitamin B complex) tabletIndicatio ns:Vitamin B12 deficiency Take 1 tablet by mouth in the morning. 90 tablet 3 023 2024 Discontinued(R eorder (will not trigger notification to Pharmacy)) cholecalciferol (Vitamin D-3) 50 MCG (1999 UT) capsuleIndicati ons:Vitamin D deficiency take 1 capsule by Oral route every day 90 capsule 3 023 2024 Discontinued(R eorder (will not trigger notification to Pharmacy)) cyanocobalamin (Vitamin B-12) 100 MCG tabletIndicatio ns:Vitamin B12 deficiency take one daily 90 tablet 1 023 2024 Discontinued(R eorder (will not trigger notification to Pharmacy)) hydrOXYzine HCl (Atarax) 50 MG tabletIndicatio ns:Mixed anxiety and depressive disorder Take 1 tablet (50 mg) by mouth 2 times daily. 30 tablet 1 024 2024 Discontinued(R eorder (will not trigger notification to Pharmacy)) Active Problems Problem Noted Date Diagnosed Date [...] right foot 01/02/2015 Overview (08/16/2022): 12/28/14 at [facility]: Xray of R foot shows no acute abnormality. Xray of ankle shows Small heel spur noted, in typical location, at site of insertion of plantar aponeurosis. Chronic bilateral low back pain 01/02/2015 Peripheral edema 12/08/2014 Mixed anxiety and depressive disorder 08/27/2012 Vitamin D deficiency 12/25/2011 Encounters Date Type Department Care Team Description 09/28/2024 1:45 PM EST Procedure Visit [address] [address] Lina Danielle CNM Cervical cancer screening (Primary Dx); Breast cancer screening by mammogram; Screening examination for venereal disease; Pelvic pain; Family history of breast cancer in sister; Tinbernie salazaruris 09/28/2024 Travel 09/27/[address] [address] Ellen Valladares MD Vitamin B12 deficiency; Vitamin D deficiency; Mixed anxiety and depressive disorder 09/01/[address] [address] Ellen Valladares MD Referral 08/31/[address] [address] Mansoor Sampson [place] October08/19/[address] [address] Mansoor Sampson [place] Appointment Request 08/18/[address] [address] Ellen Valladares MD Appointment Request 08/18/[address] [address] Ellen Valladares MD Results 08/11/2024 Orders Only GENERIC EXTERNAL DATA DEPARTMENT Provider, Generic External Data 08/04/[address] [address] Ellen Valladares MD Referral 07/22/[address] [facility] MEDICINE [address] [place] [address] Ellen Valladares MD 07/15/[address] [facility] CHC ADULT DENTAL [address] [place] [address] Cheryl Wall cx rs appt 07/08/2024 Telephone [facility] [address] [place] [address] Mansoor Sampson [place] 07/05/[address] [facility] MEDICINE [address] [place] [address] Ellen Valladares MD callback requested; PT-1 (A PT-1 [id number] has been submitted on your behalf through the [employer] Customer Web Portal ([employer]). (Cardiology)/A PT-1 [id number] has been submitted on your behalf through the [employer] Portal ([facility]). ([facility])) from Last 3 Months Immunizations Name Administration Dates Next Due Hep B, adult 05/14/2016,12/19/2015,10/17/2015 Influenza injectable quadriv alent preservative free 09/03/2023,08/16/2022,04/26/2021 Influenza, IIV3, injectable 06/05/2018,1 ,05/11/2015,05/06 Influenza, seasonal, injecta ble, preservative free 05/18/2024 Pneumococcal Conjugate PCV 13 12/19/2015 Pneumococcal Polysaccharide PPSV23 03/07/2020 Tdap 11/19/2018,01/20/2013 Zoster, Recombinant 03/07/2020 Family History Medical History Relation Name Comments Prostate cancer Maternal Grandfather Bone cancer Maternal Grandmother Breast cancer Sister Relation Name Status Comments Maternal Grandfather Maternal Grandmother Sister Social History Tobacco Use Types Packs/Day Years [...] Mass Index 40.68 09/28/2024 1:17 PM EST Plan of Treatment Upcoming Encounters Date Type Department Care Team (Late st Contact Info) Description 11/18/2024 1:15 PM EDT Office Visit [facility] MEDICINE [address] [place] [address] Ellen Valladares MD [address] [place], [place] [phone] 12/14/2024 3:15 PM EDT Office Visit [facility] MEDICINE [address] [place] [address] Ellen Valladares MD [address] [place], [place] [phone] Health Maintenance Due Date Last Done Comments [...] 10/06/2019 Depression Monitoring (PHQ-9) 11/16/2024 05/18/2024, 05/18/2024 Pneumococcal Vaccine: 50+ Years (3 of 3 - PCV20 or PCV21) 03/07/2025 03/07/2020, 12/19/2015 Dental X-Ray: Full Mouth 04/27/2025 04/26/2022 Depression Screening 05/18/2025 05/18/2024, 05/18/20 Diabetes: Urine Protein Screening 05/18/2025 05/18/2024, 06/09/2023, 02/03/2023, Additional history exists Lipid Panel 05/18/2025 05/18/2024, 05/28, 02/03/2023, Additional history exists Tobacco Screening 05/18/2025 05/18/2024 DTaP/Tdap/Td Vaccines (3 - Td or Tdap) 11/19/2028 11/19/2018, 01/20/2013 RSV Patients and Patients Aged 60 years [...] hyperglycemia, with long-term current use of insulin ([facility]) Essential hypertension HIV 1/2 ANTIGEN/ANTIBODY, FOURTH GENERATION W/RFL Routine 05/18/2024 3:05 PM EDT Type 2 diabetes mellitus with hyperglycemia, with long-term current use of insulin ([facility]) Essential hypertension ALBUMIN, RANDOM URINE W/CREATININE Routine 05/18/2024 3:05 PM EDT Type 2 diabetes mellitus with hyperglycemia, with long-term current use of insulin ([facility]) LIPID PANEL, STANDARD Routine 05/18/2024 3:05 PM EDT Type 2 diabetes mellitus with hyperglycemia, with long-term current use of insulin ([facility]) Essential hypertension POCT GLYCATED HEMOGLOBIN, TOTAL Routine 05/18/2024 2:15 PM EDT Type 2 diabetes mellitus with hyperglycemia, with long-term current use of insulin ([facility]) BITEWING - SINGLE RADIOGRAPHIC IMAGE Routine 05/09/2023 1:00 PM EDT PROPHYLAXIS - ADULT Routine 05/20/2022 1 2:00 AM EDT INTRAORAL - COMPLETE SERIES OF RADIOGRAPHIC IMAGES Routine 04/26/2022 12:00 AM EDT COMPREHENSIVE ORAL EVALUATION - NEW OR ESTABLISHED PATIENT Routine 04/26/2022 12:00 AM EDT HM PAP/HPV Routine 10/06/2019 1:37 PM EDT from Last 3 Months or Most Recently Relevant to Health Maintenance Results * (ABNORMAL) Glucose, Whole Blood (08/11/2024 1:38 PM EST) Glucose, Whole Blood 125(H) 60 - 115 mg/dL [facility] Comment:METER #: [id number] 5Testing performed in the Endocrinology Department [address] , [address], [place]. 08/11/2024 1:38 PM EST 08/11/2024 1:42 PM EST us Generic External Data Provider LAB BLOOD ORDERAB LES Final Result [facility] [address] [place] [address] [phone] * Albumin, Random Urine W/Creatinine (05/18/2024 3:05 PM EDT) Creatinine, Urine 120.83 mg/dL [facility] Microalbumin Urine 11.0 mg/L [facility] Microalbum Creatinine Ratio Ur 9.1 <30 ug/mg cr [facility] Comment:Albumin/Creatinine R atio Reference Ranges: Normal: < 30 ug/mg creatinine Microalbuminuria: 30 - 300 ug/mg creatinineClinical Albuminuria: > 300 ug/mg creatinine Urine (Urine, Random) 05/18/2024 3:05 PM EDT 05/18/2024 4:38 PM EDT us Ellen Collier MD LAB URINE ORDERABLES Final Result Performing Organization Address [facility] Co de Phone Number [facility] [address] [place] [address] [phone] * Hepatitis C Antibody with Reflex to HCV, RNA, Quantitative, Real-Time PCR (05/18/2024 3:05 PM EDT) Pathologist [facility] Hepatitis C Antibody Nonreactive Nonreactive [facility] Comment:Antibodies to HCV no t detected; does not exclude early acuteHCV infection. Blood Venous blood specimen / Unknown 05/18/2024 3:05 PM EDT 05/18/2024 4:36 PM EDT us Ellen Collier MD LAB BLOOD ORDERABLES Final Result Performing Organization Address [facility]/ZIP Co de Phone Number [facility] [address] [place] [address] [phone] * HIV-1/2 Antigen and Antibodies, Fourth Generation, with Reflexes (05/18/2024 3:05 PM EDT) HIV AB/AG Nonreactive Nonreactive [facility] Comment:HIV-1 p24 Ag and/or HIV-1/HIV-2 Ab not detected.A test result that is nonreactive does not exclude thepossibility of exposure to or infection with HIV-1 and/orHIV-2. Nonreactive results in this assay for individualswith prior exposure to HIV-1 and/or HIV-2 may be due toantigen and antibody levels that are below the limit ofdetection of this assay.The [employer] PowerniGhost HIV Ag/Ab Combo assay result andsupplemental assay results should be interpreted inconjunction with the patient's clinical presentation,history and other laboratory results. If the results areinconsistent with clinical evidence, additional testing issuggested to confirm the result. Blood Venous blood specimen / Unknown 05/18/2024 3:05 PM EDT 05/18/2024 4:36 PM EDT us Ellen Collier MD LAB BLOOD ORDERABLES Final Result [facility] [address] [place] [address] [phone] * (ABNORMAL) Lipid Panel, Standard (05/18/2024 3:05 PM EDT) Triglycerides 201(H) <150 mg/dL [facility] Comment:Desirable Triglyceri de: less than 150 mg/dLBorderline High Triglyceride 150-199 mg/dLHigh Triglyceride: 200-499 mg/dLVery High Triglyceride: greater than or equal to 5OO mg/dL Cholesterol 161 <200 mg/dL [facility] Comment:Desirable Cholestero l: less than 200 mg/dLBorderline High Cholesterol: 200-239 mg/dLHigh Cholesterol: greater than 239 mg/dL LDL Cholesterol Calculated 72 <100 mg/dL [facility] Comment:Desirable LDL: less than 100 mg/dLNear Optimal/Above Optimal LDL: 110- 129 mg/dLBorderline High LDL: 130-159 mg/dLHigh LDL: 160-189 mg/dLVery High LDL: greater than or equal to 190 mg/dL HDL Cholesterol 49 >40 mg/dL [facility] Comment:Desirable HDL: great er than 40 mg/dL Note: This HDL assay may give artificially low results in patients with liver disease. Blood Venous blood specimen / Unknown 05/18/2024 3:05 PM EDT 05/18/2024 4:36 PM EDT Ellen Collier MD LAB BLOOD ORDERABLES Final Result [facility] [address] [place] [address] [phone] * (ABNORMAL) POCT HGB A1C (05/18/2024 2:15 PM EDT) Hemoglobin A1C 8.6(A) 4.0 - 6.0 % QC Media Lot # [id number] Lot# Expiration Date Blood 05/18/2024 2:15 PM EDT Ellen Collier MD POINT OF CARE TEST EN TER/EDIT ORDERABLES Final Result * HM PAP/HPV (10/06/2019 1:37 PM EDT) Historical Provider HEALTH MAINTENANCE Final Result from Last 3 Months or Most Recently Relevant to Health Maintenance Insurance [facility] C[facility] [place] ST[place] ADULT Care Teams Oil And Gas Superintendent Relationship Specialty Start Date End Date Ellen Valladares MD [address] [place] [phone] PCP - General Family Medicine 10/03/21
--- OUTSIDE RECORDS SUMMARY | 2024-09-28 17:33 | XMS_ITS | Encounter Summary ---
Author Organization [employer] Address [address] [facility] 7t [place] [address] Care Team Providers Care Field Ring Assembler Name Role Phone Ellen Valladares MD Primary Care Provide r Reason for Visit * Reason Onset Date Comments PT1 03/04/2024 Encounter Details Date Type Department Care Team ([facility] st Contact Info) Description 03/04/2024 Telephone [facility] MEDICINE [address] [place], [place] [phone] Ellen Valladares MD [address] [place], [place] [phone] PT1 Social History Tobacco Use Types Packs/Day [...] Y/N: Yes Provider name or facility name: [facility] Facility Address: [address] [place] [address] Escort needed: Y/N: Yes Do you have a wheelchair: Y/N: No Visits: All Future Visits documented in this encounter Plan of Treatment Upcoming Encounters Date Type Department Care Team ([facility] Contact Info) Description 11/18/2024 1:15 PM EDT Office Visit [facility] MED[facility]INE [address] [place] [phone] Ellen Valladares MD [address] [place] [phone] 12/14/2024 3:15 PM EDT Office Visit [facility] [address] [place] [phone] Ellen Valladares MD [address] [place] [phone] documented as of this encounter Visit Diagnoses Not on filedocumented in this encounter Additional Health Concerns Assessment Noted Time PHQ-9 Depression Total Score: 0 08/16/19 23 10:02 AM EST documented as of this encounter Care Teams Field Ring Assembler Relationship Specialty Start Date End Date Ellen Valladares MD [address] [place] [address] PCP - General Family Medicine 10/03/21 documented as of this encounter
[2024-09-29 08:08] LABS: Syphilis Screen Nonreactive (Nonreactive)
[2024-09-29 08:37] LABS: HIV AB/AG Nonreactive (Nonreactive); HIV Num 1 0.06 S/CO (0.00-0.99)
[2024-10-01 11:49] LABS: TS Negative Control Passed; TS Panel A 0; TS Panel B 1; TS Positive Control Passed; TSpotTB Negative (Negative)
== END 2024-09-28 13:54 | disposition home or self-care (01) ==
LOC: HO.HHCL 13:53
PROVIDERS: Internal Medicine; Visit Provider Advanced Practice Midwife
DX: Z11.3 Encounter for screening for infections with a predominantly sexual mode of transmission (principal); Z11.1 Encounter for screening for respiratory tuberculosis
CPT/HCPCS: 36415; 86481; 86780; 87389; 87491; 87591; 87626; 87661; 88175

== ENCOUNTER 2024-09-28 16:44 | Outpatient (REF) | payer MEDICAID, SELFPAY ==
--- OUTSIDE RECORDS SUMMARY | 2024-09-28 20:20 | XMS_ITS | Encounter Summary ---
Author Organization [employer] [facility] Address [address] [place] [address] 7t [place] [address] Care Team Providers Care Adjunct Professor Of [employer].[place]. History Name Role Phone Ellen Valladares MD Primary Care Provide r Reason for Visit * Reason Comments Med Refill Encounter Details Date Type Department Care Team (Late Contact Info) Description 02/05/2023 Refill [facility] [address] [place] [phone] Idalia Barnett MD [address] [place], [place] [phone] Type 2 diabetes mellitus with other specified complication, with long-term current use of insulin ([facility]) Social History Tobacco Use Types Packs/Day Years [...] Description 11/18/2024 1:15 PM EDT Office Visit [facility] [address] [place] [phone] Ellen Valladares MD [address] [place] [address] 12/14/2024 3:15 PM EDT Office Visit [facility] [address] [place], [place] [phone] Ellen Valladares MD [address] [place] [address] documented as of this encounter Visit Diagnoses Diagnosis Type 2 diabetes mellitus with other specified complication, with long-term current use of insulin ([facility]) documented in this encounter Additional Health Concerns Assessment Noted Time PHQ-9 Depression Total Score: 0 08/16/19 23 10:02 AM EST documented as of this encounter Care Teams Adjunct Professor Of U.S. History Relationship Specialty Start Date End Date Ellen Valladares MD [address] [place] [address] PCP - General Family Medicine 10/03/21 documented as of this encounter
--- OUTSIDE RECORDS SUMMARY | 2024-09-28 20:20 | XMS_ITS | Continuity of Care Document ---
Author Organization [employer] [facility] [place] Address [address] [facility] [address] [place] [address] Phone Care Team Providers Care Truckman Name Role Phone Z-Converted, Provider Unavailable Unavailabl e Advance Directives Directive Yes / No Effective Date File Name No Information Encounters Encounter Description Practice Location Reason(s) For Visit Diagnoses Date Provider Providers Copied on Encounter Luis Cornelius [facility], [address] [place] [address] 2,[address], [place], [place], [id number], [place] tel:[phone] [facility] Routine general medical examination at a health [...]
--- OUTSIDE RECORDS SUMMARY | 2024-09-28 20:20 | XMS_ITS | Encounter Summary ---
Author Organization [employer] Address [address] [facility] [address]t [place] [address] Care Team Providers Care Systems Designer Name Role Phone Ellen Valladares MD Primary Care Provide r Reason for Visit * Reason Onset Date Comments Durable Medical Equipment 06/24/2023 Encounter Details Date Type Department Care Team ([facility] st Contact Info) Description 06/24/[address] [facility] MEDICINE [address] [place], [place] [phone] Ellen Valladares MD [address] [place] [address] Durable Medical Equipment Social History Tobacco Use [...] pt requesting diabetic shoes and stockings. Cesar [address] [place] [address] documented in this encounter Plan of Treatment Upcoming Encounters Date Type Department Care Team (Late st Contact Info) Description 11/18/2024 1:15 PM EDT Office Visit [facility] MEDICINE [address] [place] [phone] Ellen Valladares MD [address] [place] [phone] 12/14/2024 3:15 PM EDT Office Visit [facility] MEDICINE [address] [place] [phone] Ellen Valladares MD [address] [place] [phone] documented as of this encounter Visit Diagnoses Not on filedocumented in this encounter Additional Health Concerns Assessment Noted Time PHQ-9 Depression Total Score: 0 08/16/19 10:02 AM EST documented as of this encounter Care Teams Systems Designer Relationship Specialty Start Date End Date Ellen Valladares MD [address] [place] [address] PCP - General Family Medicine 10/03/21 documented as of this encounter
--- OUTSIDE RECORDS SUMMARY | 2024-09-28 20:20 | XMS_ITS | Encounter Summary ---
Author Organization [employer] Address [address] [facility] [address] Floor [place], [place] Care Team Providers Care Benefits Consultant Name Role Phone Ellen Valladares MD Primary Care Provide r Encounter Details Date Type Department Care Team ([facility] st Contact Info) Description 11/19/2023 Telephone [facility] BUSINESS OFFICE [address] [place], [place] [phone] Ellen Valladares MD [address] [place], [place] [phone] Social History Tobacco Use Types Packs/Day Years [...] 11/19/2023 12:45 PM EDT Safety and Incident Lawyer Probate Donna Smith called and left message to patient requesting call back. Purchasing Intern left contact information. documented in this encounter Plan of Treatment Upcoming Encounters Date Type Department Care Team (Late st Contact Info) Description 11/18/2024 1:15 PM EDT Office Visit [facility] MEDICINE [address] [place] [phone] Ellen Valladares MD [address] [place] [phone] 12/14/2024 3:15 PM EDT Office Visit [facility] MED[facility]INE [address] [place] [phone] Ellen Valladares MD [address] [place] [phone] documented as of this encounter Visit Diagnoses Not on filedocumented in this encounter Additional Health Concerns Assessment Noted Time PHQ-9 Depression Total Score: 0 08/16/19 23 10:02 AM EST documented as of this encounter Care Teams Benefits Consultant Relationship Specialty Start Date End Date Ellen Valladares MD [address] [place] [phone] PCP - General Family Medicine 10/03/21 documented as of this encounter
--- OUTSIDE RECORDS SUMMARY | 2024-09-28 20:20 | XMS_ITS | Encounter Summary ---
Author Organization [employer] Address 75 [facility] 7t [place] [address] Care Team Providers Care Control Systems Technician Name Role Phone Ellen Valladares MD Primary Care Provide r Reason for Visit * Reason Onset Date Comments Med Refill 09/27/2024 Encounter Details Date Type Department Care Team ([facility] st Contact Info) Description 09/27/2024 Refill [facility] [address] [place], [place] [phone] Ellen Valladares MD 230 [place] [address] Vitamin B12 deficiency; Vitamin D deficiency; Mixed [...] (1999 UT) capsule To be sent to: [place], [place] - [address] [place] [address] [phone] documented in this encounter Plan of Treatment Upcoming Encounters Date Type Department Care Team (Late st Contact Info) Description 11/18/2024 1:15 PM EDT Office Visit [facility] [address] [place] [address] [phone] Ellen Valladares MD [address] [place] [address] 12/14/2024 3:15 PM EDT Office Visit [facility] [address] [place] [address] [phone] Ellen Valladares MD [address] [place] [address] [place] [address] documented as of this encounter Visit Diagnoses Diagnosis Vitamin B12 deficiency Other B-complex deficiencies Vitamin D deficiency Mixed anxiety and depressive disorder Dysthymic disorder documented in this encounter Additional Health Concerns Assessment Noted Time PHQ-9 Depression Total Score: 9 05/18/20 24 3:59 PM EDT documented as of this encounter Care Teams Control Systems Technician Relationship Specialty Start Date End Date Ellen Valladares MD 230 [place] [address] PCP - General Family Medicine 10/03/21 documented as of this encounter
--- OUTSIDE RECORDS SUMMARY | 2024-09-28 20:20 | XMS_ITS | Clinical Summary ---
Author Organization 175 [facility] Address 175 [place] [address] Phone Care Team Providers Care Senior Payroll Manager Name Role Phone Ellen Valladares MD [...] A1C Routine 07/25/2022 LIPID PANEL Routine 07/25/2022 [facility] SCREENING DIGITAL Routine 02/27/2021 2:52 PM EDT Encounter for screening mammogram for malignant neoplasm of breast from Last 3 Months or Most Recently Relevant to Health Maintenance Results * Annual BMP Blood Test (07/25/2022) Pathologist [facility] Annual BMP Blood Test Abstracted Historical Provider HEALTH MAINTENANCE Final Result * (ABNORMAL) Hemoglobin A1c (07/25/2022) [facility] Hemoglobin A1C 7.1(A) <=6.5 % Blood Venous blood specimen / Unknown Historical Provider LAB BLOOD ORDERABLES Roseline l Result * Lipid panel (07/25/2022) [facility] LDL/HDL Ratio 2 0 - 4 Triglycerides 101 0 - 150 mg/dL Cholesterol 146 0 - 200 mg/dL HDL 61 >=40 mg/dL LDL Cholesterol 65 0 - 100 mg/dL Blood Venous blood specimen / Unknown Historical Provider LAB BLOOD ORDERABLES Roseline l Result * [facility] SCREENING DIGITAL (02/27/2021 2:52 PM EDT) Anatomical Region Laterality Modality Mammography 02/27/2021 1:44 PM EDT Narrative 02/27/2021 2:52 PM EDT [facility] Diagnostic Imaging Department [address] [place] [address] Patient: ??COLON,CLAUDINE M ?/Age/Sex: 1970 - 51 - F Unit#: ??[id number] ? Location/Status: ??SPDIMAM/REG CLI ? Mnemonic/Ordering Site: ??DIGSC/SPMAM Ordering Physician: ??KONG MCDONOUGH PA-C Thelma Screening Digital - 02/27/21 - 1426 EXAM: [facility] Screening Digital EXAM DATE AND TIME: 02/27/2021 2:28 PM HISTORY: ??Screening. Greater than 100 pound weight gain since previous mammogram. Sister had breast carcinoma at age 58. COMPARISON: ??08/29/03 TECHNIQUE: CC and MLO views of both breasts were obtained using full field digital mammography. Bilateral digital breast tomosynthesis was performed in the MLO projection. Computer aided detection with the [employer] was employed. TISSUE DENSITY: b. There are [...] Routine screening mammogram BILATERAL in 1 year. 56522, 99391 3342F, 7025F Dictating Physician: ??GALILEA CR MD Electronically Signed by: ??GALILEA CR MD Dic Date/Time: ??02/27/21 1451 Sign date/Time: ??02/27/21 1452 Procedure Note Galilea Cr MD - 07/24/2022 [facility] Diagnostic Imaging Department [address] [place] [address] Patient: CLAUDINE HERNANDEZ Adryan BurgosB./Age/Sex: 1970 - 51 - F Unit#: [id number] [facility]Ordering Site: [facility] Ordering Physician: KONG MCDONOUGH PA-C [facility] Screening Digital - 02/27/21 - 1427 EXAM: [facility] Screening Digital EXAM DATE AND TIME: 02/27/2021 2:28 PM HISTORY: Screening. Greater than 100 pound weight gain since previous mammogram. Sister had breast carcinoma at age 58. COMPARISON: 08/29/03 TECHNIQUE: CC and MLO views of both breasts were obtained using fullfield digital mammography. Bilateral digital breast tomosynthesis was performedin the MLO projection. Computer aided detection with the [facility] 7.2-OZ SafeRoomsas employed. TISSUE DENSITY: b. There are scattered [...] Routine screening mammogram BILATERAL in 1 year. 44208, 31900 3342F, 7025F Dictating Physician: GALILEA CR MD Electronically Signed by: GALILEA CR MD Dic Date/Time: 02/27/21 1451 Sign date/Time: 02/27/21 145 Kong VILLAGOMEZ IMG BI PROCEDURES Final Result from Last 3 Months or Most Recently Relevant to Health Maintenance Insurance MEDICAID - [place] Care Teams Senior Payroll Manager Relationship Specialty Start Date End Date Ellen Valladares MD [address] [phone] PCP - General 01/14/24
--- OUTSIDE RECORDS SUMMARY | 2024-09-28 20:20 | XMS_ITS | Encounter Summary ---
Author Organization [employer] Address [address] [place] [address] [place], [place] [address] Care Team Providers Care Welcome Wagon Host/Hostess Name Role Phone Ellen Valladares MD Primary Care Provide r Reason for Visit * Reason Onset Date Comments PT1 07/01/2022 Encounter Details Date Type Department Care Team ([facility] st Contact Info) Description 07/01/2022 Telephone [facility] MEDICINE 230 [place] [address] Ellen Valladares MD 230 [place] [address] PT1 Social History Tobacco Use Types Packs/Day [...] 19, 2022 Time:12:30 Pm/ 9:20 AM address: [address] [place] [address] specialty:Twisting Department End Finder # visits: step finisher:1 Wheelchair: N/A PT1 Date:Jun Time:10:30 Am address:[address] [place] [address] specialty: Vascular Xray # visits: step finisher:1 Wheelchair:N/A PT1 Date:Jun Time: 3:00PM address:[address] [facility] Specialty: Vascular # visits: step finisher: 1 Wheelchair: N/A PT1 Date:TBD Time:TBD address:[address] [facility] specialty:Ortho # visits: step finisher:1 Wheelchair: N/A PT1 Date: Jul 15, 2022 Time:11:00 Am address:[address] [facility] specialty:Ortho Xray # visits: step finisher:1 Wheelchair:N/A * Telephone Encounter - Zamzam Sampson - 07/02/2022 11:08 AM EST TC from patient calling in regards to PT1 approval. [employer] Floor Refinisher let patient know it takes 7-10 days and letter will be mailed out. Patient understood. * Telephone Encounter - Ilya Sampson - 07/01/2022 12:21 PM EST Tc from pt requesting pt1 Location: [address] [place] [address] Specialty: Time: 11 am Date: 07/03/22 Veterinary Science Teacher: yes Wheelchair access n/a Location: [address] [place] [address] Specialty: Time: 10 am Date: 07/11/22 Veterinary Science Teacher: yes Wheelchair access n/a Location: [address] [place]ir [place] [address] Specialty: Time:12:30 pm Date: 07/11/22 Veterinary Science Teacher: yes Wheelchair access n/a Location: [address] [place] [address] Specialty: alistair theodore Time:07/15/22 Date: 11:30 am Veterinary Science Teacher: yes Wheelchair access n/a Location: [address] [place]ir [place]oval [address] Specialty: Time: 10:30 am Date: 07/18/22 Veterinary Science Teacher: yes Wheelchair access n/a Location: [address] [place]ir [place] [address] Specialty: Time: 09:30 am Date: 07/19/22 Veterinary Science Teacher: yes Wheelchair access n/a Location: [address] [place]ir sandoval [address] Specialty: Time 3pm Date: 07/23/22 Veterinary Science Teacher: yes Wheelchair access n/a documented in this encounter Plan of Treatment Upcoming Encounters Date Type Department Care Team (Late st Contact Info) Description 11/18/2024 1:15 PM EDT Office Visit [facility] MEDICINE [address] [place] [phone] Ellen Valladares MD [address] [place] [address] 12/14/2024 3:15 PM EDT Office Visit [facility] MEDICINE [address] [place] [address] Ellen Valladares MD [address] [place] [address] [phone] documented as of this encounter Visit Diagnoses Not on filedocumented in this encounter Care Teams Welcome Wagon Host/Hostess Relationship Specialty Start Date End Date Ellen Valladares MD [address] [place] [address] [phone] PCP - General Family Medicine 10/03/21 documented as of this encounter
--- OUTSIDE RECORDS SUMMARY | 2024-09-28 20:20 | XMS_ITS | Encounter Summary ---
Author Organization [employer] Address 75 [facility] 7t [place] [address] Care Team Providers Care Steam Oven Operator Name Role Phone Ellen Valladares MD [...] 1:15 PM EDT Office Visit [facility] MEDICINE [address] [place] [phone] Ellen Valladares MD [address] [place] [address] 12/14/2024 3:15 PM EDT Office Visit [facility] MED[facility]INE [address] [place] [address] Ellen Valladares MD [address] [place] [address] documented as of this encounter Visit Diagnoses Not on filedocumented in this encounter Additional Health Concerns Assessment Noted Time PHQ-9 Depression Total Score: 9 05/18/20 24 3:59 PM EDT documented as of this encounter Care Teams Steam Oven Operator Relationship Specialty Start Date End Date Ellen Valladares MD [address] [place] [address] [phone] PCP - General Family Medicine 10/03/21 documented as of this encounter
--- OUTSIDE RECORDS SUMMARY | 2024-09-28 20:20 | XMS_ITS | Encounter Summary ---
Author Organization [employer] Address 75 [facility] 7t [place] [address] Care Team Providers Care Staff Training And Development Manager Name Role Phone Ellen Valladares MD Primary Care Provide r Reason for Visit * Reason Onset Date Comments Referral 09/01/2024 Encounter Details Date Type Department Care Team ([facility] st Contact Info) Description 09/01/2024 Telephone [facility] 230 [place], [place] [phone] Ellen Valladares MD 230 [place], [place] [phone] Referral Social History Tobacco Use Types Packs/Day [...] 11:42 AM EST TC placed to patient [phone] in regards to below message. Patient reports [...] for a kidney specialist. Pt [facility]. documented in this encounter Plan of Treatment Upcoming Encounters Date Type Department Care Team ([facility] st Contact Info) Description 11/18/2024 1:15 PM EDT Office Visit [facility] [address] [place] [address] Ellen Valladares MD 230 [place] [address] 12/14/2024 3:15 PM EDT Office Visit [facility] [address] [place] [address] [phone] Ellen Valladares MD 230 [place] [address] documented as of this encounter Visit Diagnoses Not on filedocumented in this encounter Additional Health Concerns Assessment Noted Time PHQ-9 Depression Total Score: 9 05/18/20 24 3:59 PM EDT documented as of this encounter Care Teams Staff Training And Development Manager Relationship Specialty Start Date End Date Ellen Valladares MD [address] [place] [address] PCP - General Family Medicine 10/03/21 documented as of this encounter
--- OUTSIDE RECORDS SUMMARY | 2024-09-28 20:20 | XMS_ITS | Encounter Summary ---
Author Organization [employer] [facility] Address 75 [facility] 7t [place] [address] Care Team Providers Care Security Tester Name Role Phone Ellen Valladares MD Primary Care Provide r Reason for Referral * Imaging (Urgent) - Authorized Specialty Diagnoses / Procedures Referred By Naman moser Referred To Contact Radiology Diagnoses Breast cancer screening by mammogram Family history of breast cancer in sister Procedures BI Mammogram Screening Tomosynthesis Bilateral Lina Danielle CNM 230 [place] [address] Phone: tel: fax: [address] Phone: tel: fax: Referral ID Status Reason Start Date Expiration Date V isits Requested Visits Authorized [id number] Authorized 09/28/2024 09/28/2025 1 1 * Imaging (Urgent) - Authorized Specialty Diagnoses / Procedures Referred By Naman t Referred To Contact Radiology Diagnoses Pelvic pain Procedures Us Pelvis complete Lina Danielle CNM 230 [place] [address] Phone: tel: fax: [address] Phone: tel: fax: Referral ID Status Reason Start Date Expiration Date V isits Requested Visits Authorized [id number] Authorized 09/28/2024 09/28/2025 1 1 * Imaging (Urgent) - Authorized Specialty Diagnoses / Procedures Referred By Naman moser Referred To Contact Radiology Diagnoses Pelvic pain Procedures US Pelvis Transvaginal Lina Danielle CNM 230 [place] [address] Phone: tel: fax: [address] Phone: tel: fax: Referral ID Status Reason Start Date Expiration Date V isits Requested Visits Authorized [id number] Authorized 09/28/2024 09/28/2025 1 1 Reason for Visit * Reason Comments Gynecologic Exam Encounter Details Date Type Department Care Team (Latest Contact Info) Description 09/28/2024 1:45 PM EST Procedure Visit [facility] MED[facility]INE 230 [place] [address] Lina Danielle CNM 230 [place], [place] [phone] Cervical cancer screening (Primary Dx); Breast cancer [...] female who presents for pap Here for pap/TECHNICAL SERVICE REPRESENTATIVE visit. NIL/HPV neg 09/2019. Denies previous abnormal pap. HIV, Hep C, syphilis neg 04/2024. Gonorrhea/Chlamydia neg 05/2023. Received HBV vaccine series in 2016. She thinks she had mammogram in the past year. Sister diagnosed with breast cancer in her late 50s,Claudine doesn't speak with her. No other family history of breast/TECHNICAL SERVICE REPRESENTATIVE cancer. Notes LLQ pain x 1 month, [...] mammogram records in past 12 months at [facility] or [facility]. Will order now. Screening examination for venereal [...] not in contact. No recent mammogram at [facility] or [facility]. Will order and calculate risk of breast [...] Description 11/18/2024 1:15 PM EDT Office Visit [facility] [address] [place] [phone] Ellen Valladares MD 230 [place] [address] 12/14/2024 3:15 PM EDT Office Visit [facility] 230 [place] [address] Ellen Valladares MD 230 [place] [address] Scheduled Orders Name Type Priority Associated Diagnoses [...] documented as of this encounter Care Teams Security Tester Relationship Specialty Start Date End Date Ellen Valladares MD [address] [place] [address] PCP - General Family Medicine 10/03/21 documented as of this encounter
--- OUTSIDE RECORDS SUMMARY | 2024-09-28 20:20 | XMS_ITS | Encounter Summary ---
Author Organization [employer] Address 75 [facility] 7t [place] [address] Care Team Providers Care Purification Director Name Role Phone Ellen Valladares MD Primary Care Provide r Reason for Visit * Reason Onset Date Comments October08/31/2024 Encounter Details Date Type Department Care Team ([facility] st Contact Info) Description 08/31/2024 Telephone [facility] 230 [place], [place] [phone] Mansoor Sampson [place] OCTOBER RECALL Social History [...] schedule an appt (October) with DR[facility]Barciona [facility] to call back to sche appt.Mailed recall letter. documented in this encounter Plan of Treatment Upcoming Encounters Date Type Department Care Team (Late st Contact Info) Description 11/18/2024 1:15 PM EDT Office Visit [facility] [address] [place] [phone] Ellen Valladares MD [address] [place] [address] 12/14/2024 3:15 PM EDT Office Visit [facility] [address] [place] [phone] Ellen Valladares MD [address] [place] [address] documented as of this encounter Visit Diagnoses Not on filedocumented in this encounter Additional Health Concerns Assessment Noted Time PHQ-9 Depression Total Score: 9 05/18/20 3:59 PM EDT documented as of this encounter Care Teams Purification Director Relationship Specialty Start Date End Date Ellen Valladares MD 230 [place] [address] PCP - General Family Medicine 10/03/21 documented as of this encounter
--- OUTSIDE RECORDS SUMMARY | 2024-09-28 20:20 | XMS_ITS | Encounter Summary ---
Author Organization [facility] Address 75 [facility] 7t [place] [address] Care Team Providers Care Gyro Mechanic Name Role Phone Ellen Valladares MD Primary Care Provide r Encounter Details Date Type Department Care Team (Latest Contact Info) Description 05/20/2022 Abstract [facility] CONVERSIONS Dental, Provider, DDS Social History [...] Description 11/18/2024 1:15 PM EDT Office Visit [facility] MEDICINE [address] [place] [phone] Ellen Valladares MD [address] [place] [address] 12/14/2024 3:15 PM EDT Office Visit [facility] MEDICINE [address] [place] [address] Ellen Valladares MD [address] [place] [address] documented as of this encounter Visit Diagnoses Not on filedocumented in this encounter Care Teams Gyro Mechanic Relationship Specialty Start Date End Date Ellen Valladares MD 230 [place] [address] PCP - General Family Medicine 10/03/21 documented as of this encounter
--- OUTSIDE RECORDS SUMMARY | 2024-09-28 20:20 | XMS_ITS | Encounter Summary ---
Author Organization [employer] Address 75 [facility] 7t [place] [address] Care Team Providers Care Shoe Turner Name Role Phone Ellen Valladares MD Primary Care Provide r Encounter Details Date Type Department Care Team (Late st Contact Info) Description 05/13/2024 Orders Only [facility] MEDICINE 230 [place], [place] [phone] ProviderLakeshia MD Social History Tobacco Use Types [...] Description 11/18/2024 1:15 PM EDT Office Visit [facility] MEDICINE [address] [place] [address] [phone] Ellen Valladares MD [address] [place] [address] [phone] 12/14/2024 3:15 PM EDT Office Visit [address] [phone] Ellen Valladares MD [address] [place] [address] documented as of this encounter Procedures Procedure [...] documented as of this encounter Care Teams Shoe Turner Relationship Specialty Start Date End Date Ellen Valladares MD [address] [place] [address] [phone] PCP - General Family Medicine 10/03/21 documented as of this encounter
--- OUTSIDE RECORDS SUMMARY | 2024-09-28 20:20 | XMS_ITS | Encounter Summary ---
Author Organization [employer] Address 75 [facility] 7t [place] [address] Care Team Providers Care Marine Scientist Name Role Phone Ellen Valladares MD Primary Care Provide r Reason for Visit * Reason Onset Date Comments cx rs appt 07/15/2024 Encounter Details Date Type Department Care Team ([facility] st Contact Info) Description 07/15/2024 Telephone [facility] ADULT DENTAL [address] [place] [address] Cheryl Wall cx rs appt Social History [...] Office Visit [facility] MEDICINE [address] [place] [phone] Ellen Valladares MD [address] [place] [address] 12/14/2024 3:15 PM EDT Office Visit [facility] MEDICINE [address] [place] [phone] Ellen Valladares MD [address] [place] [address] documented as of this encounter Visit Diagnoses Not on filedocumented in this encounter Additional Health Concerns Assessment Noted Time PHQ-9 Depression Total Score: 9 05/18/20 3:59 PM EDT documented as of this encounter Care Teams Marine Scientist Relationship Specialty Start Date End Date Ellen Valladares MD [address] [place] [phone] PCP - General Family Medicine 10/03/21 documented as of this encounter
--- OUTSIDE RECORDS SUMMARY | 2024-09-28 20:20 | XMS_ITS | Encounter Summary ---
Author Organization [employer] Address 75 [facility] 7t [place] [address] Care Team Providers Care Video Camera Operator Name Role Phone Ellen Valladares MD Primary Care Provide r Reason for Visit * Reason Onset Date Comments Nurse Triage 05/02/2023 Encounter Details Date Type Department Care Team ([facility] st Contact Info) Description 05/02/2023 Telephone [facility] MEDICINE 230 [place], [place] [phone] Ellen Valladares MD 230 [place] [address] Nurse Triage Social History Tobacco Use Types [...] accepted this outcome Please contact pt at [phone] documented in this encounter Plan of Treatment Upcoming Encounters Date Type Department Care Team (Late st Contact Info) Description 11/18/2024 1:15 PM EDT Office Visit [facility] MEDICINE [address] [place] [phone] Ellen Valladares MD [address] [place] [address] 12/14/2024 3:15 PM EDT Office Visit [facility] MEDICINE [address] [place] [address] Ellen Valladares MD [address] [place] [address] documented as of this encounter Visit Diagnoses Not on filedocumented in this encounter Additional Health Concerns Assessment Noted Time PHQ-9 Depression Total Score: 0 08/16/19 23 10:02 AM EST documented as of this encounter Care Teams Video Camera Operator Relationship Specialty Start Date End Date Ellen Valladares MD [address] [place] [address] PCP - General Family Medicine 10/03/21 documented as of this encounter
--- OUTSIDE RECORDS SUMMARY | 2024-09-28 20:20 | XMS_ITS | Encounter Summary ---
Author Organization [employer] Address [address] [facility] 7t [place] [address] Care Team Providers Care Guidance Secretary Name Role Phone Ellen Valladares MD Primary Care Provide r Reason for Visit * Reason Onset Date Comments PT1 03/04/2024 Encounter Details Date Type Department Care Team ([facility] st Contact Info) Description 03/04/2024 Telephone [facility] MEDICINE [address] [place], [place] [phone] Ellen Valladares MD [address] [place], [place] [phone] PT1 Social History Tobacco Use Types Packs/Day [...] Y/N: Yes Provider name or facility name: [facility] Facility Address: [address] [place] [address] Escort needed: Y/N: Yes Do you have a wheelchair: Y/N: No Visits: All Future Visits documented in this encounter Plan of Treatment Upcoming Encounters Date Type Department Care Team ([facility] Contact Info) Description 11/18/2024 1:15 PM EDT Office Visit [facility] MEDICINE [address] [place] [phone] Ellen Valladares MD [address] [place] [phone] 12/14/2024 3:15 PM EDT Office Visit [facility] MEDICINE [address] [place] [phone] Ellen Valladares MD [address] [place] [phone] documented as of this encounter Visit Diagnoses Not on filedocumented in this encounter Additional Health Concerns Assessment Noted Time PHQ-9 Depression Total Score: 0 08/16/19 23 10:02 AM EST documented as of this encounter Care Teams Guidance Secretary Relationship Specialty Start Date End Date Ellen Valladares MD [address] [place] [address] PCP - General Family Medicine 10/03/21 documented as of this encounter
--- OUTSIDE RECORDS SUMMARY | 2024-09-28 20:20 | XMS_ITS | Encounter Summary ---
Author Organization [employer] Address [address] [facility] 7t [place] [address] Care Team Providers Care Flat Finisher Name Role Phone Ellen Valladares MD Primary Care Provide r Reason for Referral * Consultation (Routine) - Authorized Specialty Diagnoses / Procedures Referred By Naman t Referred To Contact Vascular Surgery Diagnoses Vascular insufficiency Ellen Valladares MD [address] [place] [address] Phone: tel: fax: [facility] [address] [facility] [address] [place] [address] Phone: tel: fax: Referral ID Status Reason Start Date Expiration Date Visits Requested Visits Authorized [id number] Authorized Specialty Services Required 07/13/2025 6 6 Reason for Visit * Reason Onset Date Comments callback requested 07/05/2024 PT-1 07/05/2024 A PT-1 [id number] has been submitted on your behalf through the [employer] Customer Web Portal (OSSIANIX). (Cardiology)A PT-1 [id number] has been submitted on your behalf through the [employer] Customer Pillars4Life Portal (OSSIANIX). ([facility]) Encounter Details Date Type Department Care Team (Late st Contact Info) Description 07/05/2024 Telephone [facility] MEDICINE [address] [place], [place] [phone] Ellen Valladares MD [address] [place], [place] [phone] callback requested; PT-1 (A PT-1 [id number] has been submitted on your behalf through the [employer] Pillars[employer]Life Portal (OSSIANIX). (Cardiology)/A PT-1 [id number] has been submitted on your behalf through the [employer] Portal (OSSIANIX). ([facility])) Social History Tobacco Use Types Packs/Day Years [...] - 07/06/2024 10:52 AM EST A PT-1 [id number] has been submitted on your behalf through the [employer] Web Portal (OSSIANIX).(Cardiology Office) A PT-1 [id number] has been submitted on your behalf through the [employer] Portal (OSSIANIX).([facility]) * Telephone Encounter - Iraida Schultz RN - 07/05/2024 12:03 PM EST TC placed to patient [phone] in regards to below message. Patient reports she had a positive HORACE, and was referred to a nanotechnologist but has not heard anything regarding the referral. Patient wants a status update (referral placed 05/26/24). Patient would like to know what office she is being referred to. Please review and advise. Thank you! Patient also reports she needs PT1 for: Cardiology office [address] [place] [address] [facility] [address] [place] [address] [facility] [address] [place] [address] Patient reports she has a cardiology appointment on 07/14/24, RN advised patient she will need to find transportation to this appointment as PT1 takes approx 2 weeks for a location to be added otherwise she will need to call office and R/X appointment. Patient also reports she has a dental appointment at [facility] on 07/16/24 however also informed she [...] referral to be sent to fax number [phone]. Callback number [phone] documented in this encounter Plan of Treatment Upcoming Encounters Date Type Department Care Team (Late st Contact Info) Description 11/18/2024 1:15 PM EDT Office Visit [facility] MEDICINE [address] [place] [phone] Ellen Valladares MD [address] [place] [address] [phone] 12/14/2024 3:15 PM EDT Office Visit [facility] MEDICINE [address] [place] [address] [phone] Ellen Valladares MD [address] [place] [address] [phone] Scheduled Referrals Name Type Priority Associated Diagnoses [...] documented as of this encounter Care Teams Flat Finisher Relationship Specialty Start Date End Date Ellen Valladares MD [address] [place] [phone] PCP - General Family Medicine 10/03/21 documented as of this encounter
--- OUTSIDE RECORDS SUMMARY | 2024-09-28 20:20 | XMS_ITS | Encounter Summary ---
Author Organization [employer] Address [address] [facility] 7t [place] [address] Care Team Providers Care Boiler Welder Name Role Phone Ellen Valladares MD Primary Care Provide r Reason for Visit * Reason Onset Date Comments rs appt/no show 05/17/2024 Encounter Details Date Type Department Care Team ([facility] Contact Info) Description 05/17/2024 Telephone [facility] ADULT DENTAL [address] [place] [address] Araceli Chua, ESTHELA [address] [place] [address] rs appt/no show Social History Tobacco Use [...] called in looking to schedule appt for scientologist. Last appt 05/06 was a no show. Patient has been informed that she will get a call to rescheduled the appt directly from [facility] dental office DR documented in this encounter Plan of Treatment Upcoming Encounters Date Type Department Care Team (Late st Contact Info) Description 11/18/2024 1:15 PM EDT Office Visit [facility] MEDICINE [address] [place] [phone] Ellen Valladares MD [address] [place] [phone] 12/14/2024 3:15 PM EDT Office Visit [facility] MEDICINE [address] [place] [phone] Ellen Valladares MD [address] [place] [phone] documented as of this encounter Visit Diagnoses Not on filedocumented in this encounter Additional Health Concerns Assessment Noted Time PHQ-9 Depression Total Score: 0 08/16/19 10:02 AM EST documented as of this encounter Care Teams Boiler Welder Relationship Specialty Start Date End Date Ellen Valladares MD [address] [place] [phone] PCP - General Family Medicine 10/03/21 documented as of this encounter
--- OUTSIDE RECORDS SUMMARY | 2024-09-28 20:21 | XMS_ITS | Encounter Summary ---
Author Organization [employer] Address [address] [facility] 7t [place] [address] Care Team Providers Care Security Administrator Name Role Phone Ellen Valladares MD Primary Care Provide r Reason for Visit * Reason Onset Date Comments Appointment Request 08/18/2024 Encounter Details Date Type Department Care Team ([facility] Contact Info) Description 08/18/2024 Telephone [facility] MEDICINE [address] [place], [place] [phone] Ellen Valladares MD [address] [place] [address] Appointment Request Social History Tobacco Use Types [...] PM EDT Office Visit [facility] MEDICINE [address] [place] [phone] Ellen Valladares MD [address] [place] [phone] 12/14/2024 3:15 PM EDT Office Visit [facility] MEDICINE [address] [place] [address] Ellen Valladares MD [address] [place] [phone] documented as of this encounter Visit Diagnoses Not on filedocumented in this encounter Additional Health Concerns Assessment Noted Time PHQ-9 Depression Total Score: 9 05/18/20 3:59 PM EDT documented as of this encounter Care Teams Security Administrator Relationship Specialty Start Date End Date Ellen Valladares MD [address] [place] [address] PCP - General Family Medicine 10/03/21 documented as of this encounter
--- OUTSIDE RECORDS SUMMARY | 2024-09-28 20:21 | XMS_ITS | Clinical Summary ---
Author Organization [employer] Address [address] [facility] 7t [place] [address] Care Team Providers Care Garment Sewer Hand Name Role Phone Ellen Valladares MD Primary [...] complication, with long-term current use of insulin ([facility]) See Instructions, # 1 box, Refills 1, Tot. Refills 1, Maintenance, Diagnosis: 11.9 Length of need: 99 months, 03/12/17 17:46:25, Compound 100 each 023 Active Continuous Blood Gluc Canal Structure Operator (FreeStyle Sayda 14 Day [place]) deviceIndicatio ns:Type 2 diabetes mellitus with other [...] complication, with long-term current use of insulin ([facility]) Use to test BG with Freestyle Sayda [...] daily. 180 tablet 023 Active sodium chloride ([place] Nasal [place]) 0.65 % nasal sprayIndication s:Viral URI 1-2 sprays on each nostril every 2-3 hours as needed for nasal congestion 30 mL 1 023 Active Blood Pressure kitIndications: Essential hypertension 1 kit in the morning. 1 kit 023 Active semaglutide (Ozempic) 2 MG/1.5ML solution pen-injectorInd ications:Type 2 diabetes mellitus with hyperglycemia, with long-term current use of insulin ([facility]) Inject 0.5 mg under the skin 1 (one) time per week. 4 each 3 024 Active Lantus SoloStar 100 UNIT/ML penIndications: Type 2 diabetes mellitus with other specified complication, with long-term current use of insulin ([facility]) INJECT 50 UNITS SUBCUTANEOUSLY EVERY EVENING 3 [...] foot 01/02/2015 Overview (08/16/2022): 12/28/14 at [facility]: Xray of R foot shows no acute abnormality. Xray of ankle shows Small heel spur noted, in typical location, at site of insertion of plantar aponeurosis. Chronic bilateral low back pain 01/02/2015 Peripheral edema 12/08/2014 Mixed anxiety and depressive disorder 08/27/2012 Vitamin D deficiency 12/25/2011 Encounters Date Type Department Care Team Description 09/28/2024 1:45 PM EST Procedure Visit [address] [address] Lina Danielle CNM Cervical cancer screening (Primary Dx); Breast cancer screening by mammogram; Screening examination for venereal disease; Pelvic pain; Family history of breast cancer in sister; Tinbernie salazaruris 09/28/2024 Travel 09/27/[address] [address] Ellen Valladares MD Vitamin B12 deficiency; Vitamin D deficiency; Mixed anxiety and depressive disorder 09/01/[address] [address] Ellen Valladares MD Referral 08/31/[address] [address] Mansoor Sampson [place] October08/19/[address] [address] Mansoor Sampson [place] Appointment Request 08/18/[address] [address] Ellen Valladares MD Appointment Request 08/18/[address] [address] Ellen Valladares MD Results 08/11/2024 Orders Only GENERIC EXTERNAL DATA DEPARTMENT Provider, Generic External Data 08/04/[address] [address] Ellen Valladares MD Referral 07/22/2024 Telephone [facility] MEDICINE [address] [place] [address] Ellen Valladares MD 07/15/2024 Telephone [facility] CHC ADULT DENTAL [address] [place] [address] Cheryl Wall cx rs appt 07/08/2024 Telephone [facility] [address] [place] [address] Mansoor Sampson [place] 07/05/2024 Telephone [facility] MEDICINE [address] [place] [address] Ellen Valladares MD callback requested; PT-1 (A PT-1 [id number] has been submitted on your behalf through the [employer] Customer Web Portal ([employer]). (Cardiology)/A PT-1 [id number] has been submitted on your behalf through the [employer] Portal (Nomacorc). ([facility])) from Last 3 Months Immunizations Name Administration [...] Description 11/18/2024 1:15 PM EDT Office Visit [facility] MEDICINE [address] [place] [address] Ellen Valladares MD [address] [place], [place] [phone] 12/14/2024 3:15 PM EDT Office Visit [facility] MEDICINE [address] [place] [address] Ellen Valladares MD [address] [place], [place] [phone] Health Maintenance Due Date Last Done Comments [...] hyperglycemia, with long-term current use of insulin ([facility]) Essential hypertension HIV 1/2 ANTIGEN/ANTIBODY, FOURTH GENERATION W/RFL Routine 05/18/2024 3:05 PM EDT Type 2 diabetes mellitus with hyperglycemia, with long-term current use of insulin ([facility]) Essential hypertension ALBUMIN, RANDOM URINE W/CREATININE Routine 05/18/2024 3:05 PM EDT Type 2 diabetes mellitus with hyperglycemia, with long-term current use of insulin ([facility]) LIPID PANEL, STANDARD Routine 05/18/2024 3:05 PM EDT Type 2 diabetes mellitus with hyperglycemia, with long-term current use of insulin ([facility]) Essential hypertension POCT GLYCATED HEMOGLOBIN, TOTAL Routine 05/18/2024 2:15 PM EDT Type 2 diabetes mellitus with hyperglycemia, with long-term current use of insulin ([facility]) BITEWING - SINGLE RADIOGRAPHIC IMAGE Routine 05/09/2023 [...] Whole Blood 125(H) 60 - 115 mg/dL [facility] Comment:METER #: [id number] 5Testing performed in the Endocrinology Department [address] , [address], [place]. 08/11/2024 1:38 PM EST 08/11/2024 1:42 PM EST us Generic External Data Provider LAB BLOOD ORDERAB LES Final Result [facility] [address] [place] [address] [phone] * Albumin, Random Urine W/Creatinine (05/18/2024 3:05 PM EDT) Creatinine, Urine 120.83 mg/dL [facility] Microalbumin Urine 11.0 mg/L [facility] Microalbum Creatinine Ratio Ur 9.1 <30 ug/mg cr [facility] Comment:Albumin/Creatinine R atio Reference Ranges: Normal: < 30 ug/mg creatinine Microalbuminuria: 30 - 300 ug/mg creatinineClinical Albuminuria: > 300 ug/mg creatinine Urine (Urine, Random) 05/18/2024 3:05 PM EDT 05/18/2024 4:38 PM EDT us Ellen Collier MD LAB URINE ORDERABLES Final Result Performing Organization Address [facility] Co de Phone Number [facility] [address] [place] [address] [phone] * Hepatitis C Antibody with Reflex to HCV, RNA, Quantitative, Real-Time PCR (05/18/2024 3:05 PM EDT) Pathologist [facility] Hepatitis C Antibody Nonreactive Nonreactive [facility] Comment:Antibodies to HCV no t detected; does not exclude early acuteHCV infection. Blood Venous blood specimen / Unknown 05/18/2024 3:05 PM EDT 05/18/2024 4:36 PM EDT us Ellen Collier MD LAB BLOOD ORDERABLES Final Result Performing Organization Address [facility]/ZIP Co de Phone Number [facility] [address] [place] [address] [phone] * HIV-1/2 Antigen and Antibodies, Fourth Generation, with Reflexes (05/18/2024 3:05 PM EDT) HIV AB/AG Nonreactive Nonreactive [facility] Comment:HIV-1 p24 Ag and/or HIV-1/HIV-2 Ab not detected.A test result that is nonreactive does not exclude thepossibility of exposure to or infection with HIV-1 and/orHIV-2. Nonreactive results in this assay for individualswith prior exposure to HIV-1 and/or HIV-2 may be due toantigen and antibody levels that are below the limit ofdetection of this assay.The [employer]Pledge HIV Ag/Ab Combo assay result andsupplemental assay results should be interpreted inconjunction with the patient's clinical presentation,history and other laboratory results. If the results areinconsistent with clinical evidence, additional testing issuggested to confirm the result. Blood Venous blood specimen / Unknown 05/18/2024 3:05 PM EDT 05/18/2024 4:36 PM EDT us Ellen Collier MD LAB BLOOD ORDERABLES Final Result [facility] [address] [place] [address] [phone] * (ABNORMAL) Lipid Panel, Standard (05/18/2024 3:05 PM EDT) Triglycerides 201(H) <150 mg/dL [facility] Comment:Desirable Triglyceri de: less than 150 mg/dLBorderline High Triglyceride 150-199 mg/dLHigh Triglyceride: 200-499 mg/dLVery High Triglyceride: greater than or equal to 5OO mg/dL Cholesterol 161 <200 mg/dL [facility] Comment:Desirable Cholestero l: less than 200 mg/dLBorderline High Cholesterol: 200-239 mg/dLHigh Cholesterol: greater than 239 mg/dL LDL Cholesterol Calculated 72 <100 mg/dL [facility] Comment:Desirable LDL: less than 100 mg/dLNear Optimal/Above Optimal LDL: 110- 129 mg/dLBorderline High LDL: 130-159 mg/dLHigh LDL: 160-189 mg/dLVery High LDL: greater than or equal to 190 mg/dL HDL Cholesterol 49 >40 mg/dL [facility] Comment:Desirable HDL: great er than 40 mg/dL Note: This HDL assay may give artificially low results in patients with liver disease. Blood Venous blood specimen / Unknown 05/18/2024 3:05 PM EDT 05/18/2024 4:36 PM EDT Ellen Collier MD LAB BLOOD ORDERABLES Final Result [facility] [address] [place] [address] [phone] * (ABNORMAL) POCT HGB A1C (05/18/2024 [...] Most Recently Relevant to Health Maintenance Insurance [facility] C[place] ST[place] AD[place] Care Teams Garment Sewer Hand Relationship Specialty Start Date End Date Ellen Valladares MD [address] [place] [phone] PCP - General Family Medicine 10/03/21
[2024-10-14 15:07] LABS: HPV Genotype 16 Negative (Negative); HPV Genotype 18 Negative (Negative); HPV High Risk Negative (Negative)
== END 2024-09-28 16:45 | disposition home or self-care (01) ==
LOC: HO.HHCLNP 16:44
PROVIDERS: Visit Provider Advanced Practice Midwife
DX: Z12.4 Encounter for screening for malignant neoplasm of cervix (principal)
CPT/HCPCS: 87491; 87591; 87626; 87661; 88175

== ENCOUNTER 2024-12-22 10:52 | Outpatient (AMB) | payer MEDICAID, SELFPAY ==
[2024-12-22 10:58] VITALS: BP 132/82; PULSE 87; O2SAT 96; BMI 38.3
--- NOTE | 2024-12-22 10:58 | A.OFFVIS_ITS ---
Vital Signs 12/22/24 10:58 Height 5 ft 2 in Weight 209 lb 7.026 oz BMI 38.3 BP 132/82 Blood Pressure Location Rt brachial Position Sitting Pulse 87 Pulse Source Pulse Oximeter Pulse Oximetry (%) 96 Oxygen Delivery Method Room Air Intake Visit Reasons: T2DM Intake Note: Patient presents today for a follow-up on Type 2 Diabetes Mellitus: Last Diabetic eye exam was on: DUE Last Podiatry exam was on: Patient does not see a Clinical Trials Systems Administrator Most recent HbA1c: 8.3%, 12/22/2024 Random Glucose- 168 mg/dL, Today Allergies No Known Allergies Allergy (Verified 08/11/24 13:39) HPI Comments Details: 54 year old female with diabetes presenting for follow up Initially diagnosed with T2DM ~6 years ago Was initially started on treatment with metformin. Current regimen Lantus 60 units (increased from 50 units at last visit) Ozempic 2mg weekly, previously on Trulicity3 mg stopped metformin due to GI side effects A1C is 8.3% from 8.8% today. Sayda has not been used consistently. She seems to have some trouble setting this up/monitoring-referred to certified adapted physical educator today Family history of T2DM in Mother and brother have Type 2 DM Eye exam overdue-says she goes to [facility]-number provided for her Denies neuropathy-was referred to podiatry. Number given Denies nephropathy, Not on CASSANDRA/ARB. Has HLD, on statin. Denies CAD ROS CONSTITUTIONAL: Denies weight loss, fever and chills. HEENT: Denies changes in vision and hearing. RESPIRATORY: Denies SOB and cough. CV: Denies palpitations and CP GI: Denies abdominal pain, nausea, vomiting and diarrhea. : Denies dysuria and urinary frequency. MSK: Denies new myalgia and joint pain. SKIN: Denies rash and pruritus. NEUROLOGICAL: Denies headache PSYCHIATRIC: Denies recent changes in mood. PHYSICAL EXAM: GENERAL: Alert and oriented x 3. NAD EYES: EOMI. Anicteric. HENT: Moist mucous membranes. No scleral icterus. No cervical lymphadenopathy. LUNGS: Clear to auscultation bilaterally. CARDIOVASCULAR: Regular rate and rhythm. +murmur ABDOMEN: Soft, non-tender +bs EXTREMITIES: No edema. Non-tender. SKIN: No rashes or lesions. Warm. NEUROLOGIC: No focal neurological deficits. CN II-XII grossly intact PSYCHIATRIC: Cooperative. Appropriate mood and affect [facility] Medical History Uncontrolled type 2 diabetes mellitus with hyperglycemia Surgical History Hx of inguinal hernia surgery Family History Mother Diabetes High blood pressure Arthritis Heart problem Social History Household Members: Children Household Members Other:: 3 daughters, caregiver Alcohol intake: current Alcohol intake frequency: holidays/special occasions only Patient Tobacco Use Status: Former Tobacco user Current occupational status: disabled Current occupation: rt hand Physical Exam Vital Signs: Last Vital Signs Pulse 87 12/22/24 10:58 BP 132/82 12/22/24 10:58 Pulse Ox 96 12/22/24 10:58 Oxygen Delivery Method Room Air 12/22/24 10:58 BMI result Body Mass Index 38.3 Results AMB Hemoglobin A1c AMB Hemoglobin A1c 8.3 % Last Edit by JASON Pate on 12/22/24 11:18 Results Reviewed Results Reviewed: Laboratory Last Values Glucose (Clinic) 168 mg/dL (60-115) H 12/22/24 11:05 Hgb A1c (Clinic) 8.3 % (4.0-6.0) H 12/22/24 11:17 Assessment & Plan Assessment & Plan (1) Uncontrolled type 2 diabetes mellitus with hyperglycemia: Code(s): E11.65 - Type 2 diabetes mellitus with hyperglycemia Category: Medical (2) Positive HORACE (antinuclear antibody): Code(s): R76.8 - Other specified abnormal immunological findings in serum Category: Medical Plan Diabetes-improving control. Try to transition to mounjaro for added weight loss benefit. If not covered she will continue with ozempic Add glipizide Continue current lantus dosing Patient would like to recheck HORACE which was positive at primary She will follow up when due for next A1C or sooner as needed Orders: Orders AMB Hemoglobin A1c Today E11.65 - Type 2 diabetes mellitus with hyperglycemia Anti DNA DS Antibody Today R76.8 - Other specified abnormal immunological findings in serum HORACE Reflex Titer and Pattern Today R76.8 - Other specified abnormal immunological findings in serum Sm Sm/MUSICAL INSTRUMENT MAKER OR REPAIRER Antibodies Today R76.8 - Other specified abnormal immunological findi ngs in serum Medications: New Mounjaro (tirzepatide) 12.5 mg (0.5 mL) subcut QWEEK 6 mL 3RF NS E11.65 - Type 2 diabetes mellitus with hyperglycemia glipizide ER 5 mg PO DAILY 90 tabs 3RF Discontinued semaglutide (Ozempic) Discontinued Reason: Doctor's Order 1 mg (0.75 mL) subcut QWEEK 3 mL 3RF Coding Level of Care Code Est Pt Level 4 (18762) Diagnoses Uncontrolled type 2 diabetes mellitus with hyperglycemia E11.65 Positive HORACE (antinuclear antibody) R76.8
[2024-12-22 11:08] LABS: Glucose, Whole Blood 168 mg/dL (60-115)
--- OUTSIDE RECORDS SUMMARY | 2024-12-22 11:57 | XMS_ITS | Encounter Summary ---
Author Organization [employer] Address [address] 7t [place] [address] Care Team Providers Care Air Pollution Analyst Name Role Phone Ellen Valladares MD Primary Care Provide r Encounter Details Date Type Department Care Team (Late st Contact Info) Description 05/13/2024 Orders Only [facility] MEDICINE [address] [place] [address] ProviderLakeshia MD Social History Tobacco Use Types [...] Care Team (Late st Contact Info) Description 12/31/2024 9:30 AM EDT Office Visit [facility] MED[facility]INE [address] [place] [address] Ellen Valladares MD [address] [place], [place] [phone] documented as of this encounter Procedures Procedure [...] documented as of this encounter Care Teams Air Pollution Analyst Relationship Specialty Start Date End Date Ellen Valladares MD [address] [place] [address] [phone] PCP - General Family Medicine 10/03/21 documented as of this encounter
== END 2024-12-22 11:46 | disposition home or self-care (01) ==
LOC: HO.ENCR 10:53
PROVIDERS: PCP Internal Medicine; Visit Provider Internal Medicine
DX: E11.65 Type 2 diabetes mellitus with hyperglycemia (principal); R76.8 Other specified abnormal immunological findings in serum

== ENCOUNTER 2024-12-22 11:48 | Outpatient (REF) | payer MEDICAID, SELFPAY ==
[2024-12-23 18:49] LABS: Anti DNA DS Antibody <1 IU/mL; SM/Ribonucleoprotein Ab <1.0 NEG AI (<1.0 NEG); Smith Protein <1.0 NEG AI (<1.0 NEG)
[2024-12-31 15:23] LABS: Anti Nuclear Antibody Screen POSITIVE (NEGATIVE)
== END 2024-12-22 11:49 | disposition home or self-care (01) ==
LOC: HO.10HDL 11:48
PROVIDERS: Visit Provider Internal Medicine
DX: E11.65 Type 2 diabetes mellitus with hyperglycemia (principal); R76.8 Other specified abnormal immunological findings in serum
CPT/HCPCS: 36415; 82947; 83036; 86038; 86039; 86225; 86235; 99212

== ENCOUNTER 2024-12-31 10:47 | Outpatient (REF) | payer MEDICAID, SELFPAY ==
--- OUTSIDE RECORDS SUMMARY | 2024-12-31 11:40 | XMS_ITS | Encounter Summary ---
Author Organization [employer] Address [address] [facility] 7t [place] [address] Care Team Providers Care Furniture Cleaner Name Role Phone Ellen Valladares MD Primary Care Provide r Encounter Details Date Type Department Care Team (Late st Contact Info) Description 05/13/2024 Orders Only [facility] MEDICINE [address] [place] [address] ProviderLakeshia MD Social History Tobacco Use Types [...] as of this encounter Plan of Treatment Not on file documented as of this encounter Procedures Procedure [...] documented as of this encounter Care Teams Furniture Cleaner Relationship Specialty Start Date End Date Ellen Valladares MD [address] [place] [address] PCP - General Family Medicine 10/03/21 documented as of this encounter
[2024-12-31 13:24] LABS: MANUAL DIFF FLAG NO
[2024-12-31 13:34] LABS: Basophils Percent Auto 0.4 % (0-2); Eosinophils Absolute Auto 0.3 X10*3/uL (0.0-0.4); Eosinophils Percent Auto 2.7 % (0-4); Hematocrit 39.8 % (37.0-47.0); Hemoglobin 12.6 g/dl (12.0-16.0); Imm Gran Abs Auto 0.04 X10*3/uL (0.00-0.03); Imm Gran Pct Auto 0.4 % (0.0-0.4); Lymphocytes Absolute Auto 3.8 X10*3/uL (1.2-4.9); Mean Corpuscular HGB Conc 31.7 g/dl (31.0-35.0); Mean Corpuscular Hemoglobin 27.3 pg (27.0-33.0); Mean Corpuscular Volume 86.3 fL (80.0-98.0); Mean Platelet Volume 10.6 fL (9.4-12.3); Monocytes Absolute Auto 0.6 X10*3/uL (0.1-1.2); Monocytes Percent Auto 6.2 % (2-11); Neutrophils Absolute Auto 5.3 x10*3/uL (2.0-8.3); Neutrophils Percent Auto 52.3 % (45-73); Platelet Count 318 X10*3/uL (160-400); Red Blood Count 4.61 X10*6/uL (4.20-5.50); Red Cell Distribution Width 13.9 % (11.0-16.0); White Blood Count 10.1 X10*3/uL (4.8-10.8)
[2024-12-31 14:04] LABS: Estimated Average Glucose 180 mg/dL; Hemoglobin A1c % 7.9 % (<6.0)
[2024-12-31 14:27] LABS: TSH reflex Free T4 1.75 uIU/mL (0.32-4.0); Vitamin D 25-OH Total 33.7 ng/mL (>30)
[2024-12-31 14:32] LABS: Anion Gap 10 (12-20)
[2024-12-31 14:37] LABS: Alanine Aminotransferase 20 U/L (0-31); Albumin Level 4.3 g/dL (3.5-5.0); Alkaline Phosphatase 92 U/L (39-117); Aspartate Amino Transferase 22 U/L (5-31); Bilirubin Total 0.3 mg/dL (0.0-1.0); Blood Urea Nitrogen 16 mg/dL (9-16); Calcium 9.7 mg/dL (8.4-10.2); Carbon Dioxide 33 mmol/L (22-29); Chloride 104 mmol/L (96-108); Cholesterol 129 mg/dL (<200); Estimated Glomerular Filt Rate > 60; Glucose Random 88 mg/dL (60-115); HDL Cholesterol 47 mg/dL (>40); LDL Cholesterol Calculated 66 mg/dL (<100); Potassium 3.6 mmol/L (3.3-5.1); Sodium 143 mmol/L (135-145); Total Protein 6.9 g/dL (6.5-8.0); Triglycerides 81 mg/dL (<150)
[2025-01-01 04:19] LABS: HBS Num1 98.94 mIU/mL (0-7.99); HBc Num1 0.11 S/CO (0.00-0.79); HBsAGNum1 0.38 S/CO (0.00-0.99); HIV AB/AG Nonreactive (Nonreactive); HIV Num 1 0.05 S/CO (0.00-0.99); Hepatitis A Antibody IgM 0.21 Index (0-0.79); Hepatitis B Core Antibody Nonreactive (Nonreactive); Hepatitis B Surface Antigen Negative (Negative); ~HepC Num1 0.11 S/CO (0.00-0.79); ~Hepatitis A Antibody IgM Nonreactive (Nonreactive); ~Hepatitis B Surface Antibody REACTIVE (Nonreactive); ~Hepatitis C Antibody Nonreactive (Nonreactive)
[2025-01-03 15:44] LABS: RPR Rapid Plasma Reagin NON-REACTIVE (NON-REACTIVE)
== END 2024-12-31 10:48 | disposition home or self-care (01) ==
LOC: HO.HHCL 10:47
PROVIDERS: Visit Provider Internal Medicine
DX: Z00.00 Encounter for general adult medical examination without abnormal findings (principal); Z11.3 Encounter for screening for infections with a predominantly sexual mode of transmission
CPT/HCPCS: 36415; 80053; 80061; 82306; 83036; 84443; 85025; 86592; 86704; 86706; 86709; 86803; 87340; 87389; 87491; 87591

== ENCOUNTER 2024-12-31 14:15 | Outpatient (REF) | payer MEDICAID, SELFPAY ==
[2024-12-31 18:22] LABS: CT PCR NOT DETECTED (Not Detect.); NG PCR NOT DETECTED (Not Detect.)
== END 2024-12-31 14:16 | disposition home or self-care (01) ==
LOC: HO.HHCL 14:15
PROVIDERS: Visit Provider Internal Medicine
DX: Z13.89 Encounter for screening for other disorder (principal)
CPT/HCPCS: 87491; 87591

== ENCOUNTER → 2025-01-05 14:36 | Outpatient (BNVA) | payer MEDICAID, SELFPAY | PROVIDERS: PCP Internal Medicine; Visit Provider Internal Medicine ==

== ENCOUNTER 2025-07-14 14:07 | Outpatient (AMB) | payer MEDICAID, SELFPAY ==
--- NOTE | 2025-07-14 14:09 | A.OFFVIS_ITS ---
Vital Signs 07/14/25 14:10 Height 5 ft 2 in Weight 213 lb 13.574 oz BMI 39.1 BP 130/82 Blood Pressure Location Rt brachial Position Sitting Pulse 86 Pulse Source Pulse Oximeter Intake Visit Reasons: T2DM Intake Note: Patient presents today for a follow-up on Type 2 Diabetes Mellitus: Last Diabetic eye exam was on: DUE Last Podiatry exam was on: Patient does not see a Sr. Operations Manager Most recent HbA1c: 5.5%, 07/14/2025 Random Glucose- 106 mg/dL, Today Refrigeration Brazer/Solderer Required: No Accompanied by: Mother Allergies No Known Allergies Allergy (Verified 07/14/25 14:18) HPI Comments Details: 55 year old female with diabetes presenting for follow up Initially diagnosed with T2DM ~6 years ago Was initially started on treatment with metformin. Current regimen Lantus 60 units -reports compliance Mounjaro 12.5 weekly stopped metformin due to GI side effects A1C is 5.5% from 8.3% from 8.8% today. Previously on ozempic 2mg, trulicity-was not controlled glucose. Intolerant metformin due to GI side effects Has yves sensors but has not been using them-difficulty setting up etc. Did not bring them today. Previously referred to CDE but no show Family history of T2DM in Mother and brother have Type 2 DM Eye exam overdue-says she goes to [facility]-number provided for her previously Denies neuropathy-was referred to podiatry. Number given Denies nephropathy, Not on CASSANDRA/ARB. Has HLD, on statin. Denies CAD ROS CONSTITUTIONAL: Denies weight loss, fever and chills. HEENT: Denies changes in vision and hearing. RESPIRATORY: Denies SOB and cough. CV: Denies palpitations and CP GI: Denies abdominal pain, nausea, vomiting and diarrhea. : Denies dysuria and urinary frequency. MSK: Denies new myalgia and joint pain. SKIN: Denies rash and pruritus. NEUROLOGICAL: Denies headache PSYCHIATRIC: Denies recent changes in mood. PHYSICAL EXAM: GENERAL: Alert and oriented x 3. NAD EYES: EOMI. Anicteric. HENT: Moist mucous membranes. No scleral icterus. No cervical lymphadenopathy. LUNGS: Clear to auscultation bilaterally. CARDIOVASCULAR: Regular rate and rhythm. +murmur ABDOMEN: Soft, non-tender +bs EXTREMITIES: No edema. Non-tender. SKIN: No rashes or lesions. Warm. NEUROLOGIC: No focal neurological deficits. CN II-XII grossly intact PSYCHIATRIC: Cooperative. Appropriate mood and affect [facility] Medical History Uncontrolled type 2 diabetes mellitus with hyperglycemia Surgical History Hx of inguinal hernia surgery Family History Mother Diabetes High blood pressure Arthritis Heart problem Social History Household Members: Children Household Members Other:: 3 daughters, caregiver Alcohol intake: current Alcohol intake frequency: holidays/special occasions only Patient Tobacco Use Status: Former Tobacco user Current occupational status: disabled Current occupation: rt hand Physical Exam Vital Signs: Last Vital Signs Pulse 86 07/14/25 14:10 BP 130/82 07/14/25 14:10 BMI result Body Mass Index 39.1 Results AMB Hemoglobin A1c AMB Hemoglobin A1c 5.5 % Last Edit by JASON Pate on 07/14/25 14:23 Results Reviewed Results Reviewed: Laboratory Last Values Glucose (Clinic) 109 mg/dL (60-115) 07/14/25 14:15 Hgb A1c (Clinic) 5.5 % (4.0-6.0) 07/14/25 14:20 Assessment & Plan Assessment & Plan (1) Controlled diabetes mellitus: Code(s): E11.9 - Type 2 diabetes mellitus without complications Category: Medical Plan Controlled type 2 diabetes Congratulated on interval control. Increase mounjaro to 15mg, stop glipizide, continue 60 units insulin daily See CDE for CGM review Continued weight loss efforts. Increase exercise Treat hypoglycemia by rules of 15s Follow up in 3 months or sooner as needed Orders: Orders AMB Hemoglobin A1c Today E11.65 - Type 2 diabetes mellitus with hyperglycemia Referrals Diabetes Education Referral E11.65 - Type 2 diabetes mellitus with hyperglycemia Medications: New tirzepatide (Mounjaro) 15 mg (0.5 mL) subcut QWEEK 6 mL 3RF Refilled insulin glargine (Lantus Solostar U-100 Insulin) 60 units (0.6 mL) subcut QPM 45 mL 3RF Discontinued Mounjaro (tirzepatide) Discontinued Reason: Doctor's Order 12.5 mg (0.5 mL) subcut QWEEK 6 mL 3RF NS E11.65 - Type 2 diabetes mellitus with hyperglycemia glipizide ER Discontinued Reason: Doctor's Order 5 mg PO DAILY 90 tabs 3RF Coding Level of Care Code Est Pt Level 4 (50518) Diagnoses Controlled diabetes mellitus E11.9
[2025-07-14 14:10] VITALS: BP 130/82; PULSE 86; BMI 39.1
[2025-07-14 14:19] LABS: Glucose, Whole Blood 109 mg/dL (60-115)
--- OUTSIDE RECORDS SUMMARY | 2025-07-14 18:20 | XMS_ITS | Encounter Summary ---
Author Organization [employer] [facility] Address [address] [place] [address] 7 [place] [address] Care Team Providers Care Sanitor Name Role Phone Ellen Valladares MD Primary Care Provide r Encounter Details Date Type Department Care Team (Latest Contact Info) Description 05/20/2022 Abstract [facility] CONVERSIONS Dental, Provider, DDS Social History [...] Care Team (Late st Contact Info) Description 07/18/2025 2:00 PM EST Telemedicine [facility] MEDICINE [address] [place] [address] Ellen Valladares MD [address] [place] [address] documented as of this encounter Visit Diagnoses Not on filedocumented in this encounter Care Teams Sanitor Relationship Specialty Start Date End Date Ellen Valladares MD [address] [place] [address] PCP - General Family Medicine 10/03/21 documented as of this encounter
--- OUTSIDE RECORDS SUMMARY | 2025-07-14 18:20 | XMS_ITS | Encounter Summary ---
Author Organization [employer] Address [address] [facility] 7t [place] [address] Care Team Providers Care Mainframe Architect Name Role Phone Ellen Valladares MD Primary Care Provide r Encounter Details Date Type Department Care Team ([facility] st Contact Info) Description 06/08/2025 Orders Only [facility] MEDICINE [address] [place], [place] [phone] Ellen Valladares MD [address] [place] [address] Social History Tobacco Use Types Packs/Day Years Used Date Smoking Tobacco: Never Passive Smoke Exposure: Never Smokeless Tobacco: Never Alcohol Use Standard Drinks/Week Comments Not Currently 0 (1 standard drink = 0.6 oz pur e alcohol) Depression Answer Date Recorded Patient Health Questionnaire-9 Score 11 12/31/2024 Patient Health Questionnaire-9 Score 11 12/31/2024 Last PHQ-9: Questionnaire Data Not on file 0 12/31/2024 Housing Stability Answer Date Recorded What is your housing situation today? I have dylon ayers 12/22/[address] you li ve. Do you have problems with any of the following? Pests such as bugs, ants, or mice 12/22/2024 Food Insecurity Answer Date Recorded Within the past 12 months, y ou worried that your food would run out before you got money to buy more: Never True 12/22/2024 Within the past 12 months,th e food [...] work, or getting things that I need 12/22/2024 Utilities Answer Date Recorded In the past 12 months, has t he electric, gas, oil or water company threatened to shut off services in your home? No 12/22/2024 Depression Answer Date Recorded Patient Health Questionnaire-2 Score 2 12/31/2024 Internet Access Answer Date Recorded Internet Access Q1 Yes 12/22/2024 Internet Access Q2 Not on file 12/22/2024 Comments Unknown Sex and Gender Information Value Date Recorded Sex Assigned at Female 05/27/2022 10:16 AM EDT Legal Sex Female 10:16 AM EDT Gender Identity Female 05/27/2022 10:16 AM EDT Sexual Orientation Straight 05/27/2022 10 :16 AM EDT documented as of this encounter Plan of Treatment Upcoming Encounters Date Type Department Care Team (Late st Contact Info) Description 07/18/2025 2:00 PM EST Telemedicine [facility] MEDICINE [address] [place] [address] Ellen Valladares MD [address] [place] [address] documented as of this encounter Goals Goal Patient Goal Type Associated Problems Recent Progress Patient-Stated? Author Help patients manage their type 2 diabetes Care Plan Help patients manage their type 2 diabetes Ellen Hernandez MD Weekly blood pressure task Care Plan Weekly blood pressure task No Ellen Valladarse MD Help patients manage their type 2 diabetes Care Plan Help patients manage their type 2 diabetes Ellen Hernandez MD Patient has chronic kidney disease Care Plan Patient has chronic kidney disease Ellen Hernandez MD Weekly blood pressure task Care Plan Weekly blood pressure task Ellen Hernandez MD Patient has chronic kidney disease Care Plan Patient has chronic kidney disease Ellen Hernandez MD documented as of this encounter Visit Diagnoses Not on filedocumented in this encounter Additional Health Concerns Active Problems Noted Date Diagnosed Date Help patients manage their type 2 diabetes 06/08 Weekly blood pressure task 06/08/2025 Help patients manage their type 2 diabetes 06/08 Patient has chronic kidney disease 06/08/2025 Weekly blood pressure task 06/08/2025 Patient has chronic kidney disease 06/08/2025 Assessment Noted Time PHQ-9 Depression Total Score: 11 025 9:16 AM EDT documented as of this encounter Care Teams Mainframe Architect Relationship Specialty Start Date End Date Ellen Valladares MD [address] [place] [id number] PCP - General Family Medicine 10/03/21 documented as of this encounter
--- OUTSIDE RECORDS SUMMARY | 2025-07-14 18:20 | XMS_ITS | Encounter Summary ---
Author Organization [employer] Address [address] [facility] 7t [place] [address] Care Team Providers Care Pool Lifeguard Name Role Phone Ellen Valladares MD Primary Care Provide r Reason for Visit * Reason Onset Date Comments cx rs appt 07/15/2024 Encounter Details Date Type Department Care Team ([facility] st Contact Info) Description 07/15/2024 Telephone [facility] D[facility]AL [address] [place] [address] Cheryl Wall cx rs appt Social History [...] Info) Description 07/18/2025 2:00 PM EST Telemedicine [facility] MEDICINE [address] [place], [place] [phone] Ellen Valladares MD 230 [place] [address] documented as of this encounter Visit Diagnoses Not on filedocumented in this encounter Additional Health Concerns Assessment Noted Time PHQ-9 Depression Total Score: 9 05/18/20 24 3:59 PM EDT documented as of this encounter Care Teams Pool Lifeguard Relationship Specialty Start Date End Date Ellen Valladares MD 230 [place], [place] [phone] PCP - General Family Medicine 10/03/21 documented as of this encounter
--- OUTSIDE RECORDS SUMMARY | 2025-07-14 18:20 | XMS_ITS | Encounter Summary ---
Author Organization [employer] [facility] Address [address] [facility] 7t [place] [address] Care Team Providers Care Automotive Parts Counter Person Name Role Phone Ellen Valladares MD Primary Care Provide r Encounter Details Date Type Department Care Team ([facility] st Contact Info) Description 07/14/2025 Orders Only [facility] EXTERNAL DATA DEPARTMENT Provider, [...] housing situation today? I have dylon sing 12/22/[address] you li [...] Info) Description 07/18/2025 2:00 PM EST Telemedicine [facility] MEDICINE [address] [place] [address] Ellen Valladares MD [address] [place] [address] documented as of this encounter Goals Goal Patient Goal Type Associated Problems Recent Progress Patient-Stated? Author Help patients manage their type 2 diabetes Care Plan Help patients manage their type 2 diabetes No Ellen Valladares MD Weekly blood pressure task Care Plan Weekly blood pressure task No Ellen Valladares MD Help patients manage their type 2 diabetes Care Plan Help patients manage their type 2 diabetes No Ellen Valladares MD Patient has chronic kidney disease Care Plan Patient has chronic kidney disease No Ellen Valladares MD Weekly blood pressure task Care Plan Weekly blood pressure task No Ellen Valladares MD Patient has chronic kidney disease Care Plan Patient has chronic kidney disease No Ellen Valladares MD Weekly blood pressure task Care Plan Weekly blood pressure task No Ricardo Patterson MA Weekly blood pressure task Care Plan Weekly blood pressure task No Ricardo Patterson MA Patient has chronic kidney disease Care Plan Patient has chronic kidney disease No Ricardo Patterson MA Patient has chronic kidney disease Care Plan Patient has chronic kidney disease No Ricardo Patterson MA Weekly blood pressure task Care Plan Weekly blood pressure task No Korin Matos Weekly blood pressure task Care Plan Weekly blood pressure task No Korin Matos Patient has chronic kidney disease Care Plan Patient has chronic kidney disease No Korin Matos Patient has chronic kidney disease Care Plan Patient has chronic kidney disease No Korin Matos Weekly blood pressure task Care Plan Weekly blood pressure task No Ana Hernandez DEEP SUBMERGENCE VEHICLE OPERATOR Weekly blood pressure task Care Plan Weekly blood pressure task No HernandezSayga, DEEP SUBMERGENCE VEHICLE OPERATOR Patient has chronic kidney disease Care Plan Patient has chronic kidney disease No HernandezSayga, DEEP SUBMERGENCE VEHICLE OPERATOR Patient has chronic kidney disease Care Plan Patient has chronic kidney disease No Ana Hernandez, DEEP SUBMERGENCE VEHICLE OPERATOR documented as of this encounter Procedures Procedure Name Priority Date/Time Associated Diagnosis Comments GLUCOSE, WHOLE BLOOD Routine 07/14/2025 2:15 PM EST documented in this encounter Results * Glucose, Whole Blood (07/14/2025 2:15 PM EST) Glucose, Whole Blood 109 60 - 115 mg/dL [facility] Comment:METER #: [id number] Testing performed in the Endocrinology Department [address] , [address], [facility]. 07/14/2025 2:15 PM EST 07/14/2025 2:18 PM EST us Generic External Data Provider LAB BLOOD ORDERAB LES Final Result [facility] [address] [place] [phone] documented in this encounter Visit Diagnoses Not on filedocumented in this encounter Additional Health Concerns Active Problems Noted Date Diagnosed Date Help patients manage their type 2 diabetes 06/08 Weekly blood pressure task 06/08/2025 Help patients manage their type 2 diabetes 06/08 Patient has chronic kidney disease 06/08/2025 Weekly blood pressure task 06/08/2025 Patient has chronic kidney disease 06/08/2025 Weekly blood pressure task 06/09/2025 Weekly blood pressure task 06/09/2025 Patient has chronic kidney disease 06/09/2025 Patient has chronic kidney disease 06/09/2025 Weekly blood pressure task 06/16/2025 Weekly blood pressure task 06/16/2025 Patient has chronic kidney disease 06/16/2025 Patient has chronic kidney disease 06/16/2025 Weekly blood pressure task 07/06/2025 Weekly blood pressure task 07/06/2025 Patient has chronic kidney disease 07/06/2025 Patient has chronic kidney disease 07/06/2025 Assessment Noted Time PHQ-9 Depression Total Score: 11 025 9:16 AM EDT documented as of this encounter Care Teams Automotive Parts Counter Person Relationship Specialty Start Date End Date Ellen Valladares MD [address] [place] [id number] PCP - General Family Medicine 10/03/21 documented as of this encounter
--- OUTSIDE RECORDS SUMMARY | 2025-07-14 18:20 | XMS_ITS | Encounter Summary ---
Author Organization [employer] Address [address] [facility] 7 [place] [address] Care Team Providers Care Spinner Cap Frame Name Role Phone Ellen Valladares MD Primary Care Provide r Reason for Visit * Reason Onset Date Comments Durable Medical Equipment 06/24/2023 Encounter Details Date Type Department Care Team ([facility] st Contact Info) Description 06/24/2023 Telephone [facility] MEDICINE [address] [place], [place] [phone] Ellen Valladares MD [address] [place] [address] Durable Medical Equipment Social History Tobacco Use [...] pt requesting diabetic shoes and stockings. Cesar [address] [place] [address] documented in this encounter Plan of Treatment Upcoming Encounters Date Type Department Care Team (Late st Contact Info) Description 07/18/2025 2:00 PM EST Telemedicine [facility] MEDICINE [address] [place] [address] Ellen Valladares MD [address] [place] [address] documented as of this encounter Visit Diagnoses Not on filedocumented in this encounter Additional Health Concerns Assessment Noted Time PHQ-9 Depression Total Score: 0 08/16/19 10:02 AM EST documented as of this encounter Care Teams Spinner Cap Frame Relationship Specialty Start Date End Date Ellen Valladares MD 230 [place] [address] PCP - General Family Medicine 10/03/21 documented as of this encounter
--- OUTSIDE RECORDS SUMMARY | 2025-07-14 18:20 | XMS_ITS | Encounter Summary ---
Author Organization [facility] Address [address] [place] [address] 7 [place] [address] Care Team Providers Care Dixonac Operator Name Role Phone Ellen Valladares MD Primary Care Provide r Reason for Visit * Reason Comments Med Refill Encounter Details Date Type Department Care Team ([facility] Contact Info) Description 02/05/2023 Refill [facility] MEDICINE [address] [place], [place] [phone] Idalia Barnett MD [address] [place] [address] Type 2 diabetes mellitus with other specified complication, with long-term current use of insulin ([facility]) Social History Tobacco Use Types [...] Upcoming Encounters Date Type Department Care Team ([facility] Contact Info) Description 07/18/2025 2:00 PM EST Telemedicine [facility] MEDICINE [address] [place], [place] [phone] Ellen Valladares MD [address] [place] [address] documented as of this encounter Visit Diagnoses Diagnosis Type 2 diabetes mellitus with other specified complication, with long-term current use of insulin (HCC) documented in this encounter Additional Health Concerns Assessment Noted Time PHQ-9 Depression Total Score: 0 08/16/19 23 10:02 AM EST documented as of this encounter Care Teams Dixonac Operator Relationship Specialty Start Date End Date Ellen Valladares MD [address] [place] [address] PCP - General Family Medicine 10/03/21 documented as of this encounter
--- OUTSIDE RECORDS SUMMARY | 2025-07-14 18:20 | XMS_ITS | Encounter Summary ---
Author Organization [employer] Address [address] [place] [address] Care Team Providers Care Adon Name Role Phone Ellen Valladares MD Primary Care Provide r Reason for Visit * Reason Onset Date Comments PT1 07/01/2022 Encounter Details Date Type Department Care Team ([facility] st Contact Info) Description 07/01/2022 Telephone [facility] MEDICINE [address] [place], [place] [phone] Ellen Valladares MD [address] [place] [address] PT1 Social History Tobacco Use Types Packs/Day [...] 19, 2022 Time:12:30 Pm/ 9:20 AM address: [address] [place] [address] specialty:Equipment Maintenance Engineer # visits: mapping technician:1 Wheelchair: N/A PT1 Date:Jun Time:10:30 Am address:[address] [place] [address] specialty: Vascular Xray # visits: mapping technician:1 Wheelchair:N/A PT1 Date:Jun Time: 3:00PM address:[address] [facility] Specialty: Vascular # visits: mapping technician: 1 Wheelchair: N/A PT1 Date:TBD Time:TBD address:[address] [facility] specialty:Ortho # visits: mapping technician:1 Wheelchair: N/A PT1 Date: Jul 15, 2022 Time:11:00 Am address:[address] [place] [address] specialty:Ortho Xray # visits: mapping technician:1 Wheelchair:N/A * Telephone Encounter - Zamzam Sampson - 07/02/2022 11:08 AM EST TC from patient calling in regards to PT1 approval. Security Intelligence Analyst let patient know it takes 7-10 days and letter will be mailed out. Patient understood. * Telephone Encounter - Ilya Sampson - 07/01/2022 12:21 PM EST Tc from pt requesting pt1 Location: [address] [place] [address] Specialty: Time: 11 am Date: 07/03/22 Sales Force Administrator: yes Wheelchair access n/a Location: [address] [address] Specialty: Time: 10 am Date: 07/11/22 Sales Force Administrator: yes Wheelchair access n/a Location: [address] [place] [address] Specialty: Time:12:30 pm Date: 07/11/22 Sales Force Administrator: yes Wheelchair access n/a Location: [address] [place] [address] Specialty: alistair theodore Time:07/15/22 Date: 11:30 am Sales Force Administrator: yes Wheelchair access n/a Location: [address] [place] [address] Specialty: Time: 10:30 am Date: 07/18/22 Sales Force Administrator: yes Wheelchair access n/a Location: [address] [place] [address] Specialty: Time: 09:30 am Date: 07/19/22 Sales Force Administrator: yes Wheelchair access n/a Location: [address] [place] [address] Specialty: Time 3pm Date: 07/23/22 Sales Force Administrator: yes Wheelchair access n/a documented in this encounter Plan of Treatment Upcoming Encounters Date Type Department Care Team (Late st Contact Info) Description 07/18/2025 2:00 PM EST Telemedicine [facility] MEDICINE [address] [place] [address] Ellen Valladares MD [address] [place] [address] documented as of this encounter Visit Diagnoses Not on filedocumented in this encounter Care Teams Adon Relationship Specialty Start Date End Date Ellen Valladares MD [address] [place] [id number] PCP - General Family Medicine 10/03/21 documented as of this encounter
--- OUTSIDE RECORDS SUMMARY | 2025-07-14 18:20 | XMS_ITS | Encounter Summary ---
Author Organization [employer] Address [address] [facility] 7 [place] [address] Care Team Providers Care Reel Man Name Role Phone Ellen Valladares MD Primary Care Provide r Reason for Visit * Reason Onset Date Comments PT1 03/04/2024 Encounter Details Date Type Department Care Team ([facility] Contact Info) Description 03/04/[address] [facility] [address] [place], [place] [phone] Ellen Valladares MD 230 [place], [place] [phone] PT1 Social History Tobacco Use Types Packs/Day [...] Y/N: Yes Provider name or facility name: [facility] Facility Address: [address] [place] [address] Escort needed: Y/N: Yes Do you have a wheelchair: Y/N: No Visits: All Future Visits documented in this encounter Plan of Treatment Upcoming Encounters Date Type Department Care Team ([facility] Contact Info) Description 07/18/2025 2:[address] [facility] [address] [place] [phone] Ellen Valladares MD [address] [place] [phone] documented as of this encounter Visit Diagnoses Not on filedocumented in this encounter Additional Health Concerns Assessment Noted Time PHQ-9 Depression Total Score: 0 08/16/19 23 10:02 AM EST documented as of this encounter Care Teams Reel Man Relationship Specialty Start Date End Date Ellen Valladares MD [address] [place] [phone] PCP - General Family Medicine 10/03/21 documented as of this encounter
--- OUTSIDE RECORDS SUMMARY | 2025-07-14 18:20 | XMS_ITS | Encounter Summary ---
Author Organization [employer] Address [address] [facility] 7 [place] [address] Care Team Providers Care Insole Tape Stitcher Uco Name Role Phone Ellen Valladares MD Primary Care Provide r Reason for Visit * Reason Onset Date Comments Nurse Triage 05/02/2023 Encounter Details Date Type Department Care Team ([facility] Contact Info) Description 05/02/[address] [facility] MEDICINE [address] [place], [place] [phone] Ellen Valladares MD [address] [place], [place] [phone] Nurse Triage Social History Tobacco Use Types [...] Miscellaneous Notes * Telephone Encounter - Mayra Shaikh - 05/02/2023 1:17 PM EDT Symptom: Vaginal Symptoms - Not Bleeding Outcome: Schedule an urgent appointment (within 1 hour) or talk to a nurse or provider soon Reason: Any pelvic pain, requesting STD testing The caller accepted this outcome Please contact pt at [phone] documented in this encounter Plan of Treatment Upcoming Encounters Date Type Department Care Team (Late st Contact Info) Description 07/18/2025 2:00 PM EST Telemedicine [facility] MED[facility]INE [address] [place] [address] Ellen Valladares MD [address] [place] [address] documented as of this encounter Visit Diagnoses Not on filedocumented in this encounter Additional Health Concerns Assessment Noted Time PHQ-9 Depression Total Score: 0 08/16/19 23 10:02 AM EST documented as of this encounter Care Teams Insole Tape Stitcher Uco Relationship Specialty Start Date End Date Ellen Valladares MD [address] [place], [place] [phone] PCP - General Family Medicine 10/03/21 documented as of this encounter
--- OUTSIDE RECORDS SUMMARY | 2025-07-14 18:20 | XMS_ITS | Encounter Summary ---
Author Organization [employer] Address [address] [place] [address] 7 [place] [address] Care Team Providers Care Gas Meter Repairer Name Role Phone Ellen Valladares MD Primary Care Provide r Reason for Referral * Consultation (Routine) - Closed Specialty Diagnoses / Procedures Referred By Contac t Referred To Contact Vascular Surgery Diagnoses Vascular insufficiency Ellen Valladares MD [address] [place] [address] Phone: tel: fax: [facility] [address] [facility] [address] [place] [address] Phone: tel: fax: Referral ID Status Reason Start Date Expiration Date V isits Requested Visits Authorized [id number] Closed Specialty Services Required 07/13/2024 07/13/2025 6 6 Reason for Visit * Reason Onset Date Comments callback requested 07/05/2024 PT-1 07/05/2024 A PT-1 [id number] has been submitted on your behalf through the [employer] ([employer]). (Cardiology)A PT-1 [id number] has been submitted on your behalf through the [employer] ([employer]). ([facility], later [facility]) Encounter Details Date Type Department Care Team ([facility] st Contact Info) Description 07/05/2024 Telephone [facility] MED[facility] [address] [place], [place] [phone] Ellen Valladares MD [address] [place] [address] callback requested; PT-1 (A PT-1 [id number] has been submitted on your behalf through the [employer] ([employer]). (Cardiology)/A PT-1 [id number] has been submitted on your behalf through the [employer] Portal ([employer]). ([employer])) Social History Tobacco Use Types Packs/Day Years [...] - 07/06/2024 10:52 AM EST A PT-1 [id number] has been submitted on your behalf through the [employer] ([employer]).(Cardiology Office) A PT-1 [id number] has been submitted on your behalf through the [employer] Portal ([employer]).([facility]) * Telephone Encounter - Iraida Schultz RN - 07/05/2024 12:03 PM EST TC placed to patient [phone] in regards to below message. Patient reports she had a positive HORACE, and was referred to a banjo repair person but has not heard anything regarding the referral. Patient wants a status update (referral placed 05/26/24). Patient would like to know what office she is being referred to. Please review and advise. Thank you! Patient also reports she needs PT1 for: Cardiology office [address] [place], [place] [phone] [place] [address] [address] [place] [address] [facility] [address] [place] [address] Patient reports she has a cardiology appointment on 07/14/24, RN advised patient she will need to find transportation to this appointment as PT1 takes approx 2 weeks for a location to be added otherwise she will need to call office and R/X appointment. Patient also reports she has a dental appointment at [facility] on 07/16/24 however also informed she willneed [...] referral to be sent to fax number [phone]. Callback number [phone] documented in this encounter Plan of Treatment Upcoming Encounters Date Type Department Care Team (Late st Contact Info) Description 07/18/2025 2:00 PM EST Telemedicine [facility] [address] [place] [address] Ellen Valladares MD [address] [place], [place] [phone] documented as of this encounter Procedures Procedure Name Priority Date/Time Associated Diagnosis Comments AMB REFERRAL TO VASCULAR SURGERY Routine 06/01/2024 Vascular insufficiency documented in this encounter Results * Referral to Vascular Surgery (06/01/2024) us Ellen Collier MD OUTPATIENT REFERRAL O RDERABLES Final Result documented in this encounter Visit Diagnoses Diagnosis Vascular insufficiency- Primary Unspecified circulatory system disorder documented in this encounter Additional Health Concerns Assessment Noted Time PHQ-9 Depression Total Score: 9 05/18/20 24 3:59 PM EDT documented as of this encounter Care Teams Gas Meter Repairer Relationship Specialty Start Date End Date Ellen Valladares MD [address] [place] [address] PCP - General Family Medicine 10/03/21 documented as of this encounter
--- OUTSIDE RECORDS SUMMARY | 2025-07-14 18:20 | XMS_ITS | Encounter Summary ---
Author Organization [employer] Address [address] [facility] [place] [address] Care Team Providers Care Formation Fracturing Operator Name Role Phone Ellen Valladares MD Primary Care Provide r Encounter Details Date Type Department Care Team (Late st Contact Info) Description 05/13/2024 Orders Only [facility] MED[facility] [address] [place] [address] Provider, MD [place] Social History Tobacco Use Types Packs/Day Years Used Date Smoking Tobacco: Never Smokeless Tobacco: Never Alcohol Use Standard Drinks/Week Comments Not Currently 0 (1 standard drink = 0.6 oz pur e alcohol) Depression Answer Date Recorded Patient Health Questionnaire-9 Score 0 08/16/2022 Housing Stability Answer Date Recorded What is your housing situation today? I have dylonparviz ayers 08/22/[address] you [...] the past 12 months, has t he [email or web address], gas, oil or water [employer] threatened to shut off services in your [...] Info) Description 07/18/2025 2:00 PM EST Telemedicine [facility] [address] [place], [place] [phone] Ellen Valladares MD [address] [place], [place] [phone] documented as of this encounter Procedures Procedure [...] documented as of this encounter Care Teams Formation Fracturing Operator Relationship Specialty Start Date End Date Ellen Valladares MD [address] [place] [phone] PCP - General Family Medicine 10/03/21 documented as of this encounter
--- OUTSIDE RECORDS SUMMARY | 2025-07-14 18:20 | XMS_ITS | Encounter Summary ---
Author Organization [employer] Address [address] [facility] 7t [place] [address] Care Team Providers Care Ent Nurse Name Role Phone Ellen Valladares MD Primary Care Provide r Reason for Visit * Reason Onset Date Comments rs appt/no show 05/17/2024 Encounter Details Date Type Department Care Team ([facility] st Contact Info) Description 05/17/2024 Telephone [facility] [address] [place] [address] Araceli Chua DDS rs appt/no show Social History Tobacco Use [...] AM EDT documented as of this encounter Functional Status * Over the past 2 weeks, how often have you been bothered by any of the following problems? Question Answer Date of Assessment Author Patient Health Questionnaire -2 Score 2 05/18/2024 3:59 PM EDT Mansoor Sampson [place] * How difficult have these problems made it for you to do your work, take care of things at home, or get along with other people? Answer Date of Assessment Author Very difficult 05/18/2024 3:59 PM EDT Dina Sampson [place] * Over the past 2 weeks, how often have you been bothered by any of the following problems? Question Answer Date of Assessment Author Little interest or pleasure in doing things Several days 05/18/2024 3:59 PM EDT Mansoor Sampson [place] Feeling down, depressed, or hopeless Several days 05/18/2024 3:59 PM EDT Mansoor Sampson [place] Trouble falling or staying asleep, or sleeping too much Several days 05/18/2024 3:59 PM EDT Mansoor Sampson [place] Feeling tired or having little energy Several days 05/18/2024 3:59 PM EDT Mansoor Sampson [place] Poor appetite or overeating Several days 05/18/2024 3: 59 PM DONTRELLT Mansoor Sampson [place] Feeling bad about yourself - or that you are a failure or have let yourself or your family down Several days 05/18/2024 3:59 PM EDT Mansoor Sampson [place] Trouble concentrating on things, such as reading the newspaper or watching television Several days 05/18/2024 3:59 PM EDT Mansoor Sampson MA Moving or speaking so slowly that other people could have noticed? Or the opposite - being so fidgety or restless that you have been moving around a lot more than usual. Several days 05/18/2024 3:59 PM EDT Mansoor Sampson MA Thoughts that you would be better off or hurting yourself in some way Several days 05/18/2024 3:59 PM EDT Mansoor aSmpson MA Patient Health Questionnaire-9 Score 9 05/18/2024 3:59 PM EDT Mansoor Sampson [place] documented as of this encounter Miscellaneous Notes * Telephone Encounter - Shirin Wright - 05/17/2024 9:34 AM EDT Patient called in looking to schedule appt for zoroastrian. Last appt 05/06 was a no show. Patient has been informed that she will get a call to rescheduled the appt directly from [facility] dental office DR documented in this encounter Plan of Treatment Upcoming Encounters Date Type Department Care Team (Late st Contact Info) Description 07/18/2025 2:00 PM EST Telemedicine [facility] MEDICINE [address] [place] [address] Ellen Valladares MD [address] [place] [address] documented as of this encounter Visit Diagnoses Not on filedocumented in this encounter Additional Health Concerns Assessment Noted Time PHQ-9 Depression Total Score: 0 08/16/19 23 10:02 AM EST documented as of this encounter Care Teams Ent Nurse Relationship Specialty Start Date End Date Ellen Valladares MD [address] [place] [address] PCP - General Family Medicine 10/03/21 documented as of this encounter
--- OUTSIDE RECORDS SUMMARY | 2025-07-14 18:21 | XMS_ITS | Encounter Summary ---
Author Organization [employer] Address [address] [place] [address] 7 [place] [address] Care Team Providers Care Home Day Care Provider Name Role Phone Ellen Valladares MD Primary Care Provide r Reason for Visit * Reason Onset Date Comments Appointment Request 08/18/2024 Encounter Details Date Type Department Care Team ([facility] Contact Info) Description 08/18/2024 Telephone [facility] MEDICINE [address] [place], [place] [phone] Ellen Valladares MD [address] [place], [place] [phone] Appointment Request Social History Tobacco Use Types [...] Info) Description 07/18/2025 2:00 PM EST Telemedicine [facility] MEDICINE [address] [place] [address] lElen Valladares MD [address] [place] [address] documented as of this encounter Visit Diagnoses Not on filedocumented in this encounter Additional Health Concerns Assessment Noted Time PHQ-9 Depression Total Score: 9 05/18/20 24 3:59 PM EDT documented as of this encounter Care Teams Home Day Care Provider Relationship Specialty Start Date End Date Ellen Valladares MD [address] [place] [address] PCP - General Family Medicine 10/03/21 documented as of this encounter
--- OUTSIDE RECORDS SUMMARY | 2025-07-14 18:21 | XMS_ITS | Clinical Summary ---
Author Organization [employer] Address [address] [place] [address] [address] [place] [address] Care Team Providers Care Erp Programmer Name Role Phone Ellen Valladares MD Primary [...] with long-term current use of insulin (HCC) See Instructions, # 1 box, Refills 1, Tot. Refills 1, Maintenance, Diagnosis: 11.9 Length of need: 99 months, 03/12/17 17:46:25, Compound 100 each 023 Active Continuous Blood Gluc Neon Electrician (FreeStyle Sayda 14 Day [place]) deviceIndicatio ns:Type 2 diabetes mellitus with other specified complication, with long-term current use of insulin (HCC) Place 1 Device on the skin every 14 (fourteen) days. 4 each 023 Active Continuous Blood Gluc Sensor (FreeStyle Sayda 2 Sensor) miscIndications :Type 2 diabetes mellitus with other specified complication, with long-term current use of insulin (HCC) DIRECTED 4 each 023 Active glucose blood (FreeStyle Precision Rony Test) test stripIndication s:Type 2 diabetes mellitus with other specified complication, with long-term current use of insulin ([facility]) Use to test BG with Freestyle Sayda when prompted 1-2X/D UD Dx. E11.65 Freestyle Rony Strips 100 each 023 Active Melatonin ER 10 MG tablet controlled-rele aseIndications: Mixed anxiety and depressive disorder TAKE 1 TABLET BY MOUTH EVERY DAY AT BEDTIME NEEDED FOR SLEEP *NOT COVERED* 90 tablet 3 023 Active metFORMIN (Glucophage) 1000 MG tabletIndicatio ns:Type 2 diabetes mellitus with other specified complication, with long-term current use of insulin ([facility]) Take 1 tablet (1,000 mg) by mouth 2 times daily. 180 tablet 023 Active oxybutynin (Ditropan) 5 MG tabletIndicatio ns:Mixed stress and urge urinary incontinence Take 1 tablet (5 mg) by mouth 2 times daily. 180 tablet 023 Active sodium chloride ([place] Nasal [place]) 0.65 % nasal sprayIndication s:Viral URI 1-2 sprays on each nostril every 2-3 hours as needed for nasal congestion 30 mL 1 023 Active Blood Pressure kitIndications: Essential hypertension 1 kit in the morning. 1 kit 023 Active semaglutide (Ozempic) 2 MG/1.5ML solution pen-injectorInd ications:Type 2 diabetes mellitus with hyperglycemia, with long-term current use of insulin ([facility]) Inject 0.5 mg under the skin 1 (one) time per week. 4 each 3 024 Active Lantus SoloStar 100 UNIT/ML penIndications: Type 2 diabetes mellitus with other specified complication, with long-term current use of insulin ([facility]) INJECT 50 UNITS SUBCUTANEOUSLY EVERY EVENING 3 mL 11 024 Active acetaminophen (Tylenol 8 Hour) 650 MG ER tabletIndicatio ns:Polyarthralg ia Take 2 tablets (1,300 mg) by mouth every 8 (eight) hours if needed for mild pain. Do not crush, chew, or split. 30 tablet 1 024 Active cholecalciferol (Vitamin D-3) 50 MCG (2000 UT) capsuleIndicati ons:Vitamin D deficiency take 1 capsule by Oral route every day 90 capsule 3 025 Active Aspirin Low Dose 81 MG EC tabletIndicatio ns:Type 2 diabetes mellitus with other specified complication, with long-term current use of insulin (HCC) Take 1 tablet (81 mg) by mouth Once per day. 90 tablet 3 025 Active atorvastatin (Lipitor) 20 MG tabletIndicatio ns:Dyslipidemia Take 1 tablet (20 mg) by mouth Once per day. 90 tablet 3 025 2025 Active buPROPion XL (Wellbutrin XL) 150 MG 24 hr tabletIndicatio ns:Mixed anxiety and depressive disorder Take 1 tablet (150 mg) by mouth Once per day. 90 tablet 3 025 Active FLUoxetine (PROzac) 20 MG capsuleIndicati ons:Mixed anxiety and depressive disorder Take 1 capsule (20 mg) by mouth in the morning. 90 capsule 3 025 Active hydroCHLOROthia zide (HYDRODiuril) 25 MG tabletIndicatio ns:Essential hypertension Take 1 tablet (25 mg) by mouth Once per day. 30 tablet 11 025 2025 Active insulin pen needle (BD Pen Needle Janeen 2nd Gen) 32G x 4 mm miscIndications :Type 2 diabetes mellitus with other specified complication, with long-term current use of insulin (HCC) USE DIRECTED DAILY 100 each 025 Active clotrimazole (Lotrimin) 1 % cream Apply 1 Application. topically 2 times daily. 30 g 2 025 Active B Complex Vitamins (vitamin B complex) tabletIndicatio ns:Vitamin B12 deficiency Take 1 tablet by mouth Once per day. 90 tablet 3 025 Active cyanocobalamin (Vitamin B-12) 100 MCG tabletIndicatio ns:Vitamin B12 deficiency take one daily 90 tablet 1 025 Active hydrOXYzine HCl (Atarax) 50 MG tabletIndicatio ns:Mixed anxiety and depressive disorder TAKE 1 TABLET BY MOUTH TWICE A DAY 60 tablet 1 025 Active cyanocobalamin (Vitamin B-12) 100 MCG tabletIndicatio ns:Vitamin B12 deficiency take one daily 90 tablet 1 025 2024 Discontinued(R eorder (will not trigger notification to Pharmacy)) hydrOXYzine HCl (Atarax) 50 MG tabletIndicatio ns:Mixed anxiety and depressive disorder TAKE 1 TABLET BY MOUTH TWICE A DAY 60 tablet 1 025 2024 Discontinued(R eorder (will not trigger notification to Pharmacy)) Active Problems Problem Noted Date Diagnosed Date Encounter for preventive care 12/31/2024 Assessment & Plan (12/31/2024 10:07 AM EDT): HPI Tuberculosis screening 05/18/2024 Screening examination for STI [...] Abnormal cervical Papanicolaou smear 08/16/2022 Morbid obesity (CMS/HCC) 08/16/2022 Type 2 diabetes mellitus 08/16/2022 Assessment & Plan (12/31/2024 10:09 AM EDT): Diabetes is: not controlled but improved - Lab Results Component Value Date HGBA1C 7.7 (A) 12/31/2024 HGBA1C 8.6 (A) 05/18/2024 HGBA1C 7.9 (A) 09/03/2023 - Lab Results Component Value Date MICROALBUR 11.0 05/18/2024 CREATININE 0.75 05/18/2024 -Changes: none - Diabetic eye exam:pending has upcoming appointment - Diabetic foot exam:pending - Continue lifestyle modifications - Continue current medications - follow up with endocrinology Assessment & Plan (05/18/2024 3:53 PM EDT): [...] be in Osteoarthritis of both knees 05/03/2021 Essential hypertension 04/22/2019 Assessment & Plan (12/31/2024 10:10 AM EDT): Maintenance: BMP: ordered today Lipid Panel: ordered today ASCVD Risk: Calculate pending updated labs - [...] consulting health care provider Assessment & Plan (05/18/2024 3:52 PM EDT): [...] right foot 01/02/2015 Overview (08/16/2022): 12/28/14 at [facility]: Xray of R foot shows no acute abnormality. Xray of ankle shows Small heel spur noted, in typical location, at site of insertion of plantar aponeurosis. Chronic bilateral low back pain 01/02/2015 Peripheral edema 12/08/2014 Mixed anxiety and depressive disorder 08/27/2012 Assessment & Plan (12/31/2024 10:08 AM EDT): Continue to follow-up with therapist I refilled her fluoxetine and bupropion today Vitamin D deficiency 12/25/2011 Resolved Problems Problem Noted Date Diagnosed Date Resolved Date Michelle's palsy 08/17/2020 12/31/2024 Overview (08/16/2022): 07/27/2020 Encounters Date Type Department Care Team Description 07/14/2025 Orders Only GENERIC EXTERNAL DATA DEPARTMENT Provider, Generic External Data 07/06/2025 Refill [facility] [address] [place] [address] Ellen Valladares MD Mixed anxiety and depressive disorder 06/16/2025 Refill [facility] [address] [place], [place] [phone] Ellen Valladares MD Vitamin B12 deficiency 06/08/2025 Orders Only [facility] [address] [place] [phone] Ellen Valladares MD 05/31/2025 Patient Outreach [address] [phone] Ellen Valladares MD Care Coordination (CH[facility] outreach for SDOH PT-1 and food needs-referral completed /) 05/31/[address] [phone] Ellen Valladares MD pt1; Home Care Services (I called the patient, regarding a referral for AFC services from [facility]. Per her PCP, she does not qualify for AFC services, because she does not need 24/7 care. She may be referred for [employer] services, if she is agreeable. She stated that she already has AFC services, and the paperwork is for a renewal.) 05/19/2025 Telephone [facility] [address] [place] [phone] Ellen Valladares MD Letter for School/Work 05/04/[address] [facility] [address] [place], [place] [phone] Ellen Valladares MD Vitamin B12 deficiency 05/03/[address] [facility] [address] [place], [place] [phone] Ellen Valladares MD Mixed anxiety and depressive disorder 04/15/[address] [phone] Ellen Valladares MD from Last 3 Months Immunizations Immunization Administration Dates Next Due Hep B, adult [...] Sign Reading Time Taken Comments Blood Pressure 115/69 12/31/2024 9:15 AM EDT Pulse 76 12/31/2024 9:15 AM EDT Temperature 37.1 C (98.8 F) 12/31/2024 9:15 AM EDT Respiratory Rate 20 12/31/2024 9:15 AM EDT Oxygen Saturation 100% 09/28/2024 1:17 PM EST Inhaled Oxygen Concentration - - Weight 94.1 kg (207 lb 6.4 oz) 12/31/2024 9:15 A M EDT Height 157.5 cm (5' 2 ) 12/31/2024 9:15 AM EDT Body Mass Index 37.93 12/31/2024 9:15 AM EDT Plan of Treatment Upcoming Encounters Date Type Department Care Team (Late st Contact Info) Description 07/18/2025 2:00 PM EST Telemedicine [facility] [address] [place] [phone] Ellen Valladares MD [address] [place] [phone] Health Maintenance Due Date Last Done Comments CT Colonography 1970 Colonoscopy 1970 Colorectal Cancer Screening 1970 FIT DNA/Cologuard 1970 FIT 1970 FOBT 1970 Sigmoidoscopy 1968 Diabetes: Foot Exam 02/03/1978 Eye Exam 02/03/1978 Alcohol/Substance Use Screening 1980 Mammogram 2008 RSV Patients and Patients Aged 60 years or older (1 - Risk 50-74 years 1-dose series) 02/03/2018 Zoster Vaccines (2 of 2) 05/02/2020 03/07/2020 Dental Oral Exam 10/25/2022 04/26/2022 Dental Prophylaxis 11/19/2022 05/20/2022 Dental X-Ray: Bitewings 05/10/2024 05/09/2023, 04/26 Pneumococcal Vaccine: 50+ Years (3 of 3 - PCV20 or PCV21) 03/07/2025 03/07/2020, 12/19/2015 COVID-19 Vaccine ( season) 2025 Influenza Vaccine (#1) 2025 , 09/03/2023, 08/16/2022, Additional history exists Diabetes: Hemoglobin A1C 04/02/2025 025, 12/31/2024, 05/18/2024, Additional history exists Dental X-Ray: Full Mouth 04/27/2025 022, 04/26/2022, 06/06/2021 Diabetes: Urine Protein Screening 05/18/2025 05/18/2024, 06/09/2023, 02/03/2023, Additional history exists Depression Monitoring 07/02/2025 12/31/2024, 025 SDOH Screening 12/22/2025 12/22/2024 Disability Screening 12/31/2025 12/31/2024 Lipid Panel 12/31/2025 12/31/2024, 04/28, 06/09/2023, Additional history exists Tobacco Screening 12/31/2025 12/31/2024 DTaP/Tdap/Td Vaccines (3 - Td or Tdap) 11/19/2028 11/19/2018, 01/20/2013 Cervical Cancer Screening 09/28/2029 HPV/Cotest 09/28/2029 09/28/2024 Pap Smear 09/28/2029 09/28/2024, 10/06/2019 Hepatitis B Vaccines Completed 05/14/2016, 12/19/2015, 10/17/2015 HIV Screening Completed 12/31/2024, 0310/2024, 05/18/2024, Additional history exists Hepatitis C Screening Completed 12/31/2024 , 05/18/2024, 06/09/2023, Additional history exists HIB Vaccines Aged Out [...] age to complete this topic Meningococcal B Vaccine Aged Out No l onger eligible based on patient's age to complete this topic Meningococcal Vaccine Aged Out No stefanie randall eligible based on patient's age to complete this topic RSV under 20 months Aged Out No longe r eligible based on patient's age to complete this topic Rotavirus Vaccines Aged Out No longer eligible based on patient's age to complete this topic Goals Goal Patient Goal Type Associated Problems [...] Care Plan Weekly blood pressure task No Patterson, [place], [place] Weekly blood pressure task Care Plan Weekly blood pressure task No Patterson, [place], [place] Patient has chronic kidney disease Care Plan Patient has chronic kidney disease No Patterson, [place], [place] Patient has chronic kidney disease Care Plan Patient has chronic kidney disease No Patterson [place], [place] Weekly blood pressure task Care Plan [...] Weekly blood pressure task No Ana Hernandez LPN Weekly blood pressure task Care Plan Weekly blood pressure task No Ana Hernandez LPN Patient has chronic kidney disease Care Plan Patient has chronic kidney disease No Ana Hernandez LPN Patient has chronic kidney disease Care Plan Patient has chronic kidney disease No Hernandez, Ana, CURRIC[employer] CONSULTANT Procedures Procedure Name Priority Date/Time Associated Diagnosis Comments GLUCOSE, WHOLE BLOOD Routine 07/14/2025 2:15 PM EST HEPATITIS PANEL, GENERAL Routine 12/31/2024 10:50 AM EDT Encounter for preventive care HIV 1/2 ANTIGEN/ANTIBODY, FOURTH GENERATION W/RFL Routine 12/31/2024 10:50 AM EDT Encounter for preventive care LIPID PANEL, STANDARD Routine 12/31/2024 10:50 AM EDT Encounter for preventive care POCT GLYCATED HEMOGLOBIN, TOTAL Routine 12/31/2024 9:17 AM EDT Type 2 diabetes mellitus with hyperglycemia, with long-term current use of insulin (CMS/HCC) HPV DNA, LOW/HIGH RISK Routine 12:00 AM EST PAP SMEAR Routine 09/28/2024 12:00 AM EST Cervical cancer screening ALBUMIN, RANDOM URINE W/CREATININE Routine 05/18/2024 3:05 PM EDT Type 2 diabetes mellitus with hyperglycemia, with long-term current use of insulin (CMS/HCC) BITEWING - SINGLE RADIOGRAPHIC IMAGE Routine 05/09/2023 1:00 PM EDT PROPHYLAXIS - ADULT Routine 05/20/2022 1 2:00 AM EDT INTRAORAL - COMPLETE SERIES OF RADIOGRAPHIC IMAGES Routine 04/26/2022 12:00 AM EDT COMPREHENSIVE ORAL EVALUATION - NEW OR ESTABLISHED PATIENT Routine 04/26/2022 12:00 AM EDT from Last 3 Months or Most Recently Relevant to Health Maintenance Results * Glucose, Whole Blood (07/14/2025 2:15 PM EST) Glucose, Whole Blood 109 60 - 115 mg/dL [facility] Comment:METER #: [id number] Testing performed in the Endocrinology Department [address] , [address], [place]. 07/14/2025 2:15 PM EST 07/14/2025 2:18 PM EST us Generic External Data Provider LAB BLOOD ORDERAB LES Final Result Performing Organization Address [facility] Co de Phone Number [facility] [address] [place] [phone] * Hepatitis A,B,C Profile (12/31/2024 10:50 AM EDT) Hepatitis A IgM Nonreactive Nonreactive [facility] Comment:IgM antibodies to YAN V not detected; does not exclude earlyacute or recovered HAV infection. ~Hepatitis B Surface Antibody REACTIVE Nonreactive [facility] Comment:REACTIVE: > 11.99 mI U/mL Hepatitis B Core Antibody Nonreactive Nonreactive [facility] Hepatitis C Antibody Nonreactive Nonreactive [facility] Comment:Antibodies to HCV no t detected; does not exclude early acuteHCV infection. Hepatitis B Surface Ag Negative Negative [facility] Blood Venous blood specimen / Unknown 12/31/2024 10:50 AM EDT 12/31/2024 1:21 PM EDT us Ellen Collier MD LAB BLOOD ORDERABLES Final Result Performing Organization Address [facility] de Phone Number [facility] [address] [place] [phone] * HIV-1/2 Antigen and Antibodies, Fourth Generation, with Reflexes (12/31/2024 10:50 AM EDT) HIV AB/AG Nonreactive Nonreactive [facility] Comment:HIV-1 p24 Ag and/or HIV-1/HIV-2 Ab not detected.A test result that is nonreactive does not exclude thepossibility of exposure to or infection with HIV-1 and/orHIV-2. Nonreactive results in this assay for individualswith prior exposure to HIV-1 and/or HIV-2 may be due toantigen and antibody levels that are below the limit ofdetection of this assay.The Basic6 HIV Ag/Ab Combo assay result andsupplemental assay results should be interpreted inconjunction with the patient's clinical presentation,history and other laboratory results. If the results areinconsistent with clinical evidence, additional testing issuggested to confirm the result. Blood Venous blood specimen / Unknown 12/31/2024 10:50 AM EDT 12/31/2024 1:21 PM EDT Ellen Collier MD LAB BLOOD ORDERABLES Final Result Performing Organization Address [facility] de Phone Number [facility] [address] [place] [phone] * Lipid Panel, Standard (12/31/2024 10:50 AM EDT) Triglycerides 81 <150 mg/dL [facility] Comment:Desirable Triglyceri de: less than 150 mg/dLBorderline High Triglyceride 150-199 mg/dLHigh Triglyceride: 200-499 mg/dLVery High Triglyceride: greater than or equal to 5OO mg/dL Cholesterol 129 <200 mg/dL [facility] Comment:Desirable Cholestero l: less than 200 mg/dLBorderline High Cholesterol: 200-239 mg/dLHigh Cholesterol: greater than 239 mg/dL LDL Cholesterol Calculated 66 <100 mg/dL [facility] Comment:Desirable LDL: less than 100 mg/dLNear Optimal/Above Optimal LDL: 110- 129 mg/dLBorderline High LDL: 130-159 mg/dLHigh LDL: 160-189 mg/dLVery High LDL: greater than or equal to 190 mg/dL HDL Cholesterol 47 >40 mg/dL [facility] Comment:Desirable HDL: great er than 40 mg/dL Note: This HDL assay may give artificially low results in patients with liver disease. Blood Venous blood specimen / Unknown 12/31/2024 10:50 AM EDT 12/31/2024 1:21 PM EDT us Ellen Collier MD LAB BLOOD ORDERABLES Final Result Performing Organization Address [facility] Co de Phone Number [facility] [address] [place] [phone] * (ABNORMAL) POCT HGB A1C (12/31/2024 9:17 AM EDT) Pathologist [facility] Hemoglobin A1C 7.7(A) 4.0 - 6.0 % QC Media Lot # [id number] Lot# Expiration Date Blood 12/31/2024 9:17 AM EDT us Ellen Collier MD POINT OF CARE TEST EN TER/EDIT ORDERABLES Final Result * HPV DNA, Low/High Risk (09/28/2024 12:00 AM EST) [facility] HPV High Risk Negative Negative [facility] HPV Genotype [address] Negative Negative [facility] HPV Genotype [address] Negative [address] [facility] Comment:HPV testing performe d at [facility] (CLIA#[id number]), [address] [place] [address].Testing for HPV was performed using the Santi ANAY 6800system. The presence of HPV in the female genital tract isassociated with a number of diseases, including cervicalcarcinoma. The HPV DNA high risk pool tests for HPV 31, 33,35, 39, 45, 51, 52, 56, 58, 59, 66 and 68. The testing forHPV 16 and 18 genotypes has also been performed. A positiveresult indicates detection of nucleic acid sequences fromone or more subtypes, whereas a negative result indicatessuch sequences were not detected. 09/28/2024 09/29/2024 6:5 0 AM EST us Raheem Dallas CNM LAB BLOOD ORDERABLES Roseline l Result [facility] [address] [place] [phone] * Pap Smear (09/28/2024 12:00 AM EST) Swab Cervix uteri structure / Unknown 09/28/2024 09/29/2024 6:50 AM [facility] - 10/18/2024 8:32 AM EDT ----- ------- Name: Claudine Larson Age/Sex: 54/F : 1970 Unit#: [id number] Attend Dr: RAHEEM DALLAS CNM Re09/28/24 Status: [facility] REF [facility] Disch: ----- ------- SPEC : [id number] RECD: 09/29/24 STATUS: REGINO FERMIN NUM: [id number] ANAI: 09/28/24-[address]: RAHEEM DALLAS CNM ENTERED: 09/29/24 SP TYPE: Pap Smr OT DR: ORDERED: Pap Smear Interpretation Satisfactory for evaluation. Negative for intraepithelial lesion or malignancy. Mild inflammation. HPV High Risk: Negative HPV Genotyping 16: Negative HPV Genotyping 18: Negative Clinical Information LMP: Post menopausal Previous PAP test: 2020/NIL/HPV neg Material Received Cervix ----- ------- Signed (signature on file) MICHELINE Zarco ([facility]) 10/18/24 0832 ----- ------- END OF REPORT us Raheem Dallas CNM LAB CYTOLOGY ORDERABLES F inal Result Performing Organization Address [facility] Co de Phone Number [facility] [address] [place] [phone] * Albumin, Random Urine W/Creatinine (05/18/2024 3:05 PM EDT) Creatinine, Urine 120.83 mg/dL [facility] Microalbumin Urine 11.0 mg/L [facility] Microalbum Creatinine Ratio Ur 9.1 <30 ug/mg cr [facility] Comment:Albumin/Creatinine R atio Reference Ranges: Normal: < 30 ug/mg creatinine Microalbuminuria: 30 - 300 ug/mg creatinineClinical Albuminuria: > 300 ug/mg creatinine Urine (Urine, Random) 05/18/2024 3:05 PM EDT 05/18/2024 4:38 PM EDT us Ellen Collier MD LAB URINE ORDERABLES Final Result Performing Organization Address [facility] Co de Phone Number [facility] [address] [place] [address] [phone] from Last 3 Months or Most Recently Relevant to Health Maintenance Additional Health Concerns Active Problems Noted Date [...] 07/06/2025 Patient has chronic kidney disease 07/06/2025 Insurance [facility] C3 DENTAL-[facility] MEDICAID STAND ADULT Care Teams Erp Programmer Relationship Specialty Start Date End Date Ellen Valladares MD [address] [place] [phone] PCP - General Family Medicine 10/03/21
== END 2025-07-14 14:45 | disposition home or self-care (01) ==
LOC: HO.ENCR 14:08
PROVIDERS: PCP Internal Medicine; Visit Provider Internal Medicine
DX: E11.9 Type 2 diabetes mellitus without complications (principal); E11.65 Type 2 diabetes mellitus with hyperglycemia

== ENCOUNTER → 2025-07-14 14:07 | Outpatient (BNVA) | payer MEDICAID, SELFPAY | PROVIDERS: PCP Internal Medicine; Visit Provider Internal Medicine | DX: E11.9 Type 2 diabetes mellitus without complications (principal); Z79.4 Long term (current) use of insulin | CPT/HCPCS: 82947; 83036; 99212 ==